=== PATIENT | male | born 1940 | race Caucasian/White ===

== ENCOUNTER 2018-11-15 21:51 | Emergency (ER) | payer MEDICARE, OTHER ==
[2018-11-15] MEDS ORDERED: Morphine 4 MG/ML VIAL ONE ×2 (22:14→22:35)
[2018-11-15] MEDS ORDERED: Ondansetron PF 4 MG/2 ML Vial ONE (22:35)
[2018-11-15 22:38] LABS: #Basophils 0.1 thou/uL (0.0-0.2); #Eosinphils 0.1 thou/uL (0.0-0.7); #Lymphocytes 2.6 thou/uL (1.20-3.40); #Monocytes 1.2 thou/uL (0.11-0.59); #Neutrophils 9.8 thou/uL (1.40-6.50); %Basophils 0.5 % (0.0-1.0); %Eosinophils 1.1 % (0.0-10.0); %Monocytes 8.5 % (0.0-10.0); Hemoglobin 12.7 g/dL (14.0-18.0); Mean Corpuscular Hemoglobin 30.7 pg (27.0-31.0); Mean Corpuscular Volume 90.3 fL (78.0-98.0); Mean Platelet Volume 7.8 fL (7.4-10.4); Platelet Count 198 thou/uL (130-400); RBC Distribution Width 12.4 % (11.5-14.5); Red Blood Cell (RBC) Count 4.14 mill/uL (4.70-6.10); White Blood Cell (WBC) Count 13.8 thou/uL (4.8-10.8)
[2018-11-15 23:00] LABS: ALT (SGPT) 14 U/L (8-55); AST (SGOT) 19 U/L (5-34); Albumin 4.3 g/dL (3.4-4.8); Alkaline Phosphatase 111 U/L (40-150); Anion Gap 19 mmol/L (10-20); BUN (Urea Nitrogen) 26 mg/dL (8.4-25.7); Bilirubin, Total 0.4 mg/dL (0.2-1.2); Calc. Creatinine Clearance 0 mL/min (70-130); Calcium 9.6 mg/dL (7.8-10.44); Carbon Dioxide 25 mmol/L (23-31); Chloride 102 mmol/L (98-107); Estimated GFR-MDRD 65; Globulin 2.7 g/dL (2.4-3.5); Glucose 122 mg/dL (83-110); Sodium 142 mmol/L (136-145)
[2018-11-15] MEDS ORDERED: HYDROmorphone 0.5 MG/0.5 ML SYRINGE ONE (23:04)
[2018-11-15] MEDS ORDERED: niCARdipine 20MG In NaCl 20 MG/200 ML BAG ONE (23:30)
--- NOTE | 2018-11-15 23:39 | CT ---
CT arteriogram chest with IV contrast and 3-D imaging CT arteriogram abdomen with IV contrast and 3-D imaging HISTORY: Chest and abdomen pain with radiation to the back. FINDINGS: Intimal flap within the lumen of the descending aorta extends from the distal arch just bey ond the left subclavian artery origin into each iliac artery. There is also extension into the left renal artery with some thrombus apparent. Along the lateral cortex of the superior pole left kidney, a 2.7 cm nonmass-like area of decreased density likely represents an infarct. There is flow within the true and false lumen. Good flow within the pulmonary arteries and the remainder of the visceral a rteries. Mild fusiform ectasia of the lower abdominal aorta. Postoperative changes the mediastinum. Calcified granulomata are consistent with healed granulomatous disease. Old bilateral rib fractures. Gallbladder surgically absent with mild associated distention of the biliary system. Prominent degenerative changes lumbar spine. Diverticula arise from the colon without adjacent inflammation. Pelvis was incompletely imaged. 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 Probable small infarct involving the superior pole left kidney. Atherosclerosis. Findings were called to Dr. Gonzalez in the emergency department at 2331 hours. Code CR.
[2018-11-15] MEDS ORDERED: Esmolol 2,500 MG/250 ML 250 ML ONE (23:46)
== END 2018-11-15 23:56 | disposition short-term general hospital (02) ==
LOC: ERS 21:51
DX: I71.01 Dissection of thoracic aorta (principal); E78.5 Hyperlipidemia, unspecified; Z79.899 Other long term (current) drug therapy
CPT/HCPCS: 71275; 80053; 84484; 85025; 93005; 96365; 96374; 96375; J1170; J2270; J2405

== ENCOUNTER 2019-09-19 10:03 | Inpatient (IN) | payer MEDICARE ==
[2019-09-19 10:28] LABS: #Eosinphils 0.3 thou/uL (0.0-0.7); #Lymphocytes 1.9 thou/uL (1.20-3.40); #Monocytes 1.1 thou/uL (0.11-0.59); #Neutrophils 7.9 thou/uL (1.40-6.50); %Lymphocytes 17.1 % (21.0-51.0); %Monocytes 9.8 % (0.0-10.0); Hemoglobin 11.3 g/dL (14.0-18.0); Mean Corpuscular HGB CONC 33.5 g/dL (32.0-36.0); Mean Corpuscular Hemoglobin 31.3 pg (27.0-31.0); Mean Corpuscular Volume 93.5 fL (78.0-98.0); Platelet Count 197 thou/uL (130-400); Red Blood Cell (RBC) Count 3.61 mill/uL (4.70-6.10); White Blood Cell (WBC) Count 11.3 thou/uL (4.8-10.8)
--- NOTE | 2019-09-19 10:28 | CT ---
CT BRAIN NONCONTRAST: DATE: 09/19/2019 HISTORY: 79-year-old male with acute stroke symptoms: Dysarthria and altered mental status. Dr. Tubbs verbally gave this stroke alert protocol report by telephone to Dr. Benitez of the ER at 10:25 A M 09/19/2019 FINDINGS: There is no evidence of acute intra-axial or extra-axial hemorrhage. There is no midline shift or any other mass effect. There is no extra-axial fluid collection. There is no evidence of obstructive hydrocephalus. Calvarium is intact. IMPRESSION: No acute intracranial findings.
--- NOTE | 2019-09-19 10:37 | RAD ---
Exam: Chest one view HISTORY:Altered mental status. First degree heart block. Comparison: 11/25/2010 FINDINGS: Cardiac silhouette:Upper normal cardiac silhouette. Stable sternotomy wires. Aorta: Interval placement of a vascular stent starting at the aortic knob and extending along the christopher cending thoracic aorta. Pulmonary vessels: Normal Costophrenic angles: Clear LUNGS: No masses or consolidation. Pneumothorax: None Osseous abnormalities: No acute osseous abnormalities. There is osteopenia. Old right rib fractures a nd chronic degenerative changes involving both shoulders. IMPRESSION: 1. No acute cardiopulmonary process. 2. Interval placement of a long segment stent involving the descending thoracic aorta, starting at th e aortic arch 3. Chronic lung parenchymal changes.
[2019-09-19 10:38] LABS: Prothrombin Time 12.7 SEC (12.0-14.7)
[2019-09-19 10:39] LABS: PTT 43.1 SEC (22.9-36.1)
[2019-09-19 10:42] LABS: ALT (SGPT) 25 U/L (8-55); AST (SGOT) 38 U/L (5-34); Albumin 3.9 g/dL (3.4-4.8); Alkaline Phosphatase 131 U/L (40-110); Anion Gap 11 mmol/L (10-20); BUN (Urea Nitrogen) 34 mg/dL (8.4-25.7); Bilirubin, Total 0.3 mg/dL (0.2-1.2); CK (CPK) 129 U/L (30-200); Calc. Creatinine Clearance 0 mL/min (70-130); Calcium 8.8 mg/dL (7.8-10.44); Carbon Dioxide 26 mmol/L (23-31); Chloride 105 mmol/L (98-107); Estimated GFR-MDRD 59; Globulin 2.8 g/dL (2.4-3.5); Glucose 98 mg/dL (83-110); Lipase 13 U/L (8-78); Potassium 4.4 mmol/L (3.5-5.1); Protein, Total 6.7 g/dL (5.8-8.1); Sodium 138 mmol/L (136-145)
[2019-09-19] MEDS ORDERED: Furosemide 100 MG/10 ML VIAL ONE (10:58)
[2019-09-19 12:03] LABS: Bilirubin Negative (Negative); Blood, Urine Negative (Negative); Clarity Clear (Clear); Glucose, Urine (Dipstick) Normal (Negative); Leukocyte Negative Leu/uL (Negative); Nitrite Negative (Negative); Protein, Urine (Dipstick) Negative (Neg-Trace); Urobilinogen Normal mg/dL (Less than 2)
[2019-09-19 14:15] LABS: Troponin I Less than 0.010 ng/mL (< 0.028)
[2019-09-19] MEDS ORDERED: Ondansetron ODT 4 MG TAB SL PRN (14:37)
[2019-09-19] MEDS ORDERED: Ondansetron PF 4 MG/2 ML Vial IVP PRN (14:37)
[2019-09-19 15:56] VITALS: BMI 27.1
[2019-09-19 16:45] LABS: Troponin I 0.016 ng/mL (< 0.028)
[2019-09-19] MEDS ORDERED: Acetaminophen 325 MG TAB PO PRN (16:49)
[2019-09-19] MEDS ORDERED: Aspirin 81 mg Enteric Coated Tablet PO SCH (17:00)
--- NOTE | 2019-09-19 17:13 | PDOC.HHP ---
Hospitalist Results - Labs Result Diagrams: 09/19/19 10:04 09/19/19 10:04 Lab results: WBC 11.3 thou/uL (4.8-10.8) H 09/19/19 10:04 Hgb 11.3 g/dL (14.0-18.0) L 09/19/19 10:04 Hct 33.7 % (42.0-52.0) L 09/19/19 10:04 MCV 93.5 fL (78.0-98.0) 09/19/19 10:04 Plt Count 197 thou/uL (130-400) 09/19/19 10:04 Neutrophils % 70.0 % (42.0-75.0) 09/19/19 10:04 Sodium 138 mmol/L (136-145) 09/19/19 10:04 Potassium 4.4 mmol/L (3.5-5.1) 09/19/19 10:04 Chloride 105 mmol/L (98-107) 09/19/19 10:04 Carbon Dioxide 26 mmol/L (23-31) 09/19/19 10:04 BUN 34 mg/dL (8.4-25.7) H 09/19/19 10:04 Creatinine 1.18 mg/dL (0.7-1.3) 09/19/19 10:04 Glucose 98 mg/dL (83-110) 09/19/19 10:04 Calcium 8.8 mg/dL (7.8-10.44) 09/19/19 10:04 Total Bilirubin 0.3 mg/dL (0.2-1.2) 09/19/19 10:04 AST 38 U/L (5-34) H 09/19/19 10:04 ALT 25 U/L (8-55) 09/19/19 10:04 Alkaline Phosphatase 131 U/L (40-110) H 09/19/19 10:04 Ammonia 20 umol/L (18-72) 09/19/19 10:04 Creatine Kinase 129 U/L (30-200) 09/19/19 10:04 Troponin I 0.016 ng/mL (< 0.028) 09/19/19 16:09 Serum Total Protein 6.7 g/dL (5.8-8.1) 09/19/19 10:04 Albumin 3.9 g/dL (3.4-4.8) 09/19/19 10:04 Lipase 13 U/L (8-78) 09/19/19 10:04 Urine Ketones Negative mg/dL (Negative) 09/19/19 11:40 Urine Blood Negative (Negative) 09/19/19 11:40 Urine Nitrite Negative (Negative) 09/19/19 11:40 Ur Leukocyte Esterase Negative Bella/uL (Negative) 09/19/19 11:40
[2019-09-19] MEDS: HYDROcodone/Acetaminophen 10/325 mg Tablet PO PRN (17:40)
--- NOTE | 2019-09-19 18:07 | PDOC.EVN ---
Event Note - Event Note Event Note: Patient seen and examined, and discussed with Gayathri Locke PA-c. Patient was brought to the hospital by his . She found him down in the floor. He does not remember the event of this AM. He says he remembers getting up this morning , and puting on his jeans. The next thing he remembers is waking in the hospital. Prior to this he was feeling fine. He denies chest pain or shortness of breath. no fever or chills, no dizziness or lightheadedness. He has never had anything like this happen before. He has had what sounds like a CABG, and Thoracic Aortic dissection repair. a few years ago, but his symptom at that time was severe back pain down the center of his back. His exam was essentially unremarkable, no worrisome murmurs Agree with the plan outlined by Gayathri, will check orthostatics, Echo, and carotid dopplers, and monitor for arrhythmia. Will also request his records from [facility], which he says he had a recent Echo. Also the records from his prior surgery will be requested as well.
[2019-09-19] MEDS ORDERED: Sodium Chloride 0.9% 500 ML IV SCH (18:15)
[2019-09-19] MEDS: Mirtazapine 15 MG TAB PO SCH (20:46)
[2019-09-19] MEDS: Carvedilol 25 MG TAB PO SCH (20:47)
[2019-09-19] MEDS ORDERED: Amlodipine 10 MG TAB PO SCH (21:00)
[2019-09-20] MEDS: HYDROcodone/Acetaminophen 10/325 mg Tablet PO PRN ×5 (00:01→20:52)
[2019-09-20 04:29] LABS: #Eosinphils 0.3 thou/uL (0.0-0.7); #Lymphocytes 2.9 thou/uL (1.20-3.40); #Monocytes 1.1 thou/uL (0.11-0.59); #Neutrophils 5.3 thou/uL (1.40-6.50); %Eosinophils 3.4 % (0.0-10.0); %Lymphocytes 29.8 % (21.0-51.0); %Monocytes 11.6 % (0.0-10.0); %Neutrophils 55.2 % (42.0-75.0); Mean Corpuscular HGB CONC 33.4 g/dL (32.0-36.0); Mean Corpuscular Hemoglobin 31.2 pg (27.0-31.0); Mean Corpuscular Volume 93.6 fL (78.0-98.0); Mean Platelet Volume 7.7 fL (7.4-10.4); Platelet Count 210 thou/uL (130-400); RBC Distribution Width 13.1 % (11.5-14.5); Red Blood Cell (RBC) Count 3.84 mill/uL (4.70-6.10); White Blood Cell (WBC) Count 9.6 thou/uL (4.8-10.8)
[2019-09-20 04:54] LABS: Anion Gap 11 mmol/L (10-20); BUN (Urea Nitrogen) 29 mg/dL (8.4-25.7); Calc. Creatinine Clearance 84 mL/min (70-130); Calcium 9.2 mg/dL (7.8-10.44); Carbon Dioxide 33 mmol/L (23-31); Cardiac Risk 3.5 (Less than 4.5); Chloride 103 mmol/L (98-107); Cholesterol 156 mg/dl (< 200 Desired); Estimated GFR-MDRD 81; Glucose 98 mg/dL (83-110); HDL Cholesterol 44 mg/dL (>60 Neg Risk); LDL Cholesterol, Calculated 102 mg/dL; Potassium 4.1 mmol/L (3.5-5.1); Sodium 143 mmol/L (136-145); Triglycerides 50 mg/dL (Less than 150)
[2019-09-20] MEDS: Aspirin 81 mg Enteric Coated Tablet PO SCH (08:36)
[2019-09-20] MEDS: Clopidogrel Bisulfate 75 MG TAB PO SCH (08:37)
[2019-09-20] MEDS: Carvedilol 25 MG TAB PO SCH (08:38)
[2019-09-20] MEDS: Enoxaparin Sodium 40 MG/0.4 ML SYRINGE SC SCH (08:39)
[2019-09-20] MEDS: Venlafaxine HCl XR 75 MG CAP PO SCH (08:39)
--- NOTE | 2019-09-20 12:34 | CON ---
DATE OF CONSULTATION: 09/20/2019 HISTORY OF PRESENT ILLNESS: Mr. Satish Hester is an 79-year-old male , who was consulted for an episode of altered mental status. The patient was brought to the hospital by his because she found him down on the floor. The patient does not remember this event. He remembers waking up in the hospital. He denies any focal weakness or focal paresthesias. He also denies tingling, numbness, dizziness, problems with swallowing. There was a concern about slurred speech. History is taken from the patient and review of the medical records. REVIEW OF SYSTEMS: The patient denies nausea, vomiting, headache, dizziness, focal weakness or paresthesias, or chest pain. ALLERGIES: NO KNOWN DRUG ALLERGIES. PAST MEDICAL HISTORY: Coronary artery disease. PAST SURGICAL HISTORY: He may have thoracic aortic dissection, status post repair. FAMILY HISTORY: No family history of seizures. SOCIAL HISTORY: Lives with his . Denies alcohol and illegal drug abuse. PHYSICAL EXAMINATION: 111/61, 66 18 HEENT: Normocephalic, atraumatic CVS: Regular rate and rhythm. CHEST: Clear. ABDOMEN: Soft. NEUROLOGIC: Mental status; the patient is alert and oriented to person, place, and time. Speech is clear. Cranial nerves 2 through 12 intact. Sensory, withdraws to pinprick bilaterally. Motor, muscle tone and bulk are normal. Strength 5/5 bilaterally. Cerebellar, intact. Reflexes, symmetric bilaterally. Gait not tested because of the patient's safety reasons. DIAGNOSTIC STUDIES: Data reviewed. I reviewed the CT of the brain, which did not reveal any acute intracranial findings. Labs were unremarkable. ASSESSMENT AND PLAN: Mr. Satish Hester is an 79-year-old male, consulted for altered mental status. The differential diagnosis includes TIA versus seizure, consider carotid Dopplers and echocardiography. Recommend MRI of the brain to rule out acute intracranial pathology. Recommend EEG to rule out presence of interictal epileptiform discharges. Continue neuro checks every 4 hours. Continue home medications. Continue aspirin and Plavix for secondary stroke prevention. Recommend checking fasting blood glucose and lipid panel. Permissive control of blood pressure at this time. Continue medical management per Primary Team. We will continue to follow. Thank you for the consult. Job ID: [id number] [facility]
[2019-09-20] MEDS: Pregabalin 75 MG CAP PO PRN (13:59)
--- NOTE | 2019-09-20 14:23 | CON ---
DATE OF CONSULTATION: HISTORY: Satish Hester is an 79-year-old white male, admitted after he was found on the floor by his . He does have history of CABG x3 in [place] in 2004. Apparently in 2008, he had coronary stents placed. He was admitted here in November 2010 for exertional dyspnea, was seen by Dr. House. He underwent Cardiolite testing, which revealed possible mild reversibility in the anteroseptal wall at the body and base. No further evaluation was performed. He also presented in October 2018 with finding of aortic dissection of the descending aorta into the left renal artery and each iliac artery. He presented with back pain with this. He then was sent to [facility] in [place]. It sounds as if he had aortic stent placement. He did not have any type of open surgical procedure performed. He denies any recent chest discomfort or shortness of breath, lightheadedness, or dizziness. He was found on the floor by his and Paramedics were called. He has no recollection of anything that happened yesterday until he woke up in the hospital. PAST MEDICAL HISTORY: Hypertension, hypercholesterolemia, osteoarthritis, coronary artery disease, and history of descending aortic dissection with stent placement. PAST SURGICAL HISTORY: CABG x3 in 2004, coronary artery stenting in 2008. Aortic stent placement for descending aortic dissection in October 2018. Right total hip replacement, left total knee replacement, cholecystectomy, and appendectomy. MEDICATIONS: 1. Amlodipine 10 mg at bedtime. 2. Carvedilol 25 b.i.d. 3. Clopidogrel 75 daily. 4. Mirtazapine 15 at bedtime. 5. Pregabalin 150 mg b.i.d. p.r.n. 6. Effexor 75 ER daily. 7. He does not take aspirin. He states that this was stopped due to excessive bruising. He states he has taken the clopidogrel since he had bypass surgery. ALLERGIES: NONE. FAMILY HISTORY: Positive for coronary artery disease. SOCIAL HISTORY: He does not smoke. He occasionally drinks beer. REVIEW OF SYSTEMS: A 10-point review of systems unremarkable. He denies any nausea, vomiting, diarrhea, or fever. PHYSICAL EXAMINATION: VITAL SIGNS: Blood pressure 111/61 and pulse of 53. HEENT: PERRL. NECK: Supple. CHEST: Clear. CARDIAC: S1 and S2 normal without any S3, S4, or murmurs. Carotid upstrokes normal without bruits. ABDOMEN: Normal bowel sounds without tenderness or organomegaly. EXTREMITIES: Revealed no clubbing or cyanosis. There is trace pedal edema. NEUROLOGIC: Grossly intact. SKIN: Warm and dry. LABORATORY DATA: EKG reveals normal sinus rhythm with left bundle-branch block. On the monitor at times, he has heart rates in the 50s. Chest x-ray revealed chronic lung parenchymal changes. There was a stent in the descending thoracic aorta starting at the aortic arch. Hemoglobin 12.0, hematocrit 35.9, white count 9600 , and platelets 210,000. Sodium 143, potassium 4.1, chloride 101, carbon dioxide 33, BUN 29, and creatinine 0.9. His BUN was up to 34 at the time of admission. Cholesterol 156, triglycerides 50, HDL 44, and LDL 102. Troponin I and CK are normal. Echocardiogram revealed mild left ventricular enlargement with ejection fraction of 45% to 50%, moderate left atrial enlargement, mild mitral regurgitation, aortic valve sclerosis with mild aortic regurgitation, mild tricuspid regurgitation, and mild pulmonic regurgitation. IMPRESSION: 1. The patient found down at home. Certainly may have had an episode of syncope with finding of bradycardia since he has been monitored. Also, he is somewhat volume depleted with elevated BUN to creatinine ratio, although he denies any vomiting or diarrhea and has not had fever. 2. Status post coronary artery bypass grafting x3 in 2004. 3. Coronary stenting in 2008. 4. History of descending aortic dissection with stenting at [facility] in [place]. 5. Hypertension. 6. Hyperlipidemia, not on a statin at the present time. 7. Positive family history. 8. Left bundle-branch block. RECOMMENDATIONS: With his bradycardia, with rates in the low 50s at times, I will reduce his dose of carvedilol and add lisinopril for blood pressure control. Also, he will be started on atorvastatin for his elevated cholesterol. He is also undergoing neurological workup. I will follow the patient with you. Job ID: [id number] [facility]
--- NOTE | 2019-09-20 14:52 | HP ---
PRIMARY CARE PHYSICIAN: Dr. Davenport. CHIEF COMPLAINT: "I was found down at home and don't remember passing out." HISTORY OF PRESENT ILLNESS: The patient is an extremely pleasant 79-year-old male, with a medical history significant for hypertension; high cholesterol; and prostate cancer, which was treated for in 2014, and a CABG with an "arterial tear" afterward in the summer of 2018. 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 He presents to the ER today after being found down at home by his . He denies urinating or defecating on himself with the incident. He does not remember passing out or falling down. He remembers getting up this morning and getting dressed and then he woke up in the ambulance on his way to the hospital. He denies feeling any different this morning while getting ready or any change in his normal activities. Denies chest pain, shortness of breath, dizziness, sick contacts. He currently denies any pain. During his ER stay, they completed a chest x-ray, which showed no acute cardiopulmonary processes and a brain CT which showed no acute intracranial findings. He was given 80 mg of Lasix IV - patient does not recall why this was given to him. They completed a series of blood work. First troponin was less than 0.010, two more are currently scheduled to continue trending them. His sodium level was 138, potassium 4.4, chloride 105, carbon dioxide 26, BUN was 34, creatinine 1.18, estimated GFR 59, glucose 98, AST 38, ALT 25, and alkaline phosphatase 131. CK 129. Ammonia level 20. WBC 11.3 , RBC 3.61, hemoglobin 11.3, and hematocrit 33.7. Urine analysis was completed. PAST MEDICAL HISTORY: Includes prostate cancer, which he was treated for in 2014, has been in remission since then; hyperlipidemia; and hypertension. PAST SURGICAL HISTORY: CABG x3 in the summer followed by an arterial tear after lifting heavy feed bags; left knee replacement; right hip replacement; and then at the age of 15, he had a left ankle surgery that had some metal components inserted. ALLERGIES: No known drug allergies. MEDICATIONS: Pregabalin 150 mg PO PRN Mirtazapine 15 mg PO HS Carvedilol 25 mg PO BID Amlodipine Besylate 10 mg PO HS Clopidogrel 75 mg PO daily Venlafaxine HCl 75 mg PO daily SOCIAL HISTORY: Denies alcohol or drug use, does occasionally chew tobacco. FAMILY HISTORY: Dad in his 80's from history of CHF. Mom after a fall which led to hemorrhagic brain bleed. Two children have passed from cystic fibrosis. REVIEW OF SYSTEMS: All other review of systems are negative unless noted in the HPI. PHYSICAL EXAMINATION: VITAL SIGNS: Temp 97.5, pulse 70, respiratory rate 16, O2 sat 99% on room air, and BP sitting 112/59. GENERAL APPEARANCE: No acute distress. Awake, alert. HEENT: Moist mucosa. Normocephalic and atraumatic. NECK: Supple, symmetric. No JVD. No lymphadenopathy. HEART: Heart has regular rate and rhythm. No murmur. No gallops. No rubs. Normal peripheral pulses. RESPIRATORY: Clear to auscultation bilaterally. No wheezes, no rales, no rhonchi. Normal chest expansion. GASTROINTESTINAL: Soft, nontender, and nondistended. Normal bowel sounds. EXTREMITIES: 1+ lower extremity edema bilaterally. No cyanosis. No clubbing. SKIN: Normal turgor. No lesions. No rashes. NEUROLOGIC: No focal deficits. Cranial nerves grossly intact. Normal sensation to touch. Slightly slurred speech but is missing bottom denture plate. MUSCULOSKELETAL: Normal tone. Normal strength. No muscle wasting. PSYCHIATRIC: Normal affect. Normal behavior. Alert and oriented x3. LABORATORY DATA: Labs were reviewed as above. Prolactin level to be added on to be completed. IMPRESSION: 1. Syncope, acute. 2. Transient ischemic attack, acute. 3. Hypertension, chronic. 4. Hyperlipidemia, chronic. PLAN: Echo ordered for the morning, orthostatics to be completed with the next vital signs check. Neurology consult to see the patient for possible syncope versus TIA. Prolactin to be run off labs that were previously drawn in ER to be closer to the time of his event this morning. Aspirin 81 mg added to his normal medication regimen. Home medications to be restarted. VTE prophylaxis, Lovenox 40 mg subcu daily. He will be admitted to the Stroke Services and monitored on telemetry overnight. Code status: MARA DPOA: Tania Nolasco [phone] Job ID: [id number] [facility]
--- NOTE | 2019-09-20 15:08 | EEG ---
Referring Physician: Martínez OROZCO EEG # [id number] TEST TYPE: ROUTINE PORTABLE INPATIENT REPORT: This EEG was performed using 24 channel [employer] video digital EEG machine with 24 disc electrodes. This was a routine EEG recording. BACKGROUND: The posterior background rhythm is 9-10 hertz. The background rhythm attenuates with eye opening and enhances with eye closure. HYPERVENTILATION: Not performed. PHOTIC STIMULATION: Bioccipital symmetric driving response is observed. SLEEP: Drowsiness and stage I sleep is observed. EEG DIAGNOSIS: NORMAL AWAKE, DROWSY AND ASLEEP EEG. Gold Leaf Roller: KATHLEEN Hammer Fitter: [email or web address] ECHOLS
--- NOTE | 2019-09-20 16:21 | PDOC.HOSPP ---
- Subjective Encounter Date: 09/20/19 Encounter Time: 16:19 Subjective: Mr. Hester was seen today in follow-up of syncope/altered mental status. Today he says he feels fine. - Objective Vital Signs & Weight: Vital Signs (12 hours) Temp Pulse Resp BP BP BP BP 09/20/19 15:39 97.6 F 55 L 16 104/63 09/20/19 14:00 93/51 L 87/50 L 09/20/19 11:35 97.6 F 53 L 16 111/61 09/20/19 08:34 62 131/66 09/20/19 07:55 97.7 F 63 16 121/61 09/20/19 04:51 97.6 F 66 16 134/77 BP Pulse Ox 09/20/19 15:39 95 09/20/19 14:00 117/58 L 09/20/19 11:35 93 L 09/20/19 08:34 09/20/19 07:55 92 L 09/20/19 04:51 95 Weight Admit Weight 199 lb 11.2 oz Weight 199 lb 11.2 oz I&O: 09/19/19 09/20/19 09/21/19 06:59 06:59 06:59 Intake Total 1560 Output Total 1415 Balance 145 Result Diagrams: 09/20/19 04:21 09/20/19 04:21 Hospitalist ROS - Medication Medications: Active Medications Generic Name Dose Route Start Last Admin Trade Name Freq PRN Reason Stop Dose Admin Hydrocodone Bitart/Acetaminophen 1 tab 09/19/19 17:26 09/20/19 11:05 [place] 10/325 PO 1 tab Q4H PRN Administration CHRONIC PAIN Amlodipine Besylate 10 mg 09/19/19 21:00 09/19/19 20:47 Norvasc PO Not Given HS JANAE Aspirin 81 mg 09/20/19 09:00 09/20/19 08:36 Ecotrin PO 81 mg DAILY JANAE Administration Clopidogrel Bisulfate 75 mg 09/20/19 09:00 09/20/19 08:37 Plavix PO 75 mg DAILY JANAE Administration Enoxaparin Sodium 40 mg 09/20/19 09:00 09/20/19 08:39 Lovenox SC 40 mg 0900 JANAE Administration Mirtazapine 15 mg 09/19/19 21:00 09/19/19 20:46 Remeron PO 15 mg HS JANAE Administration Pregabalin 150 mg 09/19/19 21:00 09/20/19 13:59 Lyrica PO 150 mg BIDPRN PRN Administration Pain Sodium Chloride 10 ml 09/19/19 21:00 09/20/19 08:38 Flush - Normal Saline IVF 10 ml Q12HR JANAE Administration Venlafaxine HCl 75 mg 09/20/19 09:00 09/20/19 08:39 Effexor Xr PO 75 mg DAILY JANAE Administration - Exam Eye: PERRL, anicteric sclera Heart: RRR, no murmur, no gallops, no rubs, normal peripheral pulses Respiratory: CTAB, no wheezes, no rales, no ronchi, normal chest expansion, no tachypnea, normal percussion Gastrointestinal: soft, non-tender, non-distended, normal bowel sounds, no palpable masses, no hepatomegaly Extremities: no cyanosis, no edema Hosp A/P (1) Syncope Code(s): R55 - SYNCOPE AND COLLAPSE Status: Acute (2) CAD (coronary artery disease) Code(s): I25.10 - ATHSCL HEART DISEASE OF [place] CORONARY ARTERY W/O ANG PCTRS Status: Acute (3) Hypertension Code(s): I10 - ESSENTIAL (PRIMARY) HYPERTENSION Status: Acute (4) Hyperlipidemia Code(s): E78.5 - HYPERLIPIDEMIA, UNSPECIFIED Status: Acute - Plan * Altered mental status- ? etiology * Will complete a Neurological evaluation as well as Cardiac Evaluation * Echo results noted- he has mildly depressed systolic function * EEG was normal * Bradycardia- agree with reduction of the dose of Metoprolol * HTN- blood pressure is low- agree with holding Lisinopril
[2019-09-20] MEDS: Carvedilol 6.25 MG TAB PO SCH (16:24)
[2019-09-20] MEDS: Lisinopril 10 MG TAB PO SCH (20:48)
[2019-09-20] MEDS: Mirtazapine 15 MG TAB PO SCH (20:52)
[2019-09-20] MEDS: Atorvastatin Calcium 40 MG TAB PO SCH (20:52)
[2019-09-21] MEDS: HYDROcodone/Acetaminophen 10/325 mg Tablet PO PRN ×4 (03:32→20:37)
[2019-09-21 04:49] LABS: Anion Gap 14 mmol/L (10-20); BUN (Urea Nitrogen) 27 mg/dL (8.4-25.7); Calc. Creatinine Clearance 88 mL/min (70-130); Calcium 9.3 mg/dL (7.8-10.44); Carbon Dioxide 24 mmol/L (23-31); Chloride 103 mmol/L (98-107); Estimated GFR-MDRD 86; Glucose 90 mg/dL (83-110); Potassium 4.4 mmol/L (3.5-5.1); Sodium 137 mmol/L (136-145)
[2019-09-21] MEDS: Venlafaxine HCl XR 75 MG CAP PO SCH (08:27)
[2019-09-21] MEDS: Carvedilol 6.25 MG TAB PO SCH ×2 (08:27→18:37)
[2019-09-21] MEDS: Aspirin 81 mg Enteric Coated Tablet PO SCH (08:28)
[2019-09-21] MEDS: Clopidogrel Bisulfate 75 MG TAB PO SCH (08:28)
[2019-09-21] MEDS: Enoxaparin Sodium 40 MG/0.4 ML SYRINGE SC SCH (08:28)
[2019-09-21] MEDS: Lisinopril 10 MG TAB PO SCH ×2 (08:29→20:39)
[2019-09-21] MEDS: Sodium Chloride 0.9% 500 ML IV SCH ×2 (10:19→15:54)
--- NOTE | 2019-09-21 10:44 | PDOC.HOSPP ---
- Subjective Encounter Date: 09/21/19 Subjective: Patient is alert and oriented to person, place and time. More interactive today and follows commands appropriately. - Objective Vital Signs & Weight: Vital Signs (12 hours) Temp Pulse Resp BP BP BP BP 09/21/19 08:47 95/55 L 87/57 L 09/21/19 08:29 100/69 09/21/19 08:27 100/69 09/21/19 07:13 98.2 F 77 18 100/69 09/21/19 04:00 98 F 76 18 140/88 09/21/19 00:00 98.2 F 64 16 137/70 BP Pulse Ox 09/21/19 08:47 134/59 L 09/21/19 08:29 09/21/19 08:27 09/21/19 07:13 94 L 09/21/19 04:00 93 L 09/21/19 00:00 92 L Weight Admit Weight 199 lb 11.2 oz Weight 199 lb 11.2 oz I&O: 09/20/19 09/21/19 09/22/19 06:59 06:59 06:59 Intake Total 1560 1920 Output Total 1415 Balance 145 1920 Result Diagrams: 09/20/19 04:21 09/21/19 04:08 Radiology Reviewed by me: Yes EKG Reviewed by me: Yes Hospitalist ROS - Review of Systems Constitutional: denies: fever, chills, sweats, weakness, malaise, other Eyes: denies: pain, vision change, conjunctivae inflammation, eyelid inflammation, redness, other ENT: denies: ear pain, ear discharge, nose pain, nose discharge, nose congestion , mouth pain, mouth swelling, throat pain, throat swelling, other Respiratory: denies: cough, dry, shortness of breath, hemoptysis, SOB with excertion, pleuritic pain, sputum, wheezing, other Cardiovascular: denies: chest pain, palpitations, orthopnea, paroxysmal noc. dyspnea, edema, light headedness, other Gastrointestinal: denies: nausea, vomiting, abdominal pain, diarrhea, constipation, melena, hematochezia, other Genitourinary: denies: dysuria, frequency, incontinence, hematuria, retention, other Musculoskeletal: reports: hand pain, foot pain Skin: denies: rash, lesions, trip, bruising, other Neurological: denies: weakness, numbness, incoordination, change in speech, confusion, seizures, other - Medication Medications: Active Medications Generic Name Dose Route Start Last Admin Trade Name Freq PRN Reason Stop Dose Admin Hydrocodone Bitart/Acetaminophen 1 tab 09/19/19 17:26 09/21/19 08:45 [place] 10/325 PO 1 tab Q4H PRN Administration CHRONIC PAIN Aspirin 81 mg 09/20/19 09:00 09/21/19 08:28 Ecotrin PO 81 mg DAILY JANAE Administration Atorvastatin Calcium 40 mg 09/20/19 21:00 09/20/19 20:52 Lipitor PO 40 mg HS JANAE Administration Carvedilol 12.5 mg 09/20/19 17:00 09/21/19 08:27 Coreg PO 12.5 mg BID-WM JANAE Administration Clopidogrel Bisulfate 75 mg 09/20/19 09:00 09/21/19 08:28 Plavix PO 75 mg DAILY JANAE Administration Enoxaparin Sodium 40 mg 09/20/19 09:00 09/21/19 08:28 Lovenox SC 40 mg 0900 JANAE Administration Sodium Chloride 500 mls @ 100 mls/hr 09/21/19 10:00 09/21/19 10:19 Normal Saline 0.9% IV 09/21/19 15:00 500 mls .Q5H JANAE Administration Lisinopril 10 mg 09/20/19 21:00 09/21/19 08:29 Zestril PO Not Given BID JANAE Mirtazapine 15 mg 09/19/19 21:00 09/20/19 20:52 Remeron PO 15 mg HS JANAE Administration Pregabalin 150 mg 09/19/19 21:00 09/20/19 13:59 Lyrica PO 150 mg BIDPRN PRN Administration Pain Sodium Chloride 10 ml 09/19/19 21:00 09/21/19 08:29 Flush - Normal Saline IVF 10 ml Q12HR JANAE Administration Venlafaxine HCl 75 mg 09/20/19 09:00 09/21/19 08:27 Effexor Xr PO 75 mg DAILY JAANE Administration - Exam General Appearance: awake alert Eye: PERRL, anicteric sclera ENT: normocephalic atraumatic, no oropharyngeal lesions, moist mucosa Neck: supple, symmetric, no JVD, no thyromegaly, no lymphadenopathy Heart: RRR Respiratory: CTAB Gastrointestinal: soft Extremities: no cyanosis, no clubbing, no edema Skin: normal turgor, no lesions, no rashes Neurological: cranial nerve grossly intact, normal sensation to touch, no weakness, no focal deficits Musculoskeletal: normal tone, normal strength, no muscle wasting Psychiatric: normal affect, normal behavior, A&O x 3 Hosp A/P (1) TIA (transient ischemic attack) Code(s): G45.9 - TRANSIENT CEREBRAL ISCHEMIC ATTACK, UNSPECIFIED Status: Acute (2) CAD (coronary artery disease) Code(s): I25.10 - ATHSCL HEART DISEASE OF [place] CORONARY ARTERY W/O ANG PCTRS Status: Acute (3) Hyperlipidemia Code(s): E78.5 - HYPERLIPIDEMIA, UNSPECIFIED Status: Acute (4) Hypertension Code(s): I10 - ESSENTIAL (PRIMARY) HYPERTENSION Status: Acute (5) Syncope Code(s): R55 - SYNCOPE AND COLLAPSE Status: Acute - Plan PT/OT History of confusion with altered mental status. Differential diagnosis includes TIA versus syncope versus seizure. Consider repeat HCT since patient cannot have MRI . EEG reviewed which was negative for seizure activity. Echocardiography showed EF 45-55 percent. No thrombus, No PFO. Continue home medications. Neurochecks every 4 hours. Continue ASA and Plavix for secondary stroke prevention. Strict control of BG and BP. Continue medical management per primary team. Plan discussed with the p[atient and the stroke unit team during daily MDR meeting.
[2019-09-21] MEDS: Pregabalin 75 MG CAP PO PRN (11:52)
--- NOTE | 2019-09-21 14:19 | CT ---
CT HEAD WITHOUT CONTRAST: INDICATION: Mental status change. Followup from prior exam. COMPARISON: Comparison is made to recent CT head of 09/19/2019. FINDINGS: Ventricles have normal size and position. Mild chronic ischemic white matter change it the periventr icular white matter is stable. There is no evidence of mass, edema, or hemorrhage. No evidence of a cute cortical infarct. No interval change apparent. IMPRESSION: No acute finding. POS: AGW
--- NOTE | 2019-09-21 14:55 | PDOC.HOSPP ---
- Subjective Encounter Date: 09/21/19 Encounter Time: 14:54 Subjective: Mr. Hester was seen today in follow-up of altered mental status. He says he feels fine, and has no complaints. He admits to feeling a little weak earlier when he got up with therapy, however. - Objective Vital Signs & Weight: Vital Signs (12 hours) Temp Pulse Resp BP BP BP BP 09/21/19 11:52 98.3 F 52 L 20 125/58 L 09/21/19 08:47 95/55 L 87/57 L 09/21/19 08:29 100/69 09/21/19 08:27 100/69 09/21/19 07:13 98.2 F 77 18 100/69 09/21/19 04:00 98 F 76 18 140/88 BP Pulse Ox 09/21/19 11:52 93 L 09/21/19 08:47 134/59 L 09/21/19 08:29 09/21/19 08:27 09/21/19 07:13 94 L 09/21/19 04:00 93 L Weight Admit Weight 199 lb 11.2 oz Weight 199 lb 11.2 oz I&O: 09/20/19 09/21/19 09/22/19 06:59 06:59 06:59 Intake Total 1560 1920 Output Total 1415 Balance 145 1920 Result Diagrams: 09/20/19 04:21 09/21/19 04:08 Hospitalist ROS - Medication Medications: Active Medications Generic Name Dose Route Start Last Admin Trade Name Freq PRN Reason Stop Dose Admin Hydrocodone Bitart/Acetaminophen 1 tab 09/19/19 17:26 09/21/19 14:12 [place] 10/325 PO 1 tab Q4H PRN Administration CHRONIC PAIN Aspirin 81 mg 09/20/19 09:00 09/21/19 08:28 Ecotrin PO 81 mg DAILY JANAE Administration Atorvastatin Calcium 40 mg 09/20/19 21:00 09/20/19 20:52 Lipitor PO 40 mg HS JANAE Administration Carvedilol 12.5 mg 09/20/19 17:00 09/21/19 08:27 Coreg PO 12.5 mg BID-WM JANAE Administration Clopidogrel Bisulfate 75 mg 09/20/19 09:00 09/21/19 08:28 Plavix PO 75 mg DAILY JANAE Administration Enoxaparin Sodium 40 mg 09/20/19 09:00 09/21/19 08:28 Lovenox SC 40 mg 0900 JANAE Administration Sodium Chloride 500 mls @ 100 mls/hr 09/21/19 10:00 09/21/19 10:19 Normal Saline 0.9% IV 09/21/19 15:00 500 mls .Q5H JANAE Administration Lisinopril 10 mg 09/20/19 21:00 09/21/19 08:29 Zestril PO Not Given BID JANAE Mirtazapine 15 mg 09/19/19 21:00 09/20/19 20:52 Remeron PO 15 mg HS JANAE Administration Pregabalin 150 mg 09/19/19 21:00 09/21/19 11:52 Lyrica PO 150 mg BIDPRN PRN Administration Pain Sodium Chloride 10 ml 09/19/19 21:00 09/21/19 08:29 Flush - Normal Saline IVF 10 ml Q12HR JANAE Administration Venlafaxine HCl 75 mg 09/20/19 09:00 09/21/19 08:27 Effexor Xr PO 75 mg DAILY JANAE Administration - Exam Eye: PERRL Heart: RRR, no gallops, no rubs, normal peripheral pulses, murmur present, II/IV Respiratory: CTAB, no wheezes, no rales, no ronchi, normal chest expansion Gastrointestinal: soft, non-tender, non-distended, normal bowel sounds, no palpable masses Extremities: no cyanosis, 1+ LE edema (+ trace edema in both lower extremities) Hosp A/P (1) Syncope Code(s): R55 - SYNCOPE AND COLLAPSE Status: Acute (2) CAD (coronary artery disease) Code(s): I25.10 - ATHSCL HEART DISEASE OF [place] CORONARY ARTERY W/O ANG PCTRS Status: Acute (3) Hypertension Code(s): I10 - ESSENTIAL (PRIMARY) HYPERTENSION Status: Acute (4) Hyperlipidemia Code(s): E78.5 - HYPERLIPIDEMIA, UNSPECIFIED Status: Acute - Plan * Altered mental status- ? etiology * Could be due to affedts of his medications ( his blood pressure has been low, as well as heart rate ) * The dose of Carvediolol has been decreased, and he has been taken off Amlodipine * Repeat CT scan of the brain was negative * He also was a bit volume depleted, and has been given IV fluids * Will monitor overnight * Hopefully home tomorrow * HTN- blood pressure is a bit low- as above * CAD- stable
[2019-09-21] MEDS: Mirtazapine 15 MG TAB PO SCH (20:38)
[2019-09-21] MEDS: Atorvastatin Calcium 40 MG TAB PO SCH (20:38)
[2019-09-22] MEDS: HYDROcodone/Acetaminophen 10/325 mg Tablet PO PRN ×4 (03:39→19:16)
[2019-09-22 05:15] LABS: Anion Gap 11 mmol/L (10-20); BUN (Urea Nitrogen) 28 mg/dL (8.4-25.7); Calc. Creatinine Clearance 83 mL/min (70-130); Calcium 9.5 mg/dL (7.8-10.44); Carbon Dioxide 30 mmol/L (23-31); Chloride 102 mmol/L (98-107); Estimated GFR-MDRD 80; Glucose 96 mg/dL (83-110); Potassium 4.2 mmol/L (3.5-5.1); Sodium 139 mmol/L (136-145)
[2019-09-22] MEDS ORDERED: Carvedilol 3.125 MG TAB PO SCH (08:00)
[2019-09-22] MEDS: Venlafaxine HCl XR 75 MG CAP PO SCH (08:16)
[2019-09-22] MEDS: Aspirin 81 mg Enteric Coated Tablet PO SCH (08:17)
[2019-09-22] MEDS: Clopidogrel Bisulfate 75 MG TAB PO SCH (08:17)
[2019-09-22] MEDS: Carvedilol 6.25 MG TAB PO SCH (08:17)
[2019-09-22] MEDS: Enoxaparin Sodium 40 MG/0.4 ML SYRINGE SC SCH (08:19)
[2019-09-22] MEDS: Lisinopril 10 MG TAB PO SCH (08:24)
[2019-09-22] MEDS ORDERED: Carvedilol 6.25 MG TAB PO SCH (08:38)
[2019-09-22] MEDS ORDERED: Lisinopril 5 MG TAB PO SCH (09:00)
[2019-09-22] MEDS ORDERED: Sodium Chloride 0.9% 500 ML IV SCH (12:00)
--- NOTE | 2019-09-22 12:04 | PDOC.HOSPP ---
- Subjective Encounter Date: 09/22/19 Encounter Time: 09:00 Subjective: pt up in bed no complains - Objective Vital Signs & Weight: Vital Signs (12 hours) Temp Pulse Resp BP BP BP BP 09/22/19 11:09 98.1 F 52 L 14 93/50 L 87/51 L 09/22/19 08:24 94/50 L 09/22/19 08:17 94/50 L 09/22/19 07:30 97.4 F L 63 14 96/55 L 09/22/19 03:42 98.1 F 62 14 111/64 09/22/19 00:06 97.5 F L 49 L 14 114/61 BP Pulse Ox 09/22/19 11:09 105/53 L 92 L 09/22/19 08:24 09/22/19 08:17 09/22/19 07:30 92 L 09/22/19 03:42 96 09/22/19 00:06 94 L Weight Admit Weight 199 lb 11.2 oz Weight 199 lb 11.2 oz I&O: 09/21/19 09/22/19 09/23/19 06:59 06:59 06:59 Intake Total 1919 Balance 192 Result Diagrams: 09/20/19 04:21 09/22/19 04:37 Hospitalist ROS - Review of Systems Respiratory: denies: cough, dry, shortness of breath, hemoptysis, SOB with excertion, pleuritic pain, sputum, wheezing, other Cardiovascular: denies: chest pain, palpitations, orthopnea, paroxysmal noc. dyspnea, edema, light headedness, other Gastrointestinal: denies: nausea, vomiting, abdominal pain, diarrhea, constipation, melena, hematochezia, other - Medication Medications: Active Medications Generic Name Dose Route Start Last Admin Trade Name Freq PRN Reason Stop Dose Admin Hydrocodone Bitart/Acetaminophen 1 tab 09/19/19 17:26 09/22/19 08:19 [place] 10/325 PO 1 tab Q4H PRN Administration CHRONIC PAIN Aspirin 81 mg 09/20/19 09:00 09/22/19 08:17 Ecotrin PO 81 mg DAILY JANAE Administration Atorvastatin Calcium 40 mg 09/20/19 21:00 09/21/19 20:38 Lipitor PO 40 mg HS JANAE Administration Clopidogrel Bisulfate 75 mg 09/20/19 09:00 09/22/19 08:17 Plavix PO 75 mg DAILY JANAE Administration Enoxaparin Sodium 40 mg 09/20/19 09:00 09/22/19 08:19 Lovenox SC 40 mg 0900 JANAE Administration Mirtazapine 15 mg 09/19/19 21:00 09/21/19 20:38 Remeron PO 15 mg HS JANAE Administration Pregabalin 150 mg 09/19/19 21:00 09/21/19 11:52 Lyrica PO 150 mg BIDPRN PRN Administration Pain Sodium Chloride 10 ml 09/19/19 21:00 09/22/19 08:25 Flush - Normal Saline IVF 10 ml Q12HR JANAE Administration Venlafaxine HCl 75 mg 09/20/19 09:00 09/22/19 08:16 Effexor Xr PO 75 mg DAILY JANAE Administration - Exam Heart: negative: RRR, no murmur, no gallops, no rubs, normal peripheral pulses, irregular, diminshed peripheral pulses, murmur present, II/IV, III/IV Respiratory: negative: CTAB, no wheezes, no rales, no ronchi, normal chest expansion, no tachypnea, normal percussion, rales, rhonchi, tachypneic, wheezes Gastrointestinal: negative: soft, non-tender, non-distended, normal bowel sounds , no palpable masses, no hepatomegaly, no splenomegaly, no bruit, no guarding, no rigidity, tender to palpation, distended, diminished bowl sounds, voluntary guarding Extremities: negative: no cyanosis, no clubbing, no edema, 1+ LE edema, 2+ LE edema, clubbing Hosp A/P (1) CAD (coronary artery disease) Code(s): I25.10 - ATHSCL HEART DISEASE OF [place] CORONARY ARTERY W/O ANG PCTRS Status: Acute (2) Hyperlipidemia Code(s): E78.5 - HYPERLIPIDEMIA, UNSPECIFIED Status: Acute (3) Hypertension Code(s): I10 - ESSENTIAL (PRIMARY) HYPERTENSION Status: Acute (4) Syncope Code(s): R55 - SYNCOPE AND COLLAPSE Status: Acute - Plan pt states that he has lost 10lbs in the past 3 months. He states he has no appetite but has been eating well her per pt. He has been given ns bolus and continues to be orthostatic. will stop his lisinopril and decrease his coreg to 3.125mg bid. He is still bradycardiac. He does not feel dizzy when he gets up. He does not recall what happened or had no prodromal symptoms prior to his syncopal episode. i will get a cortisol level in am. His ekg indicated LBBB will get prior ekg. Ef is 40-45%. Blood pressure in both arm are similar no different. eeg negative, ct brain negative. pt has not been on any new meds according to him. prior to this even he went fishing with his grandchildren but was not out in the sun was in shade. Per pt he thinks he was drinking water but not too much.
--- NOTE | 2019-09-22 13:55 | PDOC.CPN ---
- Subjective Date: 09/22/19 Time: 13:53 Interval history: No new issues, still fatigued and tired. - Review of Systems General: reports: fatigue. denies: fever/chills, weight/appetite/sleep changes , night sweats Respiratory: denies: cough, congestion, shortness of breath, exercise intolerance Cardiovascular: denies: chest pain, palpitation, edema, paroxysmal nocturnal dyspnea, orthopnea Musculoskeletal: denies: pain, tenderness, stiffness, swelling, arthritis/ arthralgias Neurological: denies: numbness, syncope, seizure, weakness - Objective Allergies/Adverse Reactions: Allergies Allergy/AdvReac Type Severity Reaction Status Date / Time No Known Allergies Allergy Unverified 09/19/19 14:37 Visit Medications: Current Medications Acetaminophen (Tylenol) 650 mg PO Q4H PRN PRN Reason: Headache/Fever/Mild Pain (1-3) Hydrocodone Bitart/Acetaminophen ([place] 10/325) 1 tab PO Q4H PRN PRN Reason: CHRONIC PAIN Last Admin: 09/22/19 13:11 Dose: 1 tab Aspirin (Ecotrin) 81 mg PO DAILY [facility] Last Admin: 09/22/19 08:17 Dose: 81 mg Atorvastatin Calcium (Lipitor) 40 mg PO [facility] Last Admin: 09/21/19 20:38 Dose: 40 mg Carvedilol (Coreg) 3.125 mg PO BID-[facility] Clopidogrel Bisulfate (Plavix) 75 mg PO DAILY [facility] Last Admin: 09/22/19 08:17 Dose: 75 mg Enoxaparin Sodium (Lovenox) 40 mg SC 0900 [facility] Last Admin: 09/22/19 08:19 Dose: 40 mg Mirtazapine (Remeron) 15 mg PO [facility] Last Admin: 09/21/19 20:38 Dose: 15 mg Pregabalin (Lyrica) 150 mg PO BIDPRN PRN PRN Reason: Pain Last Admin: 09/21/19 11:52 Dose: 150 mg Sodium Chloride (Flush - Normal Saline) 10 ml IVF Q12HR [facility] Last Admin: 09/22/19 08:25 Dose: 10 ml Sodium Chloride (Flush - Normal Saline) 10 ml IVF PRN PRN PRN Reason: Saline Flush Venlafaxine HCl (Effexor Xr) 75 mg PO DAILY [facility] Last Admin: 09/22/19 08:16 Dose: 75 mg Vital Signs & Weight: Vital Signs Temp Pulse Resp BP BP BP BP 09/22/19 11:09 98.1 F 52 L 14 93/50 L 87/51 L 09/22/19 08:24 94/50 L 09/22/19 08:17 94/50 L 09/22/19 08:15 09/22/19 07:30 97.4 F L 63 14 96/55 L 09/22/19 03:42 98.1 F 62 14 111/64 BP Pulse Ox 09/22/19 11:09 105/53 L 92 L 09/22/19 08:24 09/22/19 08:17 09/22/19 08:15 93 L 09/22/19 07:30 92 L 09/22/19 03:42 96 Admit Weight 199 lb 11.2 oz Weight 199 lb 11.2 oz - Physical Exam General: alert & oriented x3 HEENT: mucus membranes moist Neck: supple neck Cardiac: regular rate and rhythm, bradycardia Lungs: clear to auscultation Neuro: grossly intact Abdomen: active bowel sounds Extremities: 1+ LE edema Skin: clear Musculoskeletal: no pain - Labs Result Diagrams: 09/20/19 04:21 09/22/19 04:37 Troponin/CKMB Troponin I 0.016 ng/mL (< 0.028) 09/19/19 16:09 - Telemetry Sinus rhythms and dysrhythmias: sinus bradycardia (< 50 bpm) - Assessment/Plan Assessment/Plan: 1. Found down at home, due to bradycardia? 2. S CAD s/p CABG 2004 3. Coronary stents in 2008 4. Descending aortic dissection s./p stent in 2019 5. LBBB 6. Hypoi/tension 7. Bradycardia PLAN: - Continue IV fluids - CV stable, no new recs. - Continue to monitor. HR in the mid to upper 40's.
[2019-09-22] MEDS: Carvedilol 3.125 MG TAB PO SCH (16:15)
[2019-09-22] MEDS: Atorvastatin Calcium 40 MG TAB PO SCH (20:54)
[2019-09-22] MEDS: Mirtazapine 15 MG TAB PO SCH (20:54)
[2019-09-23] MEDS: HYDROcodone/Acetaminophen 10/325 mg Tablet PO PRN ×4 (02:02→20:33)
[2019-09-23 05:03] LABS: #Eosinphils 0.3 thou/uL (0.0-0.7); #Lymphocytes 2.3 thou/uL (1.20-3.40); #Monocytes 0.8 thou/uL (0.11-0.59); #Neutrophils 3.8 thou/uL (1.40-6.50); %Basophils 0.5 % (0.0-1.0); %Eosinophils 3.7 % (0.0-10.0); %Lymphocytes 32.1 % (21.0-51.0); %Monocytes 10.8 % (0.0-10.0); %Neutrophils 52.9 % (42.0-75.0); Hemoglobin 11.2 g/dL (14.0-18.0); Mean Corpuscular HGB CONC 33.4 g/dL (32.0-36.0); Mean Corpuscular Hemoglobin 30.9 pg (27.0-31.0); Mean Corpuscular Volume 92.4 fL (78.0-98.0); Mean Platelet Volume 8.1 fL (7.4-10.4); Platelet Count 208 thou/uL (130-400); RBC Distribution Width 12.9 % (11.5-14.5); Red Blood Cell (RBC) Count 3.63 mill/uL (4.70-6.10); White Blood Cell (WBC) Count 7.1 thou/uL (4.8-10.8)
[2019-09-23 05:20] LABS: Anion Gap 11 mmol/L (10-20); BUN (Urea Nitrogen) 25 mg/dL (8.4-25.7); Calc. Creatinine Clearance 88 mL/min (70-130); Calcium 9.2 mg/dL (7.8-10.44); Carbon Dioxide 27 mmol/L (23-31); Chloride 104 mmol/L (98-107); Estimated GFR-MDRD 86; Glucose 92 mg/dL (83-110); Potassium 4.4 mmol/L (3.5-5.1); Sodium 138 mmol/L (136-145)
[2019-09-23] MEDS: Venlafaxine HCl XR 75 MG CAP PO SCH (08:50)
[2019-09-23] MEDS: Aspirin 81 mg Enteric Coated Tablet PO SCH (08:51)
[2019-09-23] MEDS: Enoxaparin Sodium 40 MG/0.4 ML SYRINGE SC SCH (08:51)
[2019-09-23] MEDS: Carvedilol 3.125 MG TAB PO SCH (08:51)
[2019-09-23] MEDS: Clopidogrel Bisulfate 75 MG TAB PO SCH (08:51)
--- NOTE | 2019-09-23 11:36 | PDOC.CPN ---
- Subjective Date: 09/23/19 Time: 11:34 Interval history: No new issues. Still feels tired and worn out. Monitor with bradycardia in the mid 40's. No angina. - Review of Systems General: denies: fever/chills, weight/appetite/sleep changes, night sweats, fatigue Respiratory: denies: cough, congestion, shortness of breath, exercise intolerance Cardiovascular: denies: chest pain, palpitation, edema, paroxysmal nocturnal dyspnea, orthopnea Gastrointestinal: denies: nausea, vomiting, diarrhea, constipation, abd pain, GI bleeding Musculoskeletal: denies: pain, tenderness, stiffness, swelling, arthritis/ arthralgias Neurological: denies: numbness, syncope, seizure, weakness - Objective Allergies/Adverse Reactions: Allergies Allergy/AdvReac Type Severity Reaction Status Date / Time No Known Allergies Allergy Unverified 09/19/19 14:37 Visit Medications: Current Medications Acetaminophen (Tylenol) 650 mg PO Q4H PRN PRN Reason: Headache/Fever/Mild Pain (1-3) Hydrocodone Bitart/Acetaminophen ([place] 10/325) 1 tab PO Q4H PRN PRN Reason: CHRONIC PAIN Last Admin: 09/23/19 08:50 Dose: 1 tab Aspirin (Ecotrin) 81 mg PO DAILY [facility] Last Admin: 09/23/19 08:51 Dose: 81 mg Atorvastatin Calcium (Lipitor) 40 mg PO [facility] Last Admin: 09/22/19 20:54 Dose: 40 mg Carvedilol (Coreg) 3.125 mg PO BID-[facility] Last Admin: 09/23/19 08:51 Dose: 3.125 mg Clopidogrel Bisulfate (Plavix) 75 mg PO DAILY [facility] Last Admin: 09/23/19 08:51 Dose: 75 mg Enoxaparin Sodium (Lovenox) 40 mg SC 0900 [facility] Last Admin: 09/23/19 08:51 Dose: 40 mg Mirtazapine (Remeron) 15 mg PO HS [facility] Last Admin: 09/22/19 20:54 Dose: 15 mg Pregabalin (Lyrica) 150 mg PO BIDPRN PRN PRN Reason: Pain Last Admin: 09/21/19 11:52 Dose: 150 mg Sodium Chloride (Flush - Normal Saline) 10 ml IVF Q12HR [facility] Last Admin: 09/23/19 08:51 Dose: 10 ml Sodium Chloride (Flush - Normal Saline) 10 ml IVF PRN PRN PRN Reason: Saline Flush Venlafaxine HCl (Effexor Xr) 75 mg PO DAILY JANAE Last Admin: 09/23/19 08:50 Dose: 75 mg Vital Signs & Weight: Vital Signs Temp Pulse Resp BP BP BP Pulse Ox 09/23/19 11:21 98.3 F 48 L 12 125/58 L 107/69 116/69 94 L 09/23/19 08:51 94 L 09/23/19 07:37 98.0 F 62 14 107/61 94 L 09/23/19 04:01 97.7 F 60 16 118/61 93 L 09/22/19 23:52 97.7 F 56 L 18 135/61 93 L Admit Weight 199 lb 11.2 oz Weight 199 lb 11.2 oz - Physical Exam General: alert & oriented x3 HEENT: mucus membranes moist Neck: supple neck Cardiac: regular rate and rhythm, bradycardia Lungs: clear to auscultation Neuro: grossly intact Abdomen: active bowel sounds Extremities: no edema Skin: clear Musculoskeletal: no pain - Labs Result Diagrams: 09/23/19 04:41 09/23/19 04:41 Troponin/CKMB Troponin I 0.016 ng/mL (< 0.028) 09/19/19 16:09 - Telemetry Sinus rhythms and dysrhythmias: sinus bradycardia (< 50 bpm) - Assessment/Plan Assessment/Plan: 1. Found down at home, due to bradycardia? 2. S CAD s/p CABG 2004 3. Coronary stents in 2008 4. Descending aortic dissection s./p stent in 2019 5. LBBB 6. Hypoi/tension 7. Bradycardia HR in the miod 40's. PLAN: - Will stop BB. - Continue Tele monitor. - Dr. uKo will follow up in the morning.
--- NOTE | 2019-09-23 19:35 | PDOC.HOSPP ---
- Subjective Encounter Date: 09/23/19 Encounter Time: 11:15 Subjective: pt up in bed feels well and does not feel dizzy. - Objective Vital Signs & Weight: Vital Signs (12 hours) Temp Pulse Resp BP BP BP BP 09/23/19 15:19 97.7 F 65 14 140/76 09/23/19 11:21 98.3 F 48 L 12 125/58 L 107/69 116/69 09/23/19 10:10 116/69 09/23/19 10:08 107/69 09/23/19 10:06 125/55 L 09/23/19 08:51 09/23/19 07:37 98.0 F 62 14 107/61 Pulse Ox 09/23/19 15:19 96 09/23/19 11:21 94 L 09/23/19 10:10 09/23/19 10:08 09/23/19 10:06 09/23/19 08:51 94 L 09/23/19 07:37 94 L Weight Admit Weight 199 lb 11.2 oz Weight 199 lb 11.2 oz I&O: 09/22/19 09/23/19 09/24/19 06:59 06:59 06:59 Intake Total 600 Balance 600 Result Diagrams: 09/23/19 04:41 09/23/19 04:41 Hospitalist ROS - Review of Systems Respiratory: denies: cough, dry, shortness of breath, hemoptysis, SOB with excertion, pleuritic pain, sputum, wheezing, other Cardiovascular: denies: chest pain, palpitations, orthopnea, paroxysmal noc. dyspnea, edema, light headedness, other Gastrointestinal: denies: nausea, vomiting, abdominal pain, diarrhea, constipation, melena, hematochezia, other - Medication Medications: Active Medications Generic Name Dose Route Start Last Admin Trade Name Freq PRN Reason Stop Dose Admin Hydrocodone Bitart/Acetaminophen 1 tab 09/19/19 17:26 09/23/19 15:37 [place] 10/325 PO 1 tab Q4H PRN Administration CHRONIC PAIN Aspirin 81 mg 09/20/19 09:00 09/23/19 08:51 Ecotrin PO 81 mg DAILY JANAE Administration Atorvastatin Calcium 40 mg 09/20/19 21:00 09/22/19 20:54 Lipitor PO 40 mg HS JANAE Administration Clopidogrel Bisulfate 75 mg 09/20/19 09:00 09/23/19 08:51 Plavix PO 75 mg DAILY JANAE Administration Enoxaparin Sodium 40 mg 09/20/19 09:00 09/23/19 08:51 Lovenox SC 40 mg 0900 JANAE Administration Mirtazapine 15 mg 09/19/19 21:00 09/22/19 20:54 Remeron PO 15 mg HS JANAE Administration Pregabalin 150 mg 09/19/19 21:00 09/21/19 11:52 Lyrica PO 150 mg BIDPRN PRN Administration Pain Sodium Chloride 10 ml 09/19/19 21:00 09/23/19 08:51 Flush - Normal Saline IVF 10 ml Q12HR JANAE Administration Venlafaxine HCl 75 mg 09/20/19 09:00 09/23/19 08:50 Effexor Xr PO 75 mg DAILY JANAE Administration - Exam Respiratory: negative: CTAB, no wheezes, no rales, no ronchi, normal chest expansion, no tachypnea, normal percussion, rales, rhonchi, tachypneic, wheezes Gastrointestinal: negative: soft, non-tender, non-distended, normal bowel sounds , no palpable masses, no hepatomegaly, no splenomegaly, no bruit, no guarding, no rigidity, tender to palpation, distended, diminished bowl sounds, voluntary guarding Extremities: negative: no cyanosis, no clubbing, no edema, 1+ LE edema, 2+ LE edema, clubbing Musculoskeletal: negative: normal tone, normal strength, no muscle wasting, generalized weakness, diffuse muscle atrophy Hosp A/P (1) CAD (coronary artery disease) Code(s): I25.10 - ATHSCL HEART DISEASE OF [place] CORONARY ARTERY W/O ANG PCTRS Status: Acute (2) Hyperlipidemia Code(s): E78.5 - HYPERLIPIDEMIA, UNSPECIFIED Status: Acute (3) Hypertension Code(s): I10 - ESSENTIAL (PRIMARY) HYPERTENSION Status: Acute (4) Syncope Code(s): R55 - SYNCOPE AND COLLAPSE Status: Acute - Plan pt states that he has lost 10lbs in the past 3 months. He states he has no appetite but has been eating well her per pt. He has been given ns bolus and continues to be orthostatic. will stop his lisinopril and decrease his coreg to 3.125mg bid. He is still bradycardiac. He does not feel dizzy when he gets up. He does not recall what happened or had no prodromal symptoms prior to his syncopal episode. i will get a cortisol level in am. His ekg indicated LBBB will get prior ekg. Ef is 40-45%. Blood pressure in both arm are similar no different. eeg negative, ct brain negative. pt has not been on any new meds according to him. prior to this even he went fishing with his grandchildren but was not out in the sun was in shade. Per pt he thinks he was drinking water but not too much. 5/ cortisol is normal. pt still has bradycardia. cardio stopped his bb. his bp is improved. orthostatic is negative today.
[2019-09-23] MEDS: Atorvastatin Calcium 40 MG TAB PO SCH (20:33)
[2019-09-23] MEDS: Mirtazapine 15 MG TAB PO SCH (20:33)
[2019-09-24] MEDS: HYDROcodone/Acetaminophen 10/325 mg Tablet PO PRN ×6 (00:25→21:02)
[2019-09-24 05:59] LABS: Anion Gap 12 mmol/L (10-20); BUN (Urea Nitrogen) 20 mg/dL (8.4-25.7); Calc. Creatinine Clearance 89 mL/min (70-130); Calcium 9.3 mg/dL (7.8-10.44); Carbon Dioxide 27 mmol/L (23-31); Chloride 104 mmol/L (98-107); Estimated GFR-MDRD 87; Glucose 91 mg/dL (83-110); Potassium 4.1 mmol/L (3.5-5.1); Sodium 139 mmol/L (136-145)
[2019-09-24] MEDS: Venlafaxine HCl XR 75 MG CAP PO SCH (08:52)
[2019-09-24] MEDS: Aspirin 81 mg Enteric Coated Tablet PO SCH (08:52)
[2019-09-24] MEDS: Clopidogrel Bisulfate 75 MG TAB PO SCH (08:52)
[2019-09-24] MEDS: Enoxaparin Sodium 40 MG/0.4 ML SYRINGE SC SCH (08:53)
--- NOTE | 2019-09-24 11:25 | PDOC.HOSPP ---
- Subjective Encounter Date: 09/24/19 Subjective: Patient is alert, awake and interactive. - Objective Vital Signs & Weight: Vital Signs (12 hours) Temp Pulse Resp BP BP Pulse Ox 09/24/19 07:31 97.6 F 65 16 138/75 95 09/24/19 04:00 97.8 F 57 L 16 140/67 95 09/24/19 00:26 97.3 F L 65 20 141/74 H 94 L Weight Admit Weight 199 lb 11.2 oz Weight 199 lb 11.2 oz I&O: 09/23/19 09/24/19 09/25/19 06:59 06:59 06:59 Intake Total 600 Balance 600 Result Diagrams: 09/23/19 04:41 09/24/19 05:06 Radiology Reviewed by me: Yes EKG Reviewed by me: Yes Hospitalist ROS - Review of Systems Constitutional: denies: fever, chills, sweats, weakness, malaise, other Eyes: denies: pain, vision change, conjunctivae inflammation, eyelid inflammation, redness, other ENT: denies: ear pain, ear discharge, nose pain, nose discharge, nose congestion , mouth pain, mouth swelling, throat pain, throat swelling, other Respiratory: denies: cough, dry, shortness of breath, hemoptysis, SOB with excertion, pleuritic pain, sputum, wheezing, other Cardiovascular: reports: light headedness. denies: chest pain, palpitations, orthopnea, paroxysmal noc. dyspnea, edema, other Gastrointestinal: denies: nausea, vomiting, abdominal pain, diarrhea, constipation, melena, hematochezia, other Genitourinary: denies: dysuria, frequency, incontinence, hematuria, retention, other Musculoskeletal: denies: neck pain, shoulder pain, arm pain, back pain, hand pain, leg pain, foot pain, other Skin: denies: rash, lesions, trip, bruising, other Neurological: denies: weakness, numbness, incoordination, change in speech, confusion, seizures, other - Medication Medications: Active Medications Generic Name Dose Route Start Last Admin Trade Name Freq PRN Reason Stop Dose Admin Hydrocodone Bitart/Acetaminophen 1 tab 09/19/19 17:26 09/24/19 08:52 [place] 10/325 PO 1 tab Q4H PRN Administration CHRONIC PAIN Aspirin 81 mg 09/20/19 09:00 09/24/19 08:52 Ecotrin PO 81 mg DAILY JANAE Administration Atorvastatin Calcium 40 mg 09/20/19 21:00 09/23/19 20:33 Lipitor PO 40 mg HS JANAE Administration Clopidogrel Bisulfate 75 mg 09/20/19 09:00 09/24/19 08:52 Plavix PO 75 mg DAILY JANAE Administration Enoxaparin Sodium 40 mg 09/20/19 09:00 09/24/19 08:53 Lovenox SC 40 mg 0900 JANAE Administration Mirtazapine 15 mg 09/19/19 21:00 09/23/19 20:33 Remeron PO 15 mg HS JANAE Administration Pregabalin 150 mg 09/19/19 21:00 09/21/19 11:52 Lyrica PO 150 mg BIDPRN PRN Administration Pain Sodium Chloride 10 ml 09/19/19 21:00 09/24/19 08:53 Flush - Normal Saline IVF 10 ml Q12HR JANAE Administration Venlafaxine HCl 75 mg 09/20/19 09:00 09/24/19 08:52 Effexor Xr PO 75 mg DAILY JANAE Administration - Exam General Appearance: awake alert Eye: PERRL, anicteric sclera ENT: normocephalic atraumatic Neck: supple Heart: RRR Respiratory: CTAB Gastrointestinal: soft Extremities: no cyanosis, no clubbing, no edema Skin: normal turgor Neurological: cranial nerve grossly intact, normal sensation to touch, no weakness, no focal deficits, no new deficit Musculoskeletal: normal tone, normal strength, no muscle wasting Psychiatric: normal affect, normal behavior, A&O x 3 Hosp A/P (1) TIA (transient ischemic attack) Code(s): G45.9 - TRANSIENT CEREBRAL ISCHEMIC ATTACK, UNSPECIFIED Status: Acute (2) CAD (coronary artery disease) Code(s): I25.10 - ATHSCL HEART DISEASE OF [place] CORONARY ARTERY W/O ANG PCTRS Status: Acute (3) Hyperlipidemia Code(s): E78.5 - HYPERLIPIDEMIA, UNSPECIFIED Status: Acute (4) Hypertension Code(s): I10 - ESSENTIAL (PRIMARY) HYPERTENSION Status: Acute (5) Syncope Code(s): R55 - SYNCOPE AND COLLAPSE Status: Acute (6) Bradycardia by electrocardiogram Code(s): R00.1 - BRADYCARDIA, UNSPECIFIED Status: Acute - Plan History of confusion with altered mental status. Differential diagnosis included TIA versus syncope versus seizure. Most likely cardiogenic due to persistent bradycardia since neurology workup is negative.. Repeat HCT negative for acute intracranial pathology. EEG reviewed which was negative for seizure activity. Echocardiography showed EF 45-55 percent. No thrombus, No PFO. Continue home medications. Neurochecks every 4 hours. Continue ASA and Plavix for secondary stroke prevention. Strict control of BG and BP. Persistent bradycardia. Cardiology on board. Continue medical management per primary team and cardiology. No further recommendations from neurology perspective. Plan discussed with the patient and the stroke unit team during daily MDR meeting.
--- NOTE | 2019-09-24 15:15 | PDOC.HOSPP ---
- Subjective Encounter Date: 09/24/19 Encounter Time: 11:15 Subjective: pt up in bed no complains - Objective Vital Signs & Weight: Vital Signs (12 hours) Temp Pulse Resp BP BP BP BP 09/24/19 13:10 120/62 128/65 135/68 09/24/19 11:19 97.8 F 65 16 113/64 09/24/19 07:31 97.6 F 65 16 138/75 09/24/19 04:00 97.8 F 57 L 16 140/67 Pulse Ox 09/24/19 13:10 09/24/19 11:19 95 09/24/19 07:31 95 09/24/19 04:00 95 Weight Admit Weight 199 lb 11.2 oz Weight 199 lb 11.2 oz I&O: 09/23/19 09/24/19 09/25/19 06:59 06:59 06:59 Intake Total 600 Balance 600 Result Diagrams: 09/23/19 04:41 09/24/19 05:06 Hospitalist ROS - Review of Systems Cardiovascular: denies: chest pain, palpitations, orthopnea, paroxysmal noc. dyspnea, edema, light headedness, other Gastrointestinal: denies: nausea, vomiting, abdominal pain, diarrhea, constipation, melena, hematochezia, other Genitourinary: denies: dysuria, frequency, incontinence, hematuria, retention, other - Medication Medications: Active Medications Generic Name Dose Route Start Last Admin Trade Name Freq PRN Reason Stop Dose Admin Hydrocodone Bitart/Acetaminophen 1 tab 09/19/19 17:26 09/24/19 13:08 [place] 10/325 PO 1 tab Q4H PRN Administration CHRONIC PAIN Aspirin 81 mg 09/20/19 09:00 09/24/19 08:52 Ecotrin PO 81 mg DAILY JANAE Administration Atorvastatin Calcium 40 mg 09/20/19 21:00 09/23/19 20:33 Lipitor PO 40 mg HS JANAE Administration Clopidogrel Bisulfate 75 mg 09/20/19 09:00 09/24/19 08:52 Plavix PO 75 mg DAILY JANAE Administration Enoxaparin Sodium 40 mg 09/20/19 09:00 09/24/19 08:53 Lovenox SC 40 mg 0900 JANAE Administration Mirtazapine 15 mg 09/19/19 21:00 09/23/19 20:33 Remeron PO 15 mg HS JANAE Administration Pregabalin 150 mg 09/19/19 21:00 09/21/19 11:52 Lyrica PO 150 mg BIDPRN PRN Administration Pain Sodium Chloride 10 ml 09/19/19 21:00 09/24/19 08:53 Flush - Normal Saline IVF 10 ml Q12HR JANAE Administration Venlafaxine HCl 75 mg 09/20/19 09:00 09/24/19 08:52 Effexor Xr PO 75 mg DAILY JANAE Administration - Exam Heart: negative: RRR, no murmur, no gallops, no rubs, normal peripheral pulses, irregular, diminshed peripheral pulses, murmur present, II/IV, III/IV Respiratory: negative: CTAB, no wheezes, no rales, no ronchi, normal chest expansion, no tachypnea, normal percussion, rales, rhonchi, tachypneic, wheezes Gastrointestinal: negative: soft, non-tender, non-distended, normal bowel sounds , no palpable masses, no hepatomegaly, no splenomegaly, no bruit, no guarding, no rigidity, tender to palpation, distended, diminished bowl sounds, voluntary guarding Extremities: 1+ LE edema Hosp A/P (1) CAD (coronary artery disease) Code(s): I25.10 - ATHSCL HEART DISEASE OF [place] CORONARY ARTERY W/O ANG PCTRS Status: Acute (2) Hyperlipidemia Code(s): E78.5 - HYPERLIPIDEMIA, UNSPECIFIED Status: Acute (3) Hypertension Code(s): I10 - ESSENTIAL (PRIMARY) HYPERTENSION Status: Acute (4) Syncope Code(s): R55 - SYNCOPE AND COLLAPSE Status: Acute - Plan pt states that he has lost 10lbs in the past 3 months. He states he has no appetite but has been eating well her per pt. He has been given ns bolus and continues to be orthostatic. will stop his lisinopril and decrease his coreg to 3.125mg bid. He is still bradycardiac. He does not feel dizzy when he gets up. He does not recall what happened or had no prodromal symptoms prior to his syncopal episode. i will get a cortisol level in am. His ekg indicated LBBB will get prior ekg. Ef is 40-45%. Blood pressure in both arm are similar no different. eeg negative, ct brain negative. pt has not been on any new meds according to him. prior to this even he went fishing with his grandchildren but was not out in the sun was in shade. Per pt he thinks he was drinking water but not too much. 09/22 cortisol is normal. pt still has bradycardia. cardio stopped his bb. his bp is improved. orthostatic is negative today. 09/23 pt will be evaluated by ep. his bp and bradycardia has improved. will await ep recommendation.
[2019-09-24] MEDS: Mirtazapine 15 MG TAB PO SCH (21:02)
[2019-09-24] MEDS: Atorvastatin Calcium 40 MG TAB PO SCH (21:03)
[2019-09-25] MEDS: HYDROcodone/Acetaminophen 10/325 mg Tablet PO PRN ×6 (01:02→22:08)
[2019-09-25 05:46] LABS: Anion Gap 17 mmol/L (10-20); BUN (Urea Nitrogen) 22 mg/dL (8.4-25.7); Calc. Creatinine Clearance 91 mL/min (70-130); Calcium 9.6 mg/dL (7.8-10.44); Carbon Dioxide 22 mmol/L (23-31); Chloride 103 mmol/L (98-107); Estimated GFR-MDRD 89; Glucose 85 mg/dL (83-110); Potassium 4.5 mmol/L (3.5-5.1); Sodium 137 mmol/L (136-145)
--- NOTE | 2019-09-25 06:17 | CON ---
DATE OF CONSULTATION: 09/24/2019 Dictated by Quita Raya, nurse practitioner, acting as a scribe for Dr. Adama Bishop. Consultation is performed by Dr. Adama Bishop. REASON FOR CONSULTATION: Consideration for pacemaker versus ICD. HISTORY OF PRESENT ILLNESS: Mr. Hester is an 79-year-old gentleman who was found down at home by his . She called 911 and he was brought to the hospital for further evaluation. He denies any symptoms preceding passing out, but does not recall the event. The last thing he remembers is waking up in the hospital. Since being admitted, he has been found to be bradycardic and symptomatic with this. His beta-john therapy has been discontinued. Neurologic evaluation has been conducted as well as there was some concern for TIA versus stroke or seizure activity. So far neurologic evaluation has been negative. EEG was negative as well as a CT of the brain. Mr. Hester was found to have a left bundle-branch block on his 12-lead EKG and his ejection fraction is 40% to 45% by an echocardiogram performed in this hospital stay. EP consultation is requested to evaluate Mr. Hester for possible pacing versus ICD therapy. Mr. Hester has a significant cardiovascular history. He had undergone a 3-vessel bypass in [place] in 2004. In 2008, he had coronary stent placed. In 2010, he was admitted to [facility] for exertional dyspnea and underwent a Cardiolite stress test, that had some mild reversibility of the anterior septal wall. In 10/2018, he was found to have an aortic dissection into each iliac and the left renal artery and underwent stenting after being transferred to [facility] in [place]. PAST MEDICAL HISTORY: 1. Hypertension. 2. Hypercholesterolemia. 3. Osteoarthritis. 4. Coronary artery disease with 3-vessel bypass in 2004 and subsequent stenting in 2008. 5. Descending aortic dissection with stent placement in 2018. 6. Right total hip replacement. 7. Left total knee replacement. 8. Cholecystectomy. 9. Appendectomy. HOME MEDICATIONS: Include: 1. Amlodipine 10 mg nightly. 2. Carvedilol 25 mg b.i.d. 3. Clopidogrel 75 mg daily. 4. Mirtazapine 15 mg nightly. 5. Pregabalin 150 mg p.o. b.i.d. 6. Effexor 75 mg daily. ALLERGIES: NO KNOWN DRUG ALLERGIES. INTOLERANT OF ASPIRIN DUE TO EXCESSIVE BLEEDING. FAMILY HISTORY: Positive for CAD. SOCIAL HISTORY: Denies tobacco or drug use. Positive for occasional alcohol consumption. REVIEW OF SYSTEMS: A 12-point review of systems is unremarkable except that listed above in HPI. The patient denies any heart racing, palpitations, chest pain or pressure, stroke, or stroke-like symptoms. Positive for dizziness, weakness, and fatigue. Dizziness worse with standing or any type of exertion. OBJECTIVE: VITAL SIGNS: Temperature 97.6, pulse 57, blood pressure 138/75, respirations 16, and oxygen is 95% on room air. GENERAL: The patient is alert and oriented. Speech is clear. Affect is appropriate. He is in no apparent distress at the time of the exam. HEENT: Normocephalic and atraumatic. Sclerae anicteric. EOMs are intact. Oral mucosa is moist and pink with adequate dentition. There is no lymphadenopathy. Trachea is midline. LUNGS: Clear to auscultation bilaterally. Slightly diminished at the bases. Respirations are even and unlabored with good bilateral excursion. HEART: Rate is regularly regular, but slow, with a crisp S1 and S2. PMI is nondisplaced. ABDOMEN: Soft and nontender without palpable masses. EXTREMITIES: Warm and dry to touch without clubbing, cyanosis, or edema. NEUROLOGIC: Grossly intact. No lateralized findings are seen today. Gait was not assessed. DATABASE: Telemetry and EKG show sinus bradycardia with a left bundle-branch block, measuring 154 milliseconds. Also first-degree AV block is seen. OH interval is 272 milliseconds. Echocardiogram on 09/20/2019, EF is 45% to 50%. Left atrium is moderately dilated. LABORATORY DATA: Hematology was unremarkable. WBC 7.1 and platelet count 208. Chemistry: Potassium 4.1 and creatinine 0.85. TSH 1.06. Troponins were negative upon admission. IMPRESSION: 1. Syncope of unknown etiology with positive orthostasis, symptomatic bradycardia with low-dose Coreg. 2. Left bundle-branch block. 3. First-degree atrioventricular block. 4. Chronic fatigue. 5. Hypertension. 6. Cardiomyopathy with a mildly reduced ejection fraction. PLAN AND RECOMMENDATIONS: Mr. Hester is a very pleasant 79-year-old gentleman who presents with syncope and collapse of unknown etiology. Neurologic evaluation has not revealed any decisive cause for his event. He does have documented orthostasis and also symptomatic bradycardia with advancing conduction disease with documented first-degree AV block and left bundle-branch block. He also has a mild reduction in his ejection fraction. I discussed the potential benefit for pacing therapy in light of his conduction disease and his ventricular dyssynchrony. He would likely benefit from initially an electrophysiology study to test if he is inducible for ventricular arrhythmias that could be a possible cause for his passing out episode. If able to induce ventricular tachycardia, I would recommend a Bi-V ICD. If not inducible for ventricular tachycardia, I feel he would benefit from a biventricular pacemaker alone to restore resynchronization of ventricles and also address his underlying conduction disease. His echocardiogram did not reveal any significant valvular disease that could be a contributing factor to this syncope and collapse. Pacing therapy would also correct his underlying bradycardia and allow for treatment of his cardiomyopathy with beta-john therapy. Thank you for allowing me to participate in the care of this patient. We discussed the risks, benefits, and alternatives to EP study and ICD versus pacemaker implant. He voices understanding and wishes to proceed. This will be conducted in the near future before discharge. Job ID: [id number]
[2019-09-25] MEDS: Venlafaxine HCl XR 75 MG CAP PO SCH (09:26)
[2019-09-25] MEDS: Aspirin 81 mg Enteric Coated Tablet PO SCH (09:33)
[2019-09-25] MEDS: Clopidogrel Bisulfate 75 MG TAB PO SCH (09:33)
[2019-09-25] MEDS: Enoxaparin Sodium 40 MG/0.4 ML SYRINGE SC SCH (09:34)
--- NOTE | 2019-09-25 14:25 | PDOC.EP ---
- Subjective Date: 09/25/19 Time: 09:00 Interval History: Am seeing Mr. Hicks as a follow-up for symptomatic bradycardia, left bundle branch block and cardiomyopathy. Today he is feeling fair and Continues to report symptoms of fatigue and weakness with his bradycardia. He is scheduled for an electrophysiology study given his recent syncope and collapse of unknown etiology. Following EP study he will either have a pacemaker or ICD implanted pending the results of the study. - Review of Systems Constitutional: denies: chills, fever, malaise, sweats, weakness Respiratory: denies: cough, dry, hemoptysis, pleuritic pain, shortness of breath , SOB with excertion, sputum, wheezing Cardiology: reports: light headedness. denies: chest pain, edema, heart racing , orthopnea, paroxysmal noc. dyspnea, palpitations, passing out, pleuritic pain , pressure, swelling Gastrointestinal: denies: abdominal pain, constipation, diarrhea, hematochezia, melena, nausea, vomitting - Objective Allergies/Adverse Reactions: Allergies Allergy/AdvReac Type Severity Reaction Status Date / Time No Known Allergies Allergy Unverified 09/19/19 14:37 Current Medications Acetaminophen (Tylenol) 650 mg PO Q4H PRN PRN Reason: Headache/Fever/Mild Pain (1-3) Hydrocodone Bitart/Acetaminophen ([place] 10/325) 1 tab PO Q4H PRN PRN Reason: CHRONIC PAIN Last Admin: 09/25/19 14:05 Dose: 1 tab Aspirin (Ecotrin) 81 mg PO DAILY [facility] Last Admin: 09/25/19 09:33 Dose: 81 mg Atorvastatin Calcium (Lipitor) 40 mg PO [facility] Last Admin: 09/24/19 21:03 Dose: 40 mg Clopidogrel Bisulfate (Plavix) 75 mg PO DAILY [facility] Last Admin: 09/25/19 09:33 Dose: 75 mg Enoxaparin Sodium (Lovenox) 40 mg SC 0900 [facility] Last Admin: 09/25/19 09:34 Dose: 40 mg Mirtazapine (Remeron) 15 mg PO HS [facility] Last Admin: 09/24/19 21:02 Dose: 15 mg Pregabalin (Lyrica) 150 mg PO BIDPRN PRN PRN Reason: Pain Last Admin: 09/21/19 11:52 Dose: 150 mg Sodium Chloride (Flush - Normal Saline) 10 ml IVF Q12HR [facility] Last Admin: 09/25/19 09:41 Dose: 10 ml Sodium Chloride (Flush - Normal Saline) 10 ml IVF PRN PRN PRN Reason: Saline Flush Venlafaxine HCl (Effexor Xr) 75 mg PO DAILY [facility] Last Admin: 09/25/19 09:26 Dose: 75 mg Vital Signs & Weight: Vital Signs Temp Pulse Resp BP Pulse Ox 09/25/19 11:49 97.6 F 75 15 115/70 96 09/25/19 08:00 97.5 F L 71 10 L 135/71 96 09/25/19 04:00 97.5 F L 62 16 139/75 95 Admit Weight 199 lb 11.2 oz Weight 199 lb 11.2 oz I/O: I/O 09/24/19 09/25/19 09/26/19 06:59 06:59 06:59 Intake Total 600 397 Balance 600 397 - Physical Exam General: alert & oriented x3, appears well, no apparent distress, speech clear, affect appropriate HEENT: mucus membranes moist, normocephaly Neck: supple neck, midline trachea, no JVD/HJR, no masses, no bruit, no lymphadenopathy, no thromegaly Cardiology: regular rhythm, PMI nondisplaced, bradycardia. negative: regular rate Lungs: clear to auscultation, normal breath sounds, no wheeze, rales, rhonchi Neurology: cranial nerve 2-12 intact, grossly intact, no lateralizing findings - Labs Result Diagrams: 09/23/19 04:41 09/25/19 05:07 - EKG Interpretation EKG Method: Telemetry EKG shows: Sinus bradycardia (LBBB) - Assessment/Plan Assessment/Plan: 1. syncope and collapse of unknown etiology 2. Left bundle-branch block 3. 1st degree AV block 4. hypertension 5. 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 symptomatic bradycardia There is an indication for permanent pacing given his symptoms and also the need for beta-john therapy for his cardiomyopathy which would only further provoke his bradycardia and symptoms. In light of his recent syncope and collapse and mildly reduced ejection fraction I have him scheduled for an electrophysiology study to check for inducible ventricular arrhythmias. If inducible for ventricular arrhythmias, I will proceed with a biventricular ICD implant. If not inducible, and biventricular pacemaker will suffice. PRINTING AGENT pacing will correct his ventricular dyssynchrony from his left bundle branch block. We discussed the risks benefits and alternatives associated with electrophysiology study including bleeding hematoma at the groin site abnormal heart rhythms pericardial effusion and tamponade and arrhythmias. Also risks associated with pacemaker /ICD implant include pain bruising swelling and infection at the implant site, pneumothorax, pericardial effusion, lead dislodgement, device malfunction and/or recall. he voices understanding and is willing to proceed as scheduled tomorrow. He will be NPO after midnight. I will hold his aspirin Plavix and Lovenox in the morning in anticipation of a device implant.
[2019-09-25 18:00] LABS: #Eosinphils 0.2 thou/uL (0.0-0.7); #Lymphocytes 2.6 thou/uL (1.20-3.40); #Monocytes 0.8 thou/uL (0.11-0.59); #Neutrophils 4.4 thou/uL (1.40-6.50); %Basophils 0.4 % (0.0-1.0); %Eosinophils 2.6 % (0.0-10.0); %Lymphocytes 32.2 % (21.0-51.0); %Neutrophils 54.8 % (42.0-75.0); Hemoglobin 12.9 g/dL (14.0-18.0); Mean Corpuscular HGB CONC 32.7 g/dL (32.0-36.0); Mean Corpuscular Hemoglobin 30.2 pg (27.0-31.0); Mean Corpuscular Volume 92.3 fL (78.0-98.0); Mean Platelet Volume 7.9 fL (7.4-10.4); Platelet Count 247 thou/uL (130-400); RBC Distribution Width 12.7 % (11.5-14.5); Red Blood Cell (RBC) Count 4.26 mill/uL (4.70-6.10); White Blood Cell (WBC) Count 8.1 thou/uL (4.8-10.8)
[2019-09-25 18:19] LABS: Anion Gap 14 mmol/L (10-20); BUN (Urea Nitrogen) 27 mg/dL (8.4-25.7); Calc. Creatinine Clearance 78 mL/min (70-130); Calcium 9.8 mg/dL (7.8-10.44); Carbon Dioxide 29 mmol/L (23-31); Chloride 100 mmol/L (98-107); Estimated GFR-MDRD 74; Glucose 111 mg/dL (83-110); Potassium 4.2 mmol/L (3.5-5.1); Sodium 139 mmol/L (136-145)
[2019-09-25] MEDS: Mirtazapine 15 MG TAB PO SCH (20:19)
[2019-09-25] MEDS: Atorvastatin Calcium 40 MG TAB PO SCH (20:19)
[2019-09-26] MEDS: HYDROcodone/Acetaminophen 10/325 mg Tablet PO PRN ×2 (03:04→09:11)
[2019-09-26 05:08] LABS: Anion Gap 14 mmol/L (10-20); BUN (Urea Nitrogen) 26 mg/dL (8.4-25.7); Calc. Creatinine Clearance 85 mL/min (70-130); Calcium 9.4 mg/dL (7.8-10.44); Carbon Dioxide 27 mmol/L (23-31); Chloride 102 mmol/L (98-107); Estimated GFR-MDRD 82; Glucose 98 mg/dL (83-110); Potassium 4.1 mmol/L (3.5-5.1); Sodium 139 mmol/L (136-145)
[2019-09-26] MEDS ORDERED: Iopamidol 370 76% 50 ML VIAL FS ONE (09:01)
[2019-09-26] MEDS: Venlafaxine HCl XR 75 MG CAP PO SCH (09:11)
[2019-09-26] MEDS ORDERED: PROPOFOL 200 MG/20 ML VIAL ONE (09:20)
[2019-09-26] MEDS ORDERED: Lidocaine 1% PF 5 ML VIAL ONE (09:20)
[2019-09-26] MEDS ORDERED: Ondansetron PF 4 MG/2 ML Vial ONE (09:20)
[2019-09-26] MEDS ORDERED: Fentanyl 100 MCG/2 ML VIAL ONE ×3 (10:56→15:24)
[2019-09-26] MEDS ORDERED: PROPOFOL 20 ML ONE ×3 (10:56→13:37)
[2019-09-26] MEDS ORDERED: Famotidine/PF 20 mg/2ml Vial ONE (10:56)
[2019-09-26] MEDS ORDERED: Isoproterenol 0.2 MG/1 ML AMP ONE ×2 (12:15→12:16)
[2019-09-26] MEDS ORDERED: Gentamicin 80 MG/2 ML VIAL ONE (12:41)
[2019-09-26] MEDS ORDERED: PROPOFOL 40 ML ONE (12:47)
[2019-09-26] MEDS ORDERED: Promethazine HCl 25 MG/ML VIAL SLOW IVP PRN (14:17)
[2019-09-26] MEDS ORDERED: Ondansetron HCl/PF 4 MG/2 ML Vial IVP PRN (14:17)
[2019-09-26] MEDS ORDERED: Acetaminophen/Codeine 30-300mg Tablet PO PRN (14:45)
--- NOTE | 2019-09-26 15:07 | RAD ---
Exam: Chest one view HISTORY:Status post pacemaker placement. Comparison: 09/19/2019 FINDINGS: Pacemaker: Interval placement of a left-sided transvenous pacemaker with lead positioned over the rig ht atrium, right ventricle and coronary sinus. Cardiac silhouette:Stable enlarged cardiac silhouette. Stable stent projecting over the aortic knob a nd descending thoracic aorta. Stable sternotomy wires. Aorta: Stable stent as above Pulmonary vessels: Normal Costophrenic angles: Clear LUNGS: Chronic lung parenchymal changes. Pneumothorax: None Osseous abnormalities: Severe degenerative changes involving both shoulders IMPRESSION: 1. Interval placement of a left-sided transvenous pacemaker with lead position as detailed above. No pneumothorax
[2019-09-26] MEDS: Acetaminophen/Codeine 30-300mg Tablet PO PRN (17:02)
--- NOTE | 2019-09-26 19:51 | OP ---
DATE OF PROCEDURE: 09/26/2019 PROCEDURE PERFORMED: Electrophysiology study. REASON FOR PROCEDURE: Mr. Hester is an 79-year-old man with history of hypertension, coronary artery disease post bypass surgery in 2004. 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 He has chronic fatigue , but was admitted to the hospital with syncopal spell. He has bradycardia at baseline on presentation. He is noted to have developed left bundle branch block since October 2018 and now also first-degree AV block present. DESCRIPTION OF PROCEDURE: The patient received deep sedation by anesthesia specialist. After adequate level of sedation achieved, the right femoral venous area was prepped, draped, and anesthetized using subcutaneous lidocaine. Under ultrasound guidance, the right femoral vein was cannulated x1. A 6-[place] short sheath was introduced through which a octapolar catheter was advanced to the right atrium, right ventricle, His bundle, and CS position. Pacing, mapping, and recording were performed at each location including pacing the left atrium via the CS position. Following findings were noted. Baseline rhythm was sinus rhythm with RR interval of 855 milliseconds, TX 247, QRS 150 milliseconds, QT 470 milliseconds, AH 155 milliseconds, HV 78 milliseconds. Ventricular pacing revealed no VA conduction. Antegrade Wenckebach cycle length was approximately 500 milliseconds during atrial fibrillation. Sinus node recovery time was attempted but the patient had atrial fibrillation with burst atrial pacing. Following that, the catheter was then advanced to the right ventricle and ventricular extrastimuli testing was performed. Ventricular ERP was initially measured at 600/240 milliseconds. Additional PVCs were applied up to 3 ventricular extrastimuli, decremented to the refractory period. This was repeated on 400-millisecond drive train, docked to 3 ventricular extrastimuli, and also another 400-millisecond drive train was repeated during Isuprel administration. No ventricular tachycardia induced with these maneuvers. At this point, decision was made to proceed with a biventricular pacemaker, evidence of tachy-estee syndrome and also left bundle-branch block and cardiomyopathy. Please see separate report. CONCLUSION: 1. Abnormal conduction system with baseline left bundle-branch block and first-degree AV block with prolonged HV at 78 milliseconds. 2. Inducible atrial fibrillation with atrial pacing, sustained, but self terminating.. 3. No ventricular tachycardia induced with up to 3 ventricular extrastimuli, on and off Isuprel. PLAN: Proceed with Bi-V pacemaker implant. resume BB afterwards. Monitor for clinical atrial fib. Job ID: [id number] MTDD
[2019-09-26] MEDS ORDERED: HYDROcodone/Acetaminophen 10/325 mg Tablet PO SCH (21:15)
[2019-09-26] MEDS: Mirtazapine 15 MG TAB PO SCH (21:26)
[2019-09-26] MEDS: Atorvastatin Calcium 40 MG TAB PO SCH (21:26)
[2019-09-26] MEDS: ceFAZolin 1 GM/D5W 1 GM in Premix Bag 1 BAG IVPB SCH (21:33)
[2019-09-27] MEDS: Acetaminophen/Codeine 30-300mg Tablet PO PRN ×2 (02:50→09:05)
[2019-09-27 04:48] LABS: #Eosinphils 0.2 thou/uL (0.0-0.7); #Lymphocytes 1.9 thou/uL (1.20-3.40); #Monocytes 1.1 thou/uL (0.11-0.59); #Neutrophils 8.5 thou/uL (1.40-6.50); %Basophils 0.1 % (0.0-1.0); %Eosinophils 1.8 % (0.0-10.0); %Lymphocytes 16.4 % (21.0-51.0); %Monocytes 9.6 % (0.0-10.0); %Neutrophils 72.2 % (42.0-75.0); Hemoglobin 11.9 g/dL (14.0-18.0); Mean Corpuscular Hemoglobin 30.6 pg (27.0-31.0); Mean Corpuscular Volume 92.8 fL (78.0-98.0); Mean Platelet Volume 8.6 fL (7.4-10.4); Platelet Count 216 thou/uL (130-400); RBC Distribution Width 12.9 % (11.5-14.5); White Blood Cell (WBC) Count 11.7 thou/uL (4.8-10.8)
[2019-09-27] MEDS: ceFAZolin 1 GM/D5W 1 GM in Premix Bag 1 BAG IVPB SCH (04:52)
[2019-09-27 05:13] LABS: Anion Gap 14 mmol/L (10-20); BUN (Urea Nitrogen) 26 mg/dL (8.4-25.7); Calc. Creatinine Clearance 80 mL/min (70-130); Carbon Dioxide 25 mmol/L (23-31); Chloride 103 mmol/L (98-107); Estimated GFR-MDRD 77; Glucose 102 mg/dL (83-110); Magnesium 2.2 mg/dL (1.6-2.6); Potassium 4.2 mmol/L (3.5-5.1); Sodium 138 mmol/L (136-145)
[2019-09-27] MEDS: Enoxaparin Sodium 40 MG/0.4 ML SYRINGE SC SCH (09:02)
[2019-09-27] MEDS: Aspirin 81 mg Enteric Coated Tablet PO SCH (09:03)
[2019-09-27] MEDS: Clopidogrel Bisulfate 75 MG TAB PO SCH (09:04)
[2019-09-27] MEDS: Venlafaxine HCl XR 75 MG CAP PO SCH (09:04)
[2019-09-27] MEDS ORDERED: Sodium Chloride 0.9% 500 ML IV SCH (10:15)
[2019-09-27 10:50] LABS: Hemoglobin 11.4 g/dL (14.0-18.0)
[2019-09-27] MEDS: HYDROcodone/Acetaminophen 10/325 mg Tablet PO PRN ×2 (11:50→16:12)
--- NOTE | 2019-09-27 12:39 | PDOC.HOSPP ---
- Subjective Encounter Date: 09/25/19 Encounter Time: 10:30 Subjective: pt up in bed no complains - Objective Vital Signs & Weight: Vital Signs (12 hours) Temp Pulse Resp BP BP BP BP 09/27/19 11:34 98.0 F 80 20 109/67 09/27/19 09:22 90/51 L 84/54 L 99/55 L 09/27/19 07:20 98.4 F 88 20 90/60 09/27/19 04:00 98.0 F 76 16 95/57 L Pulse Ox 09/27/19 11:34 95 09/27/19 09:22 09/27/19 07:20 94 L 09/27/19 04:00 93 L Weight Admit Weight 199 lb 11.2 oz Weight 199 lb 11.2 oz I&O: 09/26/19 09/27/19 09/28/19 06:59 06:59 06:59 Intake Total 804 337 597 Output Total 0 400 Balance 804 337 197 Result Diagrams: 09/27/19 10:38 09/27/19 04:30 Hospitalist ROS - Review of Systems Cardiovascular: denies: chest pain, palpitations, orthopnea, paroxysmal noc. dyspnea, edema, light headedness, other Gastrointestinal: denies: nausea, vomiting, abdominal pain, diarrhea, constipation, melena, hematochezia, other Genitourinary: denies: dysuria, frequency, incontinence, hematuria, retention, other - Medication Medications: Active Medications Generic Name Dose Route Start Last Admin Trade Name Freq PRN Reason Stop Dose Admin Acetaminophen/Codeine Phosphate 2 tab 09/26/19 14:45 09/27/19 09:05 Tylenol #3 PO 2 tab Q4H PRN Administration Moderate Pain (4-6) Hydrocodone Bitart/Acetaminophen 1 tab 09/27/19 09:41 09/27/19 11:50 [place] 10/325 PO 1 tab Q4H PRN Administration Breakthrough Pain Aspirin 81 mg 09/20/19 09:00 09/27/19 09:03 Ecotrin PO 81 mg DAILY JANAE Administration Atorvastatin Calcium 40 mg 09/20/19 21:00 09/26/19 21:26 Lipitor PO 40 mg HS JANAE Administration Clopidogrel Bisulfate 75 mg 09/20/19 09:00 09/27/19 09:04 Plavix PO 75 mg DAILY JANAE Administration Enoxaparin Sodium 40 mg 09/20/19 09:00 09/27/19 09:02 Lovenox SC Not Given 0900 [facility] Mirtazapine 15 mg 09/19/19 21:00 09/26/19 21:26 Remeron PO 15 mg HS JANAE Administration Pregabalin 150 mg 09/19/19 21:00 09/21/19 11:52 Lyrica PO 150 mg BIDPRN PRN Administration Pain Sodium Chloride 10 ml 09/26/19 21:00 09/27/19 09:04 Flush - Normal Saline IVF 10 ml Q12HR AJNAE Administration Venlafaxine HCl 75 mg 09/20/19 09:00 09/27/19 09:04 Effexor Xr PO 75 mg DAILY JANAE Administration - Exam Neck: negative: supple, symmetric, no JVD, no thyromegaly, no lymphadenopathy, no carotid bruit, JVD Heart: negative: RRR, no murmur, no gallops, no rubs, normal peripheral pulses, irregular, diminshed peripheral pulses, murmur present, II/IV, III/IV Respiratory: negative: CTAB, no wheezes, no rales, no ronchi, normal chest expansion, no tachypnea, normal percussion, rales, rhonchi, tachypneic, wheezes Gastrointestinal: negative: soft, non-tender, non-distended, normal bowel sounds , no palpable masses, no hepatomegaly, no splenomegaly, no bruit, no guarding, no rigidity, tender to palpation, distended, diminished bowl sounds, voluntary guarding Hosp A/P (1) CAD (coronary artery disease) Code(s): I25.10 - ATHSCL HEART DISEASE OF [place] CORONARY ARTERY W/O ANG PCTRS Status: Acute (2) Hyperlipidemia Code(s): E78.5 - HYPERLIPIDEMIA, UNSPECIFIED Status: Acute (3) Hypertension Code(s): I10 - ESSENTIAL (PRIMARY) HYPERTENSION Status: Acute (4) Syncope Code(s): R55 - SYNCOPE AND COLLAPSE Status: Acute - Plan pt states that he has lost 10lbs in the past 3 months. He states he has no appetite but has been eating well her per pt. He has been given ns bolus and continues to be orthostatic. will stop his lisinopril and decrease his coreg to 3.125mg bid. He is still bradycardiac. He does not feel dizzy when he gets up. He does not recall what happened or had no prodromal symptoms prior to his syncopal episode. i will get a cortisol level in am. His ekg indicated LBBB will get prior ekg. Ef is 40-45%. Blood pressure in both arm are similar no different. eeg negative, ct brain negative. pt has not been on any new meds according to him. prior to this even he went fishing with his grandchildren but was not out in the sun was in shade. Per pt he thinks he was drinking water but not too much. 09/22 cortisol is normal. pt still has bradycardia. cardio stopped his bb. his bp is improved. orthostatic is negative today. 09/23 pt will be evaluated by ep. his bp and bradycardia has improved. will await ep recommendation. 09/24 pt up in bed no complains awaiting recommendation by ep.
--- NOTE | 2019-09-27 12:42 | PDOC.HOSPP ---
- Subjective Encounter Date: 09/26/19 Encounter Time: 11:15 Subjective: pt up in bed no complains - Objective Vital Signs & Weight: Vital Signs (12 hours) Temp Pulse Resp BP BP BP BP 09/27/19 11:34 98.0 F 80 20 109/67 09/27/19 09:22 90/51 L 84/54 L 99/55 L 09/27/19 07:20 98.4 F 88 20 90/60 09/27/19 04:00 98.0 F 76 16 95/57 L Pulse Ox 09/27/19 11:34 95 09/27/19 09:22 09/27/19 07:20 94 L 09/27/19 04:00 93 L Weight Admit Weight 199 lb 11.2 oz Weight 199 lb 11.2 oz I&O: 09/26/19 09/27/19 09/28/19 06:59 06:59 06:59 Intake Total 804 337 597 Output Total 0 400 Balance 804 337 197 Result Diagrams: 09/27/19 10:38 09/27/19 04:30 Hospitalist ROS - Review of Systems Cardiovascular: denies: chest pain, palpitations, orthopnea, paroxysmal noc. dyspnea, edema, light headedness, other Gastrointestinal: denies: nausea, vomiting, abdominal pain, diarrhea, constipation, melena, hematochezia, other Genitourinary: denies: dysuria, frequency, incontinence, hematuria, retention, other - Medication Medications: Active Medications Generic Name Dose Route Start Last Admin Trade Name Freq PRN Reason Stop Dose Admin Acetaminophen/Codeine Phosphate 2 tab 09/26/19 14:45 09/27/19 09:05 Tylenol #3 PO 2 tab Q4H PRN Administration Moderate Pain (4-6) Hydrocodone Bitart/Acetaminophen 1 tab 09/27/19 09:41 09/27/19 11:50 [place] 10/325 PO 1 tab Q4H PRN Administration Breakthrough Pain Aspirin 81 mg 09/20/19 09:00 09/27/19 09:03 Ecotrin PO 81 mg DAILY JANAE Administration Atorvastatin Calcium 40 mg 09/20/19 21:00 09/26/19 21:26 Lipitor PO 40 mg HS JANAE Administration Clopidogrel Bisulfate 75 mg 09/20/19 09:00 09/27/19 09:04 Plavix PO 75 mg DAILY JANAE Administration Enoxaparin Sodium 40 mg 09/20/19 09:00 09/27/19 09:02 Lovenox SC Not Given 0900 [facility] Mirtazapine 15 mg 09/19/19 21:00 09/26/19 21:26 Remeron PO 15 mg HS JANAE Administration Pregabalin 150 mg 09/19/19 21:00 09/21/19 11:52 Lyrica PO 150 mg BIDPRN PRN Administration Pain Sodium Chloride 10 ml 09/26/19 21:00 09/27/19 09:04 Flush - Normal Saline IVF 10 ml Q12HR JANAE Administration Venlafaxine HCl 75 mg 09/20/19 09:00 09/27/19 09:04 Effexor Xr PO 75 mg DAILY JANAE Administration - Exam Neck: negative: supple, symmetric, no JVD, no thyromegaly, no lymphadenopathy, no carotid bruit, JVD Heart: negative: RRR, no murmur, no gallops, no rubs, normal peripheral pulses, irregular, diminshed peripheral pulses, murmur present, II/IV, III/IV Respiratory: negative: CTAB, no wheezes, no rales, no ronchi, normal chest expansion, no tachypnea, normal percussion, rales, rhonchi, tachypneic, wheezes Gastrointestinal: negative: soft, non-tender, non-distended, normal bowel sounds , no palpable masses, no hepatomegaly, no splenomegaly, no bruit, no guarding, no rigidity, tender to palpation, distended, diminished bowl sounds, voluntary guarding Hosp A/P (1) CAD (coronary artery disease) Code(s): I25.10 - ATHSCL HEART DISEASE OF [place] CORONARY ARTERY W/O ANG PCTRS Status: Acute (2) Hyperlipidemia Code(s): E78.5 - HYPERLIPIDEMIA, UNSPECIFIED Status: Acute (3) Hypertension Code(s): I10 - ESSENTIAL (PRIMARY) HYPERTENSION Status: Acute (4) Syncope Code(s): R55 - SYNCOPE AND COLLAPSE Status: Acute - Plan pt states that he has lost 10lbs in the past 3 months. He states he has no appetite but has been eating well her per pt. He has been given ns bolus and continues to be orthostatic. will stop his lisinopril and decrease his coreg to 3.125mg bid. He is still bradycardiac. He does not feel dizzy when he gets up. He does not recall what happened or had no prodromal symptoms prior to his syncopal episode. i will get a cortisol level in am. His ekg indicated LBBB will get prior ekg. Ef is 40-45%. Blood pressure in both arm are similar no different. eeg negative, ct brain negative. pt has not been on any new meds according to him. prior to this even he went fishing with his grandchildren but was not out in the sun was in shade. Per pt he thinks he was drinking water but not too much. 09/22 cortisol is normal. pt still has bradycardia. cardio stopped his bb. his bp is improved. orthostatic is negative today. 09/23 pt will be evaluated by ep. his bp and bradycardia has improved. will await ep recommendation. 09/24 pt up in bed no complains awaiting recommendation by ep. 09/25 pt up in bed will be going in for pacemaker placement
--- NOTE | 2019-09-27 12:47 | PDOC.HOSPP ---
- Subjective Encounter Date: 09/27/19 Encounter Time: 10:00 Subjective: pt up in bed complains of pain to his left chest wall area - Objective Vital Signs & Weight: Vital Signs (12 hours) Temp Pulse Resp BP BP BP BP 09/27/19 11:34 98.0 F 80 20 109/67 09/27/19 09:22 90/51 L 84/54 L 99/55 L 09/27/19 07:20 98.4 F 88 20 90/60 09/27/19 04:00 98.0 F 76 16 95/57 L Pulse Ox 09/27/19 11:34 95 09/27/19 09:22 09/27/19 07:20 94 L 09/27/19 04:00 93 L Weight Admit Weight 199 lb 11.2 oz Weight 199 lb 11.2 oz I&O: 09/26/19 09/27/19 09/28/19 06:59 06:59 06:59 Intake Total 804 337 597 Output Total 0 400 Balance 804 337 197 Result Diagrams: 09/27/19 10:38 09/27/19 04:30 Hospitalist ROS - Review of Systems Cardiovascular: reports: other (pt has pain to his left chest wall area) Gastrointestinal: denies: nausea, vomiting, abdominal pain, diarrhea, constipation, melena, hematochezia, other Genitourinary: denies: dysuria, frequency, incontinence, hematuria, retention, other - Medication Medications: Active Medications Generic Name Dose Route Start Last Admin Trade Name Freq PRN Reason Stop Dose Admin Acetaminophen/Codeine Phosphate 2 tab 09/26/19 14:45 09/27/19 09:05 Tylenol #3 PO 2 tab Q4H PRN Administration Moderate Pain (4-6) Hydrocodone Bitart/Acetaminophen 1 tab 09/27/19 09:41 09/27/19 11:50 [place] 10/325 PO 1 tab Q4H PRN Administration Breakthrough Pain Aspirin 81 mg 09/20/19 09:00 09/27/19 09:03 Ecotrin PO 81 mg DAILY JANAE Administration Atorvastatin Calcium 40 mg 09/20/19 21:00 09/26/19 21:26 Lipitor PO 40 mg HS JANAE Administration Clopidogrel Bisulfate 75 mg 09/20/19 09:00 09/27/19 09:04 Plavix PO 75 mg DAILY JANAE Administration Enoxaparin Sodium 40 mg 04/30/20 09:00 09/27/19 09:02 Lovenox SC Not Given 0900 JANAE Mirtazapine 15 mg 09/19/19 21:00 09/26/19 21:26 Remeron PO 15 mg HS JANAE Administration Pregabalin 150 mg 09/19/19 21:00 09/21/19 11:52 Lyrica PO 150 mg BIDPRN PRN Administration Pain Sodium Chloride 10 ml 09/26/19 21:00 09/27/19 09:04 Flush - Normal Saline IVF 10 ml Q12HR JANAE Administration Venlafaxine HCl 75 mg 09/20/19 09:00 09/27/19 09:04 Effexor Xr PO 75 mg DAILY JANAE Administration - Exam General - other findings: left chest wall area hematoma Neck: negative: supple, symmetric, no JVD, no thyromegaly, no lymphadenopathy, no carotid bruit, JVD Heart: negative: RRR, no murmur, no gallops, no rubs, normal peripheral pulses, irregular, diminshed peripheral pulses, murmur present, II/IV, III/IV Respiratory: negative: CTAB, no wheezes, no rales, no ronchi, normal chest expansion, no tachypnea, normal percussion, rales, rhonchi, tachypneic, wheezes Gastrointestinal: negative: soft, non-tender, non-distended, normal bowel sounds , no palpable masses, no hepatomegaly, no splenomegaly, no bruit, no guarding, no rigidity, tender to palpation, distended, diminished bowl sounds, voluntary guarding Hosp A/P (1) CAD (coronary artery disease) Code(s): I25.10 - ATHSCL HEART DISEASE OF [place] CORONARY ARTERY W/O ANG PCTRS Status: Acute (2) Hyperlipidemia Code(s): E78.5 - HYPERLIPIDEMIA, UNSPECIFIED Status: Acute (3) Hypertension Code(s): I10 - ESSENTIAL (PRIMARY) HYPERTENSION Status: Acute (4) Syncope Code(s): R55 - SYNCOPE AND COLLAPSE Status: Acute - Plan pt states that he has lost 10lbs in the past 3 months. He states he has no appetite but has been eating well her per pt. He has been given ns bolus and continues to be orthostatic. will stop his lisinopril and decrease his coreg to 3.125mg bid. He is still bradycardiac. He does not feel dizzy when he gets up. He does not recall what happened or had no prodromal symptoms prior to his syncopal episode. i will get a cortisol level in am. His ekg indicated LBBB will get prior ekg. Ef is 40-45%. Blood pressure in both arm are similar no different. eeg negative, ct brain negative. pt has not been on any new meds according to him. prior to this even he went fishing with his grandchildren but was not out in the sun was in shade. Per pt he thinks he was drinking water but not too much. 09/22 cortisol is normal. pt still has bradycardia. cardio stopped his bb. his bp is improved. orthostatic is negative today. 09/23 pt will be evaluated by ep. his bp and bradycardia has improved. will await ep recommendation. 09/24 pt up in bed no complains awaiting recommendation by ep. 09/25 pt up in bed will be going in for pacemaker placement 09/26 will check hh, pt's bp low. will give pt ns bolus. pain not controlled will put pt on norco for better pain control.
--- NOTE | 2019-09-27 14:08 | PDOC.EP ---
- Subjective Date: 09/27/19 Time: 08:00 Interval History: Mr. Hester is feeling fair today but is reporting pain at his pacemaker implant site. He has been taking T3 with little relief. - Review of Systems Constitutional: denies: chills, fever, malaise, sweats, weakness Respiratory: denies: cough, hemoptysis, shortness of breath, sputum, wheezing Cardiology: denies: chest pain, edema, heart racing, light headedness, palpitations, passing out Gastrointestinal: denies: abdominal pain, constipation, nausea, vomitting - Objective Allergies/Adverse Reactions: Allergies Allergy/AdvReac Type Severity Reaction Status Date / Time No Known Allergies Allergy Unverified 09/19/19 14:37 Current Medications Acetaminophen/Codeine Phosphate (Tylenol #3) 1 tab PO Q4H PRN PRN Reason: Mild Pain (1-3) Acetaminophen/Codeine Phosphate (Tylenol #3) 2 tab PO Q4H PRN PRN Reason: Moderate Pain (4-6) Last Admin: 09/27/19 09:05 Dose: 2 tab Hydrocodone Bitart/Acetaminophen ([place] 10/325) 1 tab PO Q4H PRN PRN Reason: Breakthrough Pain Last Admin: 09/27/19 11:50 Dose: 1 tab Hydrocodone Bitart/Acetaminophen ([place] 5/325) 1 tab PO Q4H PRN PRN Reason: Severe Pain (7-10) Aspirin (Ecotrin) 81 mg PO DAILY [facility] Last Admin: 09/27/19 09:03 Dose: 81 mg Atorvastatin Calcium (Lipitor) 40 mg PO HS [facility] Last Admin: 09/26/19 21:26 Dose: 40 mg Cephalexin (Keflex) 500 mg PO Q8HR [facility] Stop: 10/04/19 06:01 Clopidogrel Bisulfate (Plavix) 75 mg PO DAILY [facility] Last Admin: 09/27/19 09:04 Dose: 75 mg Enoxaparin Sodium (Lovenox) 40 mg SC 0900 [facility] Last Admin: 09/27/19 09:02 Dose: Not Given Mirtazapine (Remeron) 15 mg PO HS [facility] Last Admin: 09/26/19 21:26 Dose: 15 mg Pregabalin (Lyrica) 150 mg PO BIDPRN PRN PRN Reason: Pain Last Admin: 09/21/19 11:52 Dose: 150 mg Sodium Chloride (Flush - Normal Saline) 10 ml IVF Q12HR [facility] Last Admin: 09/27/19 09:04 Dose: 10 ml Sodium Chloride (Flush - Normal Saline) 10 ml IVF PRN PRN PRN Reason: Saline Flush Venlafaxine HCl (Effexor Xr) 75 mg PO DAILY [facility] Last Admin: 09/27/19 09:04 Dose: 75 mg Vital Signs & Weight: Vital Signs Temp Pulse Resp BP BP BP BP 09/27/19 11:34 98.0 F 80 20 109/67 09/27/19 09:22 90/51 L 84/54 L 99/55 L 09/27/19 07:20 98.4 F 88 20 90/60 09/27/19 04:00 98.0 F 76 16 95/57 L Pulse Ox 09/27/19 11:34 95 09/27/19 09:22 09/27/19 07:20 94 L 09/27/19 04:00 93 L Admit Weight 199 lb 11.2 oz Weight 199 lb 11.2 oz I/O: I/O 09/26/19 09/27/19 09/28/19 06:59 06:59 06:59 Intake Total 804 337 597 Output Total 0 400 Balance 804 337 197 - Physical Exam General: alert & oriented x3, appears well, no apparent distress, speech clear, affect appropriate HEENT: mucus membranes moist, normocephaly, EOMI. negative: oral lesions Neck: supple neck, midline trachea, no JVD/HJR, no lymphadenopathy Cardiology: regular rate and rhythm, no murmur, PMI nondisplaced Lungs: clear to auscultation, no wheeze, rales, rhonchi Neurology: cranial nerve 2-12 intact, grossly intact, no lateralizing findings Abdomen: unremarkable, active bowel sounds, no pulsations/bruits, HJR negative Skin: groin sites stable, device site stable w/o swelling (+ mild hematoma and swelling.), bruising, left sided device, hematoma, swelling. negative: drainage , erosion - Labs Result Diagrams: 09/27/19 10:38 09/27/19 04:30 - EKG Interpretation EKG Method: Telemetry EKG shows: Sinus rhythm - Device Device: biventricular, pacemaker Device Result: [employer] - Assessment/Plan Assessment/Plan: 1. syncope and collapse of unknown etiology 2. Left bundle-branch block 3. 1st degree AV block 4. hypertension 5. 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 symptomatic bradycardia 7. [employer] Pacemaker - normal check this AM - CXR post implant stable - Post implant keflex x 7 days Mr. Hester was not inducible for ventricular tachycardia and a biventricular pacemaker was implanted to address his symptomatic bradycardia and ventricular dyssynchrony. Some atrial fibrillation was seen during the electrophysiology study although this is not seen clinically. I will continue to monitor for recurrence of atrial fibrillation through his pacemaker as an outpatient and would hold off on any anticoagulation until that time. There is mild moderate size hematoma at the implant site and all have a pressure dressing placed. He takes [place] 10/325 at home for pain so I will make this available for him in the hospital as a p.r.n. medication. T3 has not been effective at controlling his pain. With pacemaker support in place he may resume his carvedilol as directed by Cardiology. He has had some borderline hypotension documented with no jugular venous distension. I have no suspicion of effusion or tamponade. once his pain is under control he is cleared for discharge from an electrophysiology perspective. he will need to continue Keflex as prescribed for 7 days post implant and return to clinic in 2 weeks for wound and device check. Thank you for allowing me to participate in the care of this patient.
[2019-09-27] MEDS: Cephalexin 250 MG CAP PO SCH ×2 (14:57→20:30)
[2019-09-27] MEDS: Mirtazapine 15 MG TAB PO SCH (20:30)
[2019-09-27] MEDS: HYDROcodone/Acetaminophen 5/325 mg Tablet PO PRN (20:30)
[2019-09-27] MEDS: Atorvastatin Calcium 40 MG TAB PO SCH (20:31)
[2019-09-28] MEDS: Acetaminophen/Codeine 30-300mg Tablet PO PRN (01:13)
[2019-09-28] MEDS: Cephalexin 250 MG CAP PO SCH (04:55)
[2019-09-28] MEDS: HYDROcodone/Acetaminophen 5/325 mg Tablet PO PRN ×2 (04:55→12:23)
[2019-09-28 05:01] LABS: Anion Gap 12 mmol/L (10-20); BUN (Urea Nitrogen) 27 mg/dL (8.4-25.7); Calc. Creatinine Clearance 88 mL/min (70-130); Calcium 9.4 mg/dL (7.8-10.44); Carbon Dioxide 30 mmol/L (23-31); Chloride 102 mmol/L (98-107); Estimated GFR-MDRD 86; Glucose 106 mg/dL (83-110); Potassium 4.2 mmol/L (3.5-5.1); Sodium 140 mmol/L (136-145)
[2019-09-28 07:43] VITALS: BP 168/81; TEMP 97.8
[2019-09-28] MEDS: Clopidogrel Bisulfate 75 MG TAB PO SCH (09:39)
[2019-09-28] MEDS: Aspirin 81 mg Enteric Coated Tablet PO SCH (09:39)
[2019-09-28] MEDS: Venlafaxine HCl XR 75 MG CAP PO SCH (09:40)
[2019-09-28] MEDS: HYDROcodone/Acetaminophen 10/325 mg Tablet PO PRN (09:40)
[2019-09-28] MEDS: Enoxaparin Sodium 40 MG/0.4 ML SYRINGE SC SCH (09:41)
[2019-09-28] MEDS ORDERED: Carvedilol 3.125 MG TAB PO SCH ×2 (10:00→17:00)
--- NOTE | 2019-09-28 22:44 | DIS ---
DATE OF ADMISSION: 09/21/2019 DATE OF DISCHARGE: 09/28/2019 DISCHARGE DIAGNOSES: As of the followin. Syncope. 2. Hypotension, resolved. 3. Coronary artery disease. 4. Hyperlipidemia. 5. Hypertension. HOSPITAL COURSE: The patient is a very pleasant 79-year-old male, who initially presented to the hospital with an actual syncopal episode. Neurology and Cardiology were both consulted. The patient's blood pressure medications were stopped. He was given multiple boluses. His blood pressure improved. However, had bouts of bradycardia even with being off beta blockers. At this time, Electrophysiology was consulted and the patient underwent insertion of a biventricular pacer implant. At this time, the patient was noted to have some clinical atrial fibrillation. As I mentioned, patient per EP note, there was some inducible atrial fibrillation at this time due to the hematoma that was around his pacemaker site. The decision was to follow up with EP as outpatient for further evaluation and the patient might require anticoagulation. The patient currently feels well. He will be discharged home and follow up with his primary. He was also seen by Neurology, who did not think this was anything in regard to neurological process in terms of his syncope. MEDICATIONS: He is currently on: 1. Coreg 3.125 b.i.d. 2. Keflex 100 mg q.8 hours for 7 days. 3. Venlafaxine 75 mg daily. 4. Clopidogrel 75 mg daily. 5. Mirtazapine mg at bedtime. 6. Pregabalin 150 mg b.i.d. p.r.n. 7. [place] as needed. 8. Ambien 10 mg at bedtime. PHYSICAL EXAMINATION: VITAL SIGNS: Temperature 97.8, 61, 89% on room air, 168/71. GENERAL: He is awake, alert, and oriented x3. Does not appear in distress. CV: S1, S2 present. No murmurs, rubs, or gallops. ABDOMEN: Soft and nontender. Bowel sounds are present x2. His pacemaker site, he does have a hematoma extending down to his left arm. I have told him to keep an eye on it. If his hematoma gets worse or if he starts having fevers or chills or any sudden changes, he is to come into the hospital. Job ID: [id number]
--- NOTE | 2019-09-30 16:08 | EKG ---
Test Reason : POST PACEMAKER INSER Blood Pressure : / mmHG Vent. Rate : 082 BPM Atrial Rate : 082 BPM P-R Int : 174 ms QRS Dur : 144 ms QT Int : 454 ms P-R-T Axes : 092 121 035 degrees QTc Int : 530 ms Electronic ventricular pacemaker When compared with ECG of 19-SEP-2019 10:08, Electronic ventricular pacemaker has replaced Sinus rhythm Confirmed by MALIA DURAN (2) on 09/30/2019 4:07:50 PM Referred By: STEPHANIE Confirmed By:MALIA DURAN
--- NOTE | 2019-09-30 16:20 | EKG ---
Test Reason : Blood Pressure : / mmHG Vent. Rate : 078 BPM Atrial Rate : 078 BPM P-R Int : 196 ms QRS Dur : 146 ms QT Int : 514 ms P-R-T Axes : 033 140 077 degrees QTc Int : 585 ms Poor data quality, interpretation may be adversely affected Electronic ventricular pacemaker When compared with ECG of 26-SEP-2019 14:56, (Unconfirmed) Vent. rate has decreased BY 4 BPM Confirmed by MALIA DURAN (2) on 09/30/2019 4:19:51 PM Referred By: STEPHANIE Confirmed By:MALIA DURAN
--- NOTE | 2019-10-10 09:32 | PQF ---
[employer] Operational Risk Analyst Crystal Reports [employer] CATINA Ruth STEPHANIEADAMA Roldan [id number] [id number] CLINICAL DOCUMENTATION CLARIFICATION FORM: POST DISCHARGE Addendum to original discharge summary date: 09/21/19 Late entry note date: 10/10/19 DATE: 10/10/2019 ATTN: Adama Bishop Please exercise your independent, professional judgment in responding to the clarification form. Clinical indicators are provided on the bottom of this form for your review Please check appropriate box(s): [ ] Coagulation disorder is due to (please specify) [X ] No coagulation disorder [ ] Other diagnosis [ ] Unable to determine In addition, please specify: Present on Admission (POA): [ ] Yes [ ] No [ X ] Unable to determine For continuity of documentation, please document condition throughout progress notes and discharge summary. Thank You. CLINICAL INDICATORS - SIGNS / SYMPTOMS / LABS APTT is 43.1 on 09/18 - Labs He does not take ASA, he states that this was stopped due to excessive bruising - Consult 09/19 by Clay Kuo MD Lovenox 40 mg subcu daily - H&P ASA, Plavix, Clopidogrel - [employer]ISK FA[employer]ORS Hematoma at his pacemaker site - Discharge summary TREATMENTS: Clopidogrel 75 mg daily - Discharge summary (This form is maintained as a part of the permanent medical record) 2014 [employer]. All Rights Reserved Perry [email or web address]
== END 2019-09-28 13:58 | disposition home or self-care (01) | DRG 243 ==
LOC: ERS 10:03 → 2SE 14:48 → OBSVTOIN 09-21 15:25
PROVIDERS: ADMIT Internal Medicine; ATTEND Internal Medicine
PROC: 0JH607Z Insertion of Cardiac Resynchronization Pacemaker Pulse Generator into Chest Subcutaneous Tissue and Fascia, Open Approach (ICD-10-PCS; principal; 2019-09-26)
PROC: 02H63JZ Insertion of Pacemaker Lead into Right Atrium, Percutaneous Approach (ICD-10-PCS; 2019-09-26)
PROC: 02HK3JZ Insertion of Pacemaker Lead into Right Ventricle, Percutaneous Approach (ICD-10-PCS; 2019-09-26)
PROC: 4A023FZ Measurement of Cardiac Rhythm, Percutaneous Approach (ICD-10-PCS; 2019-09-26)
PROC: 4A0234Z Measurement of Cardiac Electrical Activity, Percutaneous Approach (ICD-10-PCS; 2019-09-26)
PROC: 02K83ZZ Map Conduction Mechanism, Percutaneous Approach (ICD-10-PCS; 2019-09-26)
PROC: 02HL3JZ Insertion of Pacemaker Lead into Left Ventricle, Percutaneous Approach (ICD-10-PCS; 2019-09-26)
DX: R55 Syncope and collapse (principal); I97.638 Postprocedural hematoma of a circulatory system organ or structure following other circulatory system procedure; I42.9 Cardiomyopathy, unspecified; I95.9 Hypotension, unspecified; I25.10 Atherosclerotic heart disease of native coronary artery without angina pectoris; E78.5 Hyperlipidemia, unspecified; I10 Essential (primary) hypertension; R00.1 Bradycardia, unspecified; I44.7 Left bundle-branch block, unspecified; I44.0 Atrioventricular block, first degree; Z96.652 Presence of left artificial knee joint; Z96.641 Presence of right artificial hip joint; I48.91 Unspecified atrial fibrillation; Y83.8 Other surgical procedures as the cause of abnormal reaction of the patient, or of later complication, without mention of misadventure at the time of the procedure; Z85.46 Personal history of malignant neoplasm of prostate; Z95.1 Presence of aortocoronary bypass graft; Z79.02 Long term (current) use of antithrombotics/antiplatelets; Z90.49 Acquired absence of other specified parts of digestive tract; Z95.5 Presence of coronary angioplasty implant and graft
CPT/HCPCS: 33208; 33225; 36005; 36415; 36416; 70450; 71045; 75820; 76942; 80048; 80053; 80061; 81003; 82140; 82533; 82550; 83690; 83735; 84146; 84443; 84484; 85025; 85610; 85730; 93005; 93010; 93306; 93622; 95816; 95819; 96374; C1730; C1769; C1882; C1898; C1900; J0690; J1580; J1644; J1650; J1940; J2001; J2405; J2704; J3010; Q9967; S0028

== ENCOUNTER 2019-10-02 03:59 | Inpatient (IN) | payer MEDICARE ==
[2019-10-02 04:53] LABS: #Eosinphils 0.2 thou/uL (0.0-0.7); #Lymphocytes 2.8 thou/uL (1.20-3.40); #Monocytes 1.2 thou/uL (0.11-0.59); #Neutrophils 14.7 thou/uL (1.40-6.50); %Basophils 0.2 % (0.0-1.0); %Eosinophils 1.2 % (0.0-10.0); %Lymphocytes 14.7 % (21.0-51.0); %Monocytes 6.5 % (0.0-10.0); %Neutrophils 77.5 % (42.0-75.0); Hemoglobin 7.7 g/dL (14.0-18.0); Mean Corpuscular HGB CONC 33.1 g/dL (32.0-36.0); Mean Corpuscular Hemoglobin 31.1 pg (27.0-31.0); Mean Corpuscular Volume 93.9 fL (78.0-98.0); Mean Platelet Volume 8.1 fL (7.4-10.4); Platelet Count 273 thou/uL (130-400); RBC Distribution Width 12.9 % (11.5-14.5); Red Blood Cell (RBC) Count 2.49 mill/uL (4.70-6.10); White Blood Cell (WBC) Count 18.9 thou/uL (4.8-10.8)
[2019-10-02] MEDS ORDERED: Fentanyl 100 MCG/2 ML VIAL ONE (05:02)
[2019-10-02 05:21] LABS: INR-International Normal Ratio 1.2; Prothrombin Time 14.7 sec (12.0-14.7)
[2019-10-02 05:22] LABS: PTT 42.2 SEC (22.9-36.1)
[2019-10-02 05:24] LABS: ALT (SGPT) 8 U/L (8-55); AST (SGOT) 19 U/L (5-34); Albumin 3.2 g/dL (3.4-4.8); Alkaline Phosphatase 78 U/L (40-110); Anion Gap 11 mmol/L (10-20); BUN (Urea Nitrogen) 45 mg/dL (8.4-25.7); Bilirubin, Total 0.4 mg/dL (0.2-1.2); Calc. Creatinine Clearance 0 mL/min (70-130); Carbon Dioxide 27 mmol/L (23-31); Chloride 105 mmol/L (98-107); Estimated GFR-MDRD 56; Globulin 2.4 g/dL (2.4-3.5); Glucose 163 mg/dL (83-110); Potassium 4.4 mmol/L (3.5-5.1); Protein, Total 5.6 g/dL (5.8-8.1); Sodium 139 mmol/L (136-145)
[2019-10-02 05:30] LABS: CK (CPK) 148 U/L (30-200); Lipase 12 U/L (8-78)
[2019-10-02] MEDS ORDERED: Adacel (T-DAP) 0.5 ML SYRINGE ONE (06:02)
[2019-10-02] MEDS ORDERED: Cefepime 2 GM VIAL ONE (07:34)
--- NOTE | 2019-10-02 07:43 | CT ---
CHEST CT WITH CONTRAST ABDOMEN CT WITH CONTRAST PELVIC CT WITH CONTRAST LIMITED CT OF THE THORACIC AND LUMBAR SPINE: HISTORY: Fall. Patient was down for an unknown period of time. Correlation: None. COMPARISON: 05/06/2015, 11/15/2018. FINDINGS: Chest CT: Pacemaker: There is evidence of subcutaneous emphysema and air at the level of the pacemaker generato r in the left chest. Patient had recent revisions/replacement on September 25. Mediastinum: No mass, lymphadenopathy or hematoma. Aorta: Evidence of previous endovascular repair. Current study does not allow for evaluation of an en doleak. There is a dissection involving the distal descending thoracic aorta, suprarenal aorta and infrarenal aorta. The true lumen supplies the celiac artery, superior mesenteric artery, right renal artery. The false lumen supplies the left renal artery and the inferior mesenteric artery. Heart: Normal heart size. No pericardial effusion. Trachea and central bronchi: Patent. Pleural spaces: No pleural effusion. Right lung: Chronic changes. No masses or consolidation. Stable noncalcified lung parenchymal nodules . Left lung:Chronic changes. No masses or consolidation. Pneumothorax: None. Abdomen CT: Gallbladder: Surgically absent. Portal vein: Patent. Liver: Appropriate enhancement.. Spleen: Appropriate enhancement. Pancreas: Appropriate enhancement. Adrenal glands: Appropriate enhancement. Lymphadenopathy: No gastrohepatic, retrocrural or periportal lymphadenopathy. Kidneys: Symmetric enhancement. Bilaterally no obstructive uropathy. Mesentery: No mass, lymphadenopathy, free air or free fluid. Alimentary canal: Limited evaluation by the lack of oral contrast. No small bowel obstruction. Normal ileocecal junction. Scattered fecal material in a nondistended, nondilated colon. Diverticulosis, without evidence of diverticulitis. Pelvis CT: Limited evaluation due to beam attenuation artifact. No pelvic mass, lymphadenopathy, free air or mat e fluid. Urinary bladder has a normal appearance. Presacral fat is preserved. Osseous structures:Degenerative changes involving both shoulders. Bilateral clavicles, scapula and st ernum are intact. No acute rib fractures are appreciated. Remote trauma to the left RIBS is identified. There are chronic changes involving the bony pelvis. Acute fractures are not appreciated . Incidentals: Vascular stent involving the left common femoral artery. Limited CT of the thoracic and lumbar spine: Vertebral body heights are maintained. No fracture or ma lalignment. IMPRESSION: 1. No posttraumatic change in the chest, abdomen or pelvis. 2. Previous endovascular repair involving the thoracic aorta. 3. 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 Dissection is similar to the previous examination wi th regards to the distal descending thoracic aorta and abdominal aorta 4. Results of study discussed with Dr. Wolf 10/02/2019 at 7:38 AM. Code CR Transcribed Date/Time: 10/02/2019 8:18 AM
--- NOTE | 2019-10-02 08:03 | CT ---
PRELIMINARY REPORT/[facility]/EMERGENCY AFTER HOURS PROCEDURE EXAM: CT Head and Cervical Spine Without IV contrast. CLINICAL HISTORY: FALL TECHNIQUE: Axial computed tomography images were acquired of the head and the cervical spine without intravenous contrast. Sagittal and coronal reformatted images were obtained of the cervical spine. COMPARISON: None provided. FINDINGS: BRAIN: No acute intraparenchymal hemorrhage. No mass lesion. No CT evidence for acute territorial inf arct. No midline shift or extra-axial collection. VENTRICLES No hydrocephalus. ORBITS The orbits are unremarkable. SINUSES AND MASTOIDS The paranasal sinuses and mastoid air cells are clear. SOFT TISSUES No significant facial or scalp soft tissue swelling evident. No radiopaque foreign body is seen. BONES No acute osseous pathology evident. No acute fracture is evident on images of the head or cerv ical spine. DISKS/DEGENERATIVE CHANGES There is a large central disc herniation at the C3-4 level with the poste rior marginal bone spur complex in the bilateral uncovertebral hypertrophy, and bilateral facet arthr opathy, causing hfmrgoru-[id number] central spinal canal stenosis and bilateral neural foraminal narro wing. There is severe degenerative discogenic disease from C5-T1 with bilateral uncovertebral hypertr ophy and facet arthropathy, causing [id number] bilateral neural foraminal narrowing with mild to moderate central spinal canal stenosis. IMPRESSION: 1. There is a large central disc herniation at the C3-4 level with the posterior marginal bone spur c omplex in the bilateral uncovertebral hypertrophy, and bilateral facet arthropathy, causing moderate- to-severe central spinal canal stenosis and bilateral neural foraminal narrowing. 2. There is severe degenerative discogenic disease from C5-T1 with bilateral uncovertebral hypertroph y and facet arthropathy, causing [id number] bilateral neural foraminal narrowing with mild to moderate central spinal canal stenosis. 3. No CT evidence of acute fracture or dislocation. ELECTRONICALLY SIGNED BY: Nadya Bowman MD October 02, 2019 4:32:09 AM CDT FINAL REPORT CT BRAIN WITHOUT CONTRAST: I agree with the preliminary report given by Dr. Nadya Bowman of [facility]. Comparison is made with the exam of 09/21/2019. No CT evidence of acute intracranial process is seen. CT CERVICAL SPINE WITHOUT CONTRAST: Degenerative changes are present. No acute fracture, subluxation, or facet malalignment is seen. Ce ntral canal stenosis and bilateral neural foraminal stenosis seen at C3-4 level is most prominent. I agree with the preliminary report given by Dr. Tracy Bowman of [facility]. POS: MOLINAA
[2019-10-02 08:08] LABS: Bacteria/HPF None Seen HPF (None Seen); Bilirubin Negative (Negative); Blood, Urine Negative (Negative); Clarity Clear (Clear); Glucose, Urine (Dipstick) Normal (Negative); Leukocyte Negative Leu/uL (Negative); Nitrite Negative (Negative); Protein, Urine (Dipstick) 30 mg/dL (Neg-Trace); RBC/HPF 0-3 HPF (0-3); Squamous Epithelial None Seen HPF (0-3); Urobilinogen 3 mg/dL (Less than 2); WBC/HPF 0-3 HPF (0-3)
[2019-10-02] MEDS ORDERED: Vancomycin 1 GM/200 ML BAG ONE (08:16)
[2019-10-02 08:24] LABS: Lactic Acid 1.1 mmol/L (0.5-2.2)
[2019-10-02 08:32] LABS: Troponin I 0.017 ng/mL (< 0.028)
[2019-10-02] MEDS ORDERED: Iopamidol-370 76% 500 ML 1 ML ONE (09:18)
[2019-10-02] MEDS ORDERED: Acetaminophen 325 MG/10.15 ML UDCUP PO PRN (10:02)
[2019-10-02] MEDS ORDERED: Zolpidem Tartrate 5 MG TAB PO PRN ×2 (10:04→21:00)
[2019-10-02] MEDS ORDERED: Acetaminophen 325 MG TAB PO PRN (10:04)
[2019-10-02] MEDS ORDERED: Sodium Chloride 0.9% 1,000 ML IV SCH (10:15)
--- NOTE | 2019-10-02 10:59 | HP ---
HISTORY OF PRESENT ILLNESS: The patient is a poor historian, so the history and physical is based on the EMR and reports from the ED physician and EMS. Mr. Hester is an 79-year-old male with a medical history of syncope, symptomatic bradycardia, and ventricular dyssynchrony status post biventricular pacemaker placement, cardiomyopathy with mildly reduced ejection fraction, and hypertension, who presented after being found down by the EMS. The patient went to take a shower and had a mechanical fall on the way, hitting the superior part of the scalp and resulting in a laceration. There were no prodromal symptoms or palpitations prior to his fall. He was found down actively bleeding by the EMS and was taken to the emergency room. On encounter, the patient is lying in bed and appears mildly anxious, mostly because he does not understand what happened. Denies headache, vision change, neck pain, cough, fever, chills, night sweats, chest pain, palpitations, dyspnea, diarrhea, abdominal pain, dysuria, burning on urination, extension of the hematoma he had on discharge starting at the site of the pacemaker, ED COURSE: In the ED, the patient was found to be hypotensive, hypothermic with an actively bleeding laceration. The laceration was sutured and bleeding stopped. Hypothermia resolved after administration of a Karon Hugger. CT of the head was negative for intracranial bleeding, and CT of the chest and pelvis showed a descending aortic dissection that was old. The patient received warmed IV fluids and 2 units of PRBCs. His blood pressure improved to a map of around 70 to 75, and he was admitted to the IMCU. REVIEW OF SYSTEMS: Complete review of systems was carried out and was negative with the exception of that mentioned in the HPI. PAST MEDICAL HISTORY: Hypertension, CABG x3, syncope, symptomatic bradycardia with ventricular dysrhythmia status post pacemaker placement last month, prostate cancer (treated in 2015). PAST SURGICAL HISTORY: CABG, repair of ascending aortic dissection, left knee replacement, right hip replacement. SOCIAL HISTORY: No alcohol or recreational drug use. Occasionally chews tobacco. FAMILY HISTORY: Father in his 80s because of cardiac disease. Mother after a fall resulting in intracranial hemorrhage. Had 2 children who from cystic fibrosis. ALLERGIES: NO KNOWN DRUG ALLERGIES. MEDICATIONS: Based on the most recent discharge summary from May 8, 1. Coreg. 2. Plavix. 3. Venlafaxine. 4. Mirtazapine. 5. Pregabalin. 6. [place]. 7. Zolpidem. PHYSICAL EXAMINATION: VITAL SIGNS: In the ED were blood pressure 102/61, pulse was 82, respiratory rate was 16 on 2 L nasal cannula, and temperature was 97.9 oral. GENERAL: Lying in bed and appears mildly anxious because he does not understand well. Alert and oriented x3. HEENT: Has a superior scalp laceration with stitches that is not actively bleeding. There is dry blood extending from the scalp all the way to his thorax and arms. CARDIAC: Left upper thorax pacemaker incision does not appear to be infected. There is some fluctuance and dry blood at the incision site. No tenderness. Regular rate and rhythm. Radial pulses are equal. LUNGS: Clear to auscultation bilaterally with no wheezing, rales, or rhonchi. ABDOMEN: Nontender, nondistended. Normal bowel sounds. EXTREMITIES: Bilateral pitting lower extremity edema up to knee level, equal. Bilateral pedal pulses appreciated. PSYCHIATRIC: Proper mood, proper affect. Alert and oriented x3. LABORATORY DATA AND IMAGING STUDIES: CT of the head showed no intracranial hemorrhage. CT of the chest and pelvis again showed no hemorrhage. It did show descending aortic dissection that is old. Hemoglobin is 7.7, down from 11.4 on September 26. Urinalysis and urine function studies are consistent with concentrated urine and hypovolemia. ASSESSMENT/PLAN: Mr. Hester is an 79-year-old male with a medical history of symptomatic bradycardia and ventricular dysrhythmia status post biventricular pacemaker placement, coronary artery bypass graft, ascending and descending aortic dissection (ascending aortic dissection was repaired in [facility]), who presents with hypovolemic hypotension due to acute anemia as a result of a mechanical fall. 1. Hypovolemic hypotension, due to acute blood loss. Even though the patient's heart rate is in 80s, he has baseline bradycardia. Urine studies suggestive of hypovolemia, so hemoglobin levels maybe underappreciated due to hemoconcentration. The patient's blood pressure partially responded after IV fluids and starting of PRBC transfusion. The patient is currently hemodynamically stable with no active overt bleeding. Plan transfuse 2 times PRBC and recheck hemoglobin. Start IV fluids. Continuous blood pressure management. Hold Plavix. 2. Symptomatic bradycardia and ventricular dysrhythmia status post biventricular pacemaker placement. The patient appeared to have had a mechanical fall rather than an arrhythmic syncope. Monitor on telemetry. 3. Scalp laceration. The patient's bleeding was stopped with sutures. 4. Disposition and prophylaxis. The patient is full code. 5. Deep venous thrombosis prophylaxis, SCDs due to acute anemia and recent active bleeding. Gastrointestinal prophylaxis not indicated. 6. Estimated length of stay 2 midnights. Job ID: [id number]
[2019-10-02 12:16] LABS: Hemoglobin 8.8 g/dL (14.0-18.0)
[2019-10-02] MEDS: Sodium Chloride 0.9% 1,000 ML IV SCH (12:17)
--- NOTE | 2019-10-02 12:40 | RAD ---
PORTABLE CHEST 1 VIEW: DATE: 10/02/2019. TIME: 4:42 AM. HISTORY: Fall. COMPARISON: 09/26/2019. FINDINGS: Changes of median sternotomy and left-sided pacing device are again seen. The heart size is prominen t but stable. Aortic stent graft is again noted. No lobar consolidation, pneumothoraces, clarence pulm onary edema, or pleural effusions are seen. There are degenerative changes in the shoulder joints. IMPRESSION: No acute process. POS: MOLINAA
[2019-10-02 13:53] VITALS: BMI 27.2
[2019-10-02] MEDS ORDERED: Pregabalin 75 MG CAP PO PRN (15:00)
[2019-10-02] MEDS: HYDROcodone/Acetaminophen 10/325 mg Tablet PO PRN ×2 (15:33→21:19)
[2019-10-02] MEDS: Cephalexin 250 MG CAP PO SCH ×2 (15:34→21:20)
--- NOTE | 2019-10-02 17:02 | RAD ---
Radiograph right shoulder 2 views: DATE: 10/02/2019 HISTORY: 79-year-old male with acute, traumatic right shoulder pain FINDINGS: No dislocation. Severe joint space narrowing and moderate osteophytosis of glenohumeral joint. No sub luxation. Multiple ossific fragments in the soft tissues inferior to the glenohumeral joint. No displaced fracture identified. IMPRESSION: 1. Severe osteoarthrosis of right glenohumeral joint. 2. 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 3. No acute fracture identified.
[2019-10-02 19:07] LABS: Hemoglobin 7.7 g/dL (14.0-18.0)
[2019-10-02] MEDS: Mirtazapine 15 MG TAB PO SCH (21:18)
[2019-10-03] MEDS: Sodium Chloride 0.9% 1,000 ML IV SCH ×2 (02:24→13:28)
[2019-10-03] MEDS: HYDROcodone/Acetaminophen 10/325 mg Tablet PO PRN ×5 (02:26→21:26)
[2019-10-03 03:28] LABS: Hemoglobin 7.9 g/dL (14.0-18.0); Mean Corpuscular HGB CONC 33.8 g/dL (32.0-36.0); Mean Corpuscular Hemoglobin 32.1 pg (27.0-31.0); Mean Corpuscular Volume 94.9 fL (78.0-98.0); Platelet Count 191 thou/uL (130-400); Red Blood Cell (RBC) Count 2.44 mill/uL (4.70-6.10); White Blood Cell (WBC) Count 10.2 thou/uL (4.8-10.8)
[2019-10-03 03:49] LABS: Anion Gap 11 mmol/L (10-20); BUN (Urea Nitrogen) 26 mg/dL (8.4-25.7); Calc. Creatinine Clearance 94 mL/min (70-130); Calcium 7.8 mg/dL (7.8-10.44); Carbon Dioxide 25 mmol/L (23-31); Chloride 110 mmol/L (98-107); Estimated GFR-MDRD Greater than 90; Glucose 108 mg/dL (83-110); Potassium 3.9 mmol/L (3.5-5.1); Sodium 142 mmol/L (136-145)
[2019-10-03] MEDS: Cephalexin 250 MG CAP PO SCH ×3 (06:44→19:38)
--- NOTE | 2019-10-03 08:44 | PDOC.HOSPP ---
- Subjective Encounter Date: 10/03/19 Encounter Time: 07:30 Subjective: overnight, movement of right upper extremity limited by pain. Per patient, able to move it prior to fall. XRay shows no acute process. Has been hemodynamically stable and has no other complaints. Transfer to medical floor - Objective Vital Signs & Weight: Vital Signs (12 hours) Temp Pulse Ox 10/03/19 07:19 96 10/03/19 07:07 98.1 F 10/03/19 04:00 98.6 F 10/03/19 00:00 98.4 F Weight Weight 201 lb 1.6 oz Most Recent Monitor Data Heart Rate from ECG 70 NIBP 155/68 NIBP BP-Mean 97 Respiration from ECG 12 SpO2 97 I&O: 10/02/19 10/03/19 10/04/19 06:59 06:59 06:59 Intake Total 2085 Output Total 1375 Balance 710 Result Diagrams: 10/03/19 03:05 10/03/19 03:04 Hospitalist ROS - Review of Systems Constitutional: denies: fever, chills, sweats, weakness, malaise, other Respiratory: denies: cough, dry, shortness of breath, hemoptysis, SOB with excertion, pleuritic pain, sputum, wheezing, other Cardiovascular: denies: chest pain, palpitations, orthopnea, paroxysmal noc. dyspnea, edema, light headedness, other Gastrointestinal: denies: nausea, vomiting, abdominal pain, diarrhea, constipation, melena, hematochezia, other Genitourinary: denies: dysuria, frequency, incontinence, hematuria, retention, other Musculoskeletal: reports: shoulder pain - Medication Medications: Active Medications Generic Name Dose Route Start Last Admin Trade Name Freq PRN Reason Stop Dose Admin Hydrocodone Bitart/Acetaminophen 1 tab 10/02/19 15:00 10/03/19 07:14 [place] 10/325 PO 1 tab Q4H PRN Administration Pain Cephalexin 500 mg 10/02/19 14:00 10/03/19 06:44 Keflex PO 500 mg Q8HR JANAE Administration Sodium Chloride 1,000 mls @ 75 mls/hr 10/02/19 10:15 10/03/19 02:24 Normal Saline 0.9% IV 1,000 mls .[id number] JANAE Administration Mirtazapine 15 mg 10/02/19 21:00 10/02/19 21:18 Remeron PO 15 mg HS JANAE Administration Sodium Chloride 10 ml 10/02/19 21:00 10/03/19 07:16 Flush - Normal Saline IVF 10 ml Q12HR JANAE Administration - Exam General Appearance: NAD, awake alert Heart: RRR, no murmur, no gallops, no rubs, normal peripheral pulses Heart - other findings: paced rhythm; pacemaker hematoma stable Respiratory: CTAB, no wheezes, no rales, no ronchi, normal chest expansion, no tachypnea, normal percussion Gastrointestinal: soft, non-tender, non-distended, normal bowel sounds, no palpable masses, no hepatomegaly, no splenomegaly, no bruit Extremities: 2+ LE edema Musculoskeletal - other findings: right arm: can flex and extend elbow. Can't extend arm, limited by pain Psychiatric: normal affect, normal behavior, A&O x 3 Hosp A/P - Plan #Hemorrhagic shock (resolved) -HD and HgB stable -continue IVF -tranfer to medical floor #right shoulder injury -could move right arm prior to injury; now, slight extension results in severe pain; no significant tenderness surrounding glenohumeral; no overlying swelling or erythema -Xray c/w severe osteoarthritis, no dislocation Fx -consult orthopedic surgery #Ascending and descending aortic dissection -ascending dissection repaired in [facility]; Descending managed medically #CAD s/p CABG (2004) s/p stents (2008) -restart plavix Disposition: transfer to medical floor ELOS 1 midnight
--- NOTE | 2019-10-03 09:17 | CON ---
DATE OF CONSULTATION: HISTORY OF PRESENT ILLNESS: Satish Hester is an 79-year-old gentleman, who was just recently underwent a pacemaker insertion by the left subclavian. He tripped and fell yesterday causing a scalp laceration, requiring suturing. He is in the MICU, reason for consult. He is a nonsmoker, nondrinker. Previously treated pneumonia, childhood asthma. No history of TB exposure. His primary care physician is Dr. Davenport. Most of the days, he is relatively active. Following the discharge, he was doing well, but tripped on a rug. This morning, he is complaining of right shoulder pain, unable to lift his shoulder off the bed, but otherwise no shortness of breath, coughing, or chest pain. PAST MEDICAL HISTORY: Coronary artery disease, prostate cancer, hypertension, and advanced age. PAST SURGICAL HISTORY: CABG, left knee, right hip, gallbladder. HOME MEDICATIONS: 1. Pregabalin 150 twice a day. 2. Mirtazapine 15 once a day. 3. Hydrocodone. 4. Plavix 75. 5. Coreg 3.125. 6. Ambien. ALLERGIES: NONE. SOCIAL HISTORY: Rancher. FAMILY HISTORY: Unremarkable. PHYSICAL EXAMINATION: VITAL SIGNS: Temperature 98, saturations are 96% on room air, blood pressure . GENERAL: Awake, alert, responsive except for shoulder pain, otherwise unremarkable. CHEST: No wheezing or crackles. CARDIAC: Normal S1, S2. No gallops. ABDOMEN: No masses. LABORATORY DATA: His H and H are low at 7.9 and 23. His x-ray of his shoulder shows osteoarthritis, but there were no acute fractures. His extensive CT imaging studies of his chest, abdomen, and pelvis was done, which shows no acute findings. His renal function is back to normal. ASSESSMENT: Chronic anemia, prostate cancer, fall, head laceration, injury to the shoulder, recent pacemaker, and advanced age. PLAN: He appears to be stable pulmonary chavez. Suggest PT, supportive care. Home when stable. We will follow while in the MICU. Consultation note, 70 minutes, 50% direct patient care. Job ID: [id number]
[2019-10-03] MEDS: Venlafaxine HCl XR 75 MG CAP PO SCH (10:00)
[2019-10-03] MEDS: Carvedilol 6.25 MG TAB PO SCH ×2 (10:00→19:34)
[2019-10-03 14:00] LABS: Hemoglobin 7.7 g/dL (14.0-18.0)
--- NOTE | 2019-10-03 14:05 | CON ---
DATE OF CONSULTATION: 10/03/2019 REQUESTING PHYSICIAN: Trever Gonzalez MD CONSULTING PHYSICIAN: Priyank Benitez MD REASON FOR CONSULTATION: Right shoulder pain with stiffness, acute onset, superimposed on chronic nature. BRIEF CLINICAL HISTORY: Satish is an 79-year-old male. We were consulted on for evaluation during his hospital admission for pacemaker implantation due to syncope. Apparently, he fell a few days ago resulting in an admission workup and with bradycardia and he had a pacemaker implanted yesterday. Our service has been consulted for severe pain in the right shoulder, which has had a chronic baseline, which was amplified after his fall. Plain radiographs have been obtained. No fractures have identified, but severe glenohumeral arthritis has been noted, and the patient's history confirms this. Subjectively, he has had stiffness, discomfort and pain in the right shoulder for many years, and he is known that he has had shoulder arthritis. He has had injections in it before, but the pain was amplified after his fall, which prompted this evaluation. REVIEW OF SYSTEMS: He denies any fever, chills, nausea, vomiting, chest pain, dyspnea on exertion. He denies any numbness, tingling, weakness in the right upper extremity. He admits to severe pain, especially when he tries to use it. He cannot abduct and use the shoulder except for the elbow down. PHYSICAL EXAMINATION: He is neurovascularly intact. He has a sulcus sign. Tenderness is elicited with palpation on the anterior and posterior joint line. Movement is unbearable for him. It is quite stiff and he has no active forward flexion or abduction or external rotation. He essentially is nearly fused at neutral, but he has good elbow function. The patient confirms this has been a chronic issue for him. IMAGING STUDIES: Severe glenohumeral osteoarthritis with cephalad migration and medialization of the humeral head, this has been noted inside the glenoid. He has incredibly large osteophytes also in the inferior pouch of the shoulder. No fracture is identified. IMPRESSION: Severe end-stage glenohumeral osteoarthritis with superimposed acute pain on chronic due to a fall, but without fracture. PLAN: I will have the patient follow up with Dr. Pacheco for a formal shoulder evaluation as an outpatient, but at this point, no further intervention is recommended except for maybe some pain management, which we will defer to the Medicine Team and his outpatient physician. I have scheduled the patient to see Dr. Pacheco in 3 to 4 weeks. Reconsult as needed. Job ID: [id number]
[2019-10-03] MEDS: Mirtazapine 15 MG TAB PO SCH (19:34)
[2019-10-04] MEDS: HYDROcodone/Acetaminophen 10/325 mg Tablet PO PRN ×4 (01:21→14:38)
[2019-10-04] MEDS: Sodium Chloride 0.9% 1,000 ML IV SCH ×2 (02:41→17:32)
[2019-10-04] MEDS: Cephalexin 250 MG CAP PO SCH ×2 (05:44→14:38)
[2019-10-04 06:25] LABS: #Eosinphils 0.4 thou/uL (0.0-0.7); #Lymphocytes 2.2 thou/uL (1.20-3.40); #Monocytes 0.9 thou/uL (0.11-0.59); #Neutrophils 5.3 thou/uL (1.40-6.50); %Basophils 0.1 % (0.0-1.0); %Lymphocytes 24.6 % (21.0-51.0); %Monocytes 9.8 % (0.0-10.0); %Neutrophils 60.6 % (42.0-75.0); Hemoglobin 7.3 g/dL (14.0-18.0); Mean Corpuscular HGB CONC 33.2 g/dL (32.0-36.0); Mean Corpuscular Hemoglobin 31.9 pg (27.0-31.0); Mean Platelet Volume 7.7 fL (7.4-10.4); Platelet Count 183 thou/uL (130-400); RBC Distribution Width 13.3 % (11.5-14.5); Red Blood Cell (RBC) Count 2.29 mill/uL (4.70-6.10); White Blood Cell (WBC) Count 8.8 thou/uL (4.8-10.8)
[2019-10-04 06:45] LABS: Anion Gap 8 mmol/L (10-20); BUN (Urea Nitrogen) 16 mg/dL (8.4-25.7); Calc. Creatinine Clearance 109 mL/min (70-130); Calcium 8.3 mg/dL (7.8-10.44); Carbon Dioxide 28 mmol/L (23-31); Chloride 108 mmol/L (98-107); Estimated GFR-MDRD Greater than 90; Glucose 96 mg/dL (83-110); Sodium 140 mmol/L (136-145)
[2019-10-04] MEDS: Venlafaxine HCl XR 75 MG CAP PO SCH (08:18)
[2019-10-04] MEDS: Carvedilol 6.25 MG TAB PO SCH (08:18)
--- NOTE | 2019-10-04 09:20 | RAD ---
EXAM: CHEST ONE VIEW HISTORY: Hypoxemia COMPARISON: 05/11/2020 FINDINGS: Again noted is evidence of prior CABG. Thoracic aortic stent graft is noted in place. Triple lead lef t subclavian cardiac pacemaking device is also again seen and unchanged. No consolidation or pleural fluid is seen. Remote anterior upper right-sided rib fractures are seen. There is bilateral g lenohumeral osteoarthropathy with severe narrowing of the left glenohumeral joint and subchondral sclerosis. Calcifications are seen overlying the inferior aspect of each glenohumeral joint which may represent intra-articular loose bodies. Chest is overall stable compared to prior exam. IMPRESSION: Stable chest without evidence of an acute cardiopulmonary process.
--- NOTE | 2019-10-04 09:31 | PRG ---
DATE OF SERVICE: 10/04/2019 SUBJECTIVE: This morning, he is awake, alert, and responsive. Denies any pain or discomfort or even shortness of breath. OBJECTIVE: VITAL SIGNS: Temperature 98, pulse 79, respiratory rate 20, saturations are 97% on room air, blood pressure 116/61. CHEST: No wheezing or crackles. CARDIAC: Normal S1, S2. No gallops. ABDOMEN: No masses. LABORATORY: Ongoing anemia, H and H are 7 and 21. BUN and creatinine improved. ASSESSMENT AND PLAN: Status post fall with laceration with significant bleeding. Pulmonary chavez, he is stable. Concern is about the magnitude of blood he has lost from his scalp laceration, appears to be several liters of blood. His initial H and H prior to recent discharge was . Continue PT and supportive care. Eventual placement. Job ID: [id number]
[2019-10-04 12:11] LABS: Hemoglobin 7.7 g/dL (14.0-18.0)
[2019-10-04 19:14] VITALS: BP 112/62; TEMP 98.2
== END 2019-10-04 19:15 | disposition home health service (06) | DRG 871 ==
LOC: ERS 03:59 → IMCU/EMU 07:34 → T4-A 10-03 10:29
PROVIDERS: ADMIT Surgery; ATTEND Internal Medicine
PROC: 0HQ0XZZ Repair Scalp Skin, External Approach (ICD-10-PCS; principal; 2019-10-02)
PROC: 30233N1 Transfusion of Nonautologous Red Blood Cells into Peripheral Vein, Percutaneous Approach (ICD-10-PCS; 2019-10-02)
DX: R57.8 Other shock (principal); I71.01 Dissection of thoracic aorta; D62 Acute posthemorrhagic anemia; I10 Essential (primary) hypertension; E86.1 Hypovolemia; Z96.652 Presence of left artificial knee joint; Z96.641 Presence of right artificial hip joint; S01.01XA Laceration without foreign body of scalp, initial encounter; W19.XXXA Unspecified fall, initial encounter; M19.111 Post-traumatic osteoarthritis, right shoulder; I25.10 Atherosclerotic heart disease of native coronary artery without angina pectoris; Z95.0 Presence of cardiac pacemaker; Z85.46 Personal history of malignant neoplasm of prostate; Z95.1 Presence of aortocoronary bypass graft
CPT/HCPCS: 12001; 36415; 36430; 51701; 70450; 71045; 71260; 72125; 74177; 80048; 80053; 81003; 81015; 82550; 83605; 83690; 84484; 85025; 85027; 85610; 85730; 86850; 86900; 86901; 87040; 90471; 90715; 96361; 96365; 96374; 99292; J0692; J3010; J3370; P9016; Q9967

== ENCOUNTER 2020-09-20 11:15 | Emergency (ER) | payer MEDICARE ==
[~2020-09-20 11:15] MED LIST: Iopamidol-370 76% 500 ML 1 ML ONE
[2020-09-20 12:39] LABS: #Eosinphils 0.3 thou/uL (0.0-0.7); #Lymphocytes 1.7 thou/uL (1.20-3.40); #Monocytes 1.3 thou/uL (0.11-0.59); #Neutrophils 8.1 thou/uL (1.40-6.50); %Basophils 0.2 % (0.0-1.0); %Eosinophils 2.8 % (0.0-10.0); %Lymphocytes 15.1 % (21.0-51.0); %Monocytes 11.3 % (0.0-10.0); %Neutrophils 70.6 % (42.0-75.0); Hemoglobin 10.3 g/dL (14.0-18.0); Mean Corpuscular HGB CONC 33.2 g/dL (32.0-36.0); Mean Corpuscular Hemoglobin 31.2 pg (27.0-31.0); Mean Corpuscular Volume 93.8 fL (78.0-98.0); Mean Platelet Volume 8.2 fL (7.4-10.4); Platelet Count 207 thou/uL (130-400); RBC Distribution Width 12.3 % (11.5-14.5); Red Blood Cell (RBC) Count 3.31 mill/uL (4.70-6.10); White Blood Cell (WBC) Count 11.4 thou/uL (4.8-10.8)
[2020-09-20 13:09] LABS: ALT (SGPT) 14 U/L (8-55); AST (SGOT) 26 U/L (5-34); Albumin 3.7 g/dL (3.4-4.8); Alkaline Phosphatase 91 U/L (40-110); Anion Gap 12 mmol/L (10-20); BUN (Urea Nitrogen) 28 mg/dL (8.4-25.7); Bilirubin, Total 0.4 mg/dL (0.2-1.2); Calc. Creatinine Clearance 0 mL/min (70-130); Carbon Dioxide 27 mmol/L (23-31); Chloride 105 mmol/L (98-107); Glucose 103 mg/dL (83-110); Lipase 13 U/L (8-78); Potassium 4.2 mmol/L (3.5-5.1); Protein, Total 6.7 g/dL (5.8-8.1); Sodium 140 mmol/L (136-145)
[2020-09-20 14:36] LABS: Bilirubin Negative (Negative); Blood, Urine Negative (Negative); Clarity Clear (Clear); Glucose, Urine (Dipstick) Normal (Negative); Ketone, Urine Negative (Negative); Leukocyte Negative Leu/uL (Negative); Nitrite Negative (Negative); Protein, Urine (Dipstick) Negative (Neg-Trace); Specific Gravity, Urine 1.024 (1.002-1.036); Urobilinogen Normal mg/dL (Less than 2)
== END 2020-09-20 15:59 | disposition home or self-care (01) ==
LOC: ERS 11:15
DX: D64.9 Anemia, unspecified (principal); W19.XXXA Unspecified fall, initial encounter; R29.6 Repeated falls; E78.00 Pure hypercholesterolemia, unspecified; I10 Essential (primary) hypertension; E78.5 Hyperlipidemia, unspecified
CPT/HCPCS: 36415; 71045; 71275; 74174; 80053; 81003; 83605; 83690; 83880; 84484; 85025; Q9967

== ENCOUNTER 2020-12-05 20:37 | Inpatient (IN) | payer MEDICARE ==
[2020-12-06 02:52] VITALS: BMI 30.8
[2020-12-10 16:19] VITALS: BP 117/76; TEMP 98.1
== END 2020-12-10 17:56 | disposition home health service (06) | DRG 917 ==
LOC: ERS 20:37 → 2SE 12-06 00:56 → OBSVTOIN 12-07 14:52
PROVIDERS: ADMIT Internal Medicine; ATTEND Internal Medicine
DX: T48.201A Poisoning by unspecified drugs acting on muscles, accidental (unintentional), initial encounter (principal); G92 Toxic encephalopathy; I21.A1 Myocardial infarction type 2; I47.1 Supraventricular tachycardia; I50.22 Chronic systolic (congestive) heart failure; Z20.822 Contact with and (suspected) exposure to COVID-19; E78.5 Hyperlipidemia, unspecified; I49.5 Sick sinus syndrome; Z96.652 Presence of left artificial knee joint; Z96.641 Presence of right artificial hip joint; I25.10 Atherosclerotic heart disease of native coronary artery without angina pectoris; I11.0 Hypertensive heart disease with heart failure; I25.5 Ischemic cardiomyopathy; E78.00 Pure hypercholesterolemia, unspecified; I16.0 Hypertensive urgency; M62.838 Other muscle spasm; G93.89 Other specified disorders of brain; T40.2X1A Poisoning by other opioids, accidental (unintentional), initial encounter; D64.9 Anemia, unspecified; M17.11 Unilateral primary osteoarthritis, right knee; Z95.0 Presence of cardiac pacemaker; Z90.49 Acquired absence of other specified parts of digestive tract; Z79.82 Long term (current) use of aspirin; Z79.899 Other long term (current) drug therapy
CPT/HCPCS: 36415; 36416; 70450; 71045; 74177; 80048; 80053; 80306; 80307; 81003; 82553; 83735; 84484; 85025; 93005; 93010; 93306; 95712; 95819; 95957; 96374; G0378; Q9967

== ENCOUNTER 2021-09-25 10:24 | Outpatient (CLI) | payer MEDICARE ==
[2021-09-25 12:28] LABS: Hemoglobin 10.6 g/dL (13.5-17.5); Mean Corpuscular HGB CONC 31.3 g/dL (32.0-36.0); Mean Corpuscular Hemoglobin 29.7 pg (27.0-33.0); Mean Platelet Volume 11.3 fl (7.4-10.4); Platelet Count 206 10x3/uL (150-450); RBC Distribution Width 14.3 % (11.5-14.5); Red Blood Cell (RBC) Count 3.57 10x6/uL (4.32-5.72); White Blood Cell (WBC) Count 8.3 10x3/uL (3.5-10.5)
[2021-09-25 12:48] LABS: Anion Gap 15 mmol/L (10-20); BUN (Urea Nitrogen) 22 mg/dL (8.4-25.7); Calc. Creatinine Clearance 0 mL/min (70-130); Carbon Dioxide 27 mmol/L (23-31); Chloride 105 mmol/L (98-107); Glucose 79 mg/dL (83-110); Potassium 5.1 mmol/L (3.5-5.1); Sodium 142 mmol/L (136-145)
[2021-09-25 19:08] LABS: SARS-CoV-2 PCR by NAA Not Detected (NotDetected)
== END 2021-09-25 10:25 | disposition home or self-care (01) ==
LOC: LABBT 10:24
PROVIDERS: ATTEND Internal Medicine Cardiovascular Disease
DX: Z01.812 Encounter for preprocedural laboratory examination (principal); Z20.822 Contact with and (suspected) exposure to COVID-19
CPT/HCPCS: 80048; 85027; U0003; U0005

== ENCOUNTER 2021-09-30 07:07 | Day surgery (SDC) | payer MEDICARE ==
[2021-09-29 09:43] VITALS: BMI 30.5
[2021-09-30 08:39] LABS: INR-International Normal Ratio 1.1; PTT 43.9 sec (22.9-36.1); Prothrombin Time 13.9 sec (12.0-14.7)
[2021-09-30] MEDS ORDERED: PROPOFOL 20 ML ONE (09:13)
[2021-09-30] MEDS ORDERED: Glycopyrrolate 0.2 MG/ML 5 ML SYRINGE ONE (09:22)
[2021-09-30] MEDS ORDERED: Midazolam HCl 2 mg/2 ml Vial ONE (09:24)
[2021-09-30] MEDS ORDERED: fentaNYL Citrate/PF 100 MCG/2 ML SYRINGE ONE (09:25)
[2021-09-30] MEDS ORDERED: Ketamine 50 MG/ML (10ML VIAL) ONE (09:25)
[2021-09-30] MEDS ORDERED: Phenylephrine 10 MG/ML VIAL ONE (09:25)
[2021-09-30] MEDS ORDERED: Propofol 500 MG/50 ML VIAL ONE (09:25)
== END 2021-09-30 11:51 | disposition home or self-care (01) ==
LOC: SDC 07:07
PROVIDERS: ATTEND Internal Medicine Cardiovascular Disease
PROC: B246ZZ4 Ultrasonography of Right and Left Heart, Transesophageal (ICD-10-PCS; principal; 2021-09-30)
DX: I48.0 Paroxysmal atrial fibrillation (principal); I71.4 Abdominal aortic aneurysm, without rupture; I11.9 Hypertensive heart disease without heart failure; I08.0 Rheumatic disorders of both mitral and aortic valves; I25.10 Atherosclerotic heart disease of native coronary artery without angina pectoris; R55 Syncope and collapse; S00.03XA Contusion of scalp, initial encounter; I44.7 Left bundle-branch block, unspecified; E78.5 Hyperlipidemia, unspecified; Z79.01 Long term (current) use of anticoagulants; Z79.02 Long term (current) use of antithrombotics/antiplatelets; Z79.899 Other long term (current) drug therapy; Z95.0 Presence of cardiac pacemaker; Z95.1 Presence of aortocoronary bypass graft; Z95.818 Presence of other cardiac implants and grafts; W19.XXXA Unspecified fall, initial encounter
CPT/HCPCS: 36415; 70450; 85610; 85730; 93312; J2250; J2370; J2704

== ENCOUNTER 2021-10-29 18:53 | Emergency (ER) | payer MEDICARE | END 2021-10-29 22:01 | disposition home or self-care (01) | LOC: ERS 18:53 | DX: S52.571A Other intraarticular fracture of lower end of right radius, initial encounter for closed fracture (principal); S52.601A Unspecified fracture of lower end of right ulna, initial encounter for closed fracture; I10 Essential (primary) hypertension; E78.5 Hyperlipidemia, unspecified; F17.220 Nicotine dependence, chewing tobacco, uncomplicated; W19.XXXA Unspecified fall, initial encounter | CPT/HCPCS: 29125 ==

== ENCOUNTER 2022-06-22 02:52 | Emergency (ER) | payer MEDICARE ==
[2022-06-22 03:41] LABS: #Eosinphils 0.3 thou/uL (0.0-0.7); #Neutrophils 3.8 thou/uL (1.40-6.50); %Basophils 0.6 % (0.0-1.0); %Eosinophils 4.5 % (0.0-10.0); %Lymphocytes 27.6 % (21.0-51.0); %Monocytes 13.8 % (0.0-10.0); %Neutrophils 53.4 % (42.0-75.0); Hemoglobin 10.5 g/dL (14.0-18.0); Mean Corpuscular HGB CONC 32.1 g/dL (32.0-36.0); Mean Corpuscular Hemoglobin 31.4 pg (27.0-31.0); Mean Corpuscular Volume 97.8 fl (78.0-98.0); Mean Platelet Volume 8.2 fL (7.4-10.4); Platelet Count 187 10x3/uL (130-400); RBC Distribution Width 12.8 % (11.5-14.5); Red Blood Cell (RBC) Count 3.35 mill/uL (4.70-6.10); White Blood Cell (WBC) Count 7.1 10x3/uL (4.8-10.8)
[2022-06-22] MEDS ORDERED: HYDROcodone/Acetaminophen 10/325 mg Tablet ONE (03:54)
[2022-06-22 03:56] LABS: ALT (SGPT) 10 U/L (8-55); AST (SGOT) 17 U/L (5-34); Albumin 3.8 g/dL (3.4-4.8); Alkaline Phosphatase 89 U/L (40-110); Anion Gap 11 mmol/L (10-20); BUN (Urea Nitrogen) 24 mg/dL (8.4-25.7); Bilirubin, Total 0.3 mg/dL (0.2-1.2); Calc. Creatinine Clearance 0 mL/min (70-130); Calcium 8.8 mg/dL (7.8-10.44); Carbon Dioxide 29 mmol/L (23-31); Chloride 104 mmol/L (98-107); Estimated GFR 71; Globulin 3.1 g/dL (2.4-3.5); Glucose 107 mg/dL (83-110); Potassium 4.1 mmol/L (3.5-5.1); Protein, Total 6.9 g/dL (5.8-8.1); Sodium 140 mmol/L (136-145)
[2022-06-22] MEDS ORDERED: Boostrix 0.5 ML (Tdap) VIAL (>/=7 yrs of age) ONE (03:57)
[2022-06-22] MEDS ORDERED: Bacitracin 1 PK ONE (05:19)
== END 2022-06-22 06:30 | disposition home or self-care (01) ==
LOC: ERS 02:52
DX: S01.01XA Laceration without foreign body of scalp, initial encounter (principal); I10 Essential (primary) hypertension; E78.00 Pure hypercholesterolemia, unspecified; F17.220 Nicotine dependence, chewing tobacco, uncomplicated; W18.30XA Fall on same level, unspecified, initial encounter; Y93.01 Activity, walking, marching and hiking; Y92.090 Kitchen in other non-institutional residence as the place of occurrence of the external cause; Z23 Encounter for immunization
CPT/HCPCS: 12004; 70450; 72125; 80053; 85025; 90471; 90715; 93005

== ENCOUNTER 2022-07-17 18:36 | Inpatient (IN) | payer MEDICARE ==
[2022-07-17 19:08] LABS: #Eosinphils 0.1 thou/uL (0.0-0.7); #Lymphocytes 1.1 thou/uL (1.20-3.40); #Neutrophils 11.4 thou/uL (1.40-6.50); %Basophils 0.2 % (0.0-1.0); %Eosinophils 0.5 % (0.0-10.0); %Monocytes 7.6 % (0.0-10.0); %Neutrophils 83.8 % (42.0-75.0); Hemoglobin 11.7 g/dL (14.0-18.0); Mean Corpuscular HGB CONC 33.8 g/dL (32.0-36.0); Mean Corpuscular Hemoglobin 32.6 pg (27.0-31.0); Mean Corpuscular Volume 96.4 fl (78.0-98.0); Mean Platelet Volume 7.6 fL (7.4-10.4); Platelet Count 254 10x3/uL (130-400); RBC Distribution Width 12.4 % (11.5-14.5); Red Blood Cell (RBC) Count 3.59 mill/uL (4.70-6.10); White Blood Cell (WBC) Count 13.6 10x3/uL (4.8-10.8)
[2022-07-17 19:30] LABS: Prothrombin Time 13.2 sec (12.0-14.7)
[2022-07-17 19:31] LABS: ALT (SGPT) 13 U/L (8-55); AST (SGOT) 20 U/L (5-34); Alkaline Phosphatase 89 U/L (40-110); Anion Gap 13 mmol/L (10-20); BUN (Urea Nitrogen) 25 mg/dL (8.4-25.7); Bilirubin, Total 0.5 mg/dL (0.2-1.2); Calc. Creatinine Clearance 0 mL/min (70-130); Carbon Dioxide 26 mmol/L (23-31); Chloride 104 mmol/L (98-107); Estimated GFR 56; Globulin 3.3 g/dL (2.4-3.5); Glucose 113 mg/dL (83-110); Lipase 14 U/L (8-78); Potassium 3.8 mmol/L (3.5-5.1); Protein, Total 7.3 g/dL (5.8-8.1); Sodium 139 mmol/L (136-145)
[2022-07-17 19:32] LABS: PTT 37.4 sec (22.9-36.1)
[2022-07-17] MEDS ORDERED: Morphine 4 MG/ML VIAL ONE (20:13)
[2022-07-17] MEDS ORDERED: Morphine 2 MG/ML VIAL ONE (20:15)
[2022-07-17 21:41] LABS: Bilirubin 1+ (Negative); Blood, Urine Negative (Negative); Clarity Clear (Clear); Glucose, Urine (Dipstick) Normal (Negative); Ketone, Urine Negative (Negative); Leukocyte Negative Leu/uL (Negative); Nitrite Negative (Negative); Protein, Urine (Dipstick) 20 mg/dL (Neg-Trace); Urobilinogen 6 mg/dL (Less than 2); pH, Urine 5.5 (5.0-9.0)
[2022-07-17 21:42] LABS: Specific Gravity, Urine 1.046 (1.002-1.036)
[2022-07-17] MEDS ORDERED: Polyethylene Glycol 3350 17 GM Packet PO PRN (21:45)
[2022-07-17 23:49] VITALS: BMI 28.5
[2022-07-18] MEDS: Acetaminophen 325 MG TAB PO PRN ×2 (00:03→07:28)
[2022-07-18] MEDS: Piperacillin/Tazobactam 3.375 GM in Sodium Chloride 0.9% 100 ML IVPB SCH ×3 (01:11→18:01)
[2022-07-18] MEDS: HYDROcodone/Acetaminophen 7.5/325 mg Tablet PO PRN ×5 (03:45→20:52)
[2022-07-18] MEDS ORDERED: Furosemide 20 MG TAB PO PRN (05:26)
[2022-07-18 08:22] LABS: #Eosinphils 0.3 thou/uL (0.0-0.7); #Lymphocytes 1.2 thou/uL (1.20-3.40); #Monocytes 0.8 thou/uL (0.11-0.59); #Neutrophils 9.3 thou/uL (1.40-6.50); %Basophils 0.2 % (0.0-1.0); %Eosinophils 2.7 % (0.0-10.0); %Lymphocytes 10.6 % (21.0-51.0); %Monocytes 6.8 % (0.0-10.0); %Neutrophils 79.8 % (42.0-75.0); Hemoglobin 9.4 g/dL (14.0-18.0); Mean Corpuscular HGB CONC 33.3 g/dL (32.0-36.0); Mean Corpuscular Hemoglobin 32.3 pg (27.0-31.0); Mean Platelet Volume 7.8 fL (7.4-10.4); Platelet Count 209 10x3/uL (130-400); RBC Distribution Width 12.4 % (11.5-14.5); Red Blood Cell (RBC) Count 2.92 mill/uL (4.70-6.10); White Blood Cell (WBC) Count 11.6 10x3/uL (4.8-10.8)
[2022-07-18 08:43] LABS: Anion Gap 14 mmol/L (10-20); BUN (Urea Nitrogen) 24 mg/dL (8.4-25.7); Calc. Creatinine Clearance 75 mL/min (70-130); Calcium 8.4 mg/dL (7.8-10.44); Carbon Dioxide 24 mmol/L (23-31); Chloride 104 mmol/L (98-107); Estimated GFR 75; Glucose 110 mg/dL (83-110); Potassium 3.7 mmol/L (3.5-5.1); Sodium 138 mmol/L (136-145)
[2022-07-18] MEDS: Atorvastatin Calcium 40 MG TAB PO SCH (09:17)
[2022-07-18] MEDS: Aspirin Chewable 81 MG TAB PO SCH (09:17)
[2022-07-18] MEDS: Pregabalin 75 MG CAP PO SCH ×2 (09:18→20:52)
[2022-07-18] MEDS: Ondansetron PF 4 MG/2 ML Vial IVP PRN (20:52)
[2022-07-18] MEDS: Carvedilol 25 MG TAB PO SCH (20:52)
[2022-07-19] MEDS: Piperacillin/Tazobactam 3.375 GM in Sodium Chloride 0.9% 100 ML IVPB SCH ×3 (01:23→17:18)
[2022-07-19] MEDS: HYDROcodone/Acetaminophen 7.5/325 mg Tablet PO PRN ×5 (01:23→21:39)
[2022-07-19 06:57] LABS: Hemoglobin 9.1 g/dL (14.0-18.0); Mean Corpuscular HGB CONC 32.4 g/dL (32.0-36.0); Mean Corpuscular Hemoglobin 31.7 pg (27.0-31.0); Mean Corpuscular Volume 97.6 fl (78.0-98.0); Mean Platelet Volume 8.2 fL (7.4-10.4); Platelet Count 175 10x3/uL (130-400); RBC Distribution Width 12.3 % (11.5-14.5); Red Blood Cell (RBC) Count 2.88 mill/uL (4.70-6.10); White Blood Cell (WBC) Count 10.9 10x3/uL (4.8-10.8)
[2022-07-19] MEDS: Ondansetron PF 4 MG/2 ML Vial IVP PRN (08:25)
[2022-07-19] MEDS: Aspirin Chewable 81 MG TAB PO SCH (09:26)
[2022-07-19] MEDS: Pregabalin 75 MG CAP PO SCH ×2 (09:26→20:17)
[2022-07-19] MEDS: Atorvastatin Calcium 40 MG TAB PO SCH (09:26)
[2022-07-19] MEDS: Carvedilol 25 MG TAB PO SCH ×2 (09:27→20:17)
[2022-07-20] MEDS: HYDROcodone/Acetaminophen 7.5/325 mg Tablet PO PRN ×5 (01:28→21:40)
[2022-07-20] MEDS: Piperacillin/Tazobactam 3.375 GM in Sodium Chloride 0.9% 100 ML IVPB SCH ×3 (01:29→17:30)
[2022-07-20] MEDS: Ondansetron PF 4 MG/2 ML Vial IVP PRN (04:40)
[2022-07-20] MEDS: Aspirin Chewable 81 MG TAB PO SCH (09:12)
[2022-07-20] MEDS: Carvedilol 25 MG TAB PO SCH ×2 (09:12→21:01)
[2022-07-20] MEDS: Pregabalin 75 MG CAP PO SCH ×2 (09:12→21:01)
[2022-07-20] MEDS: Atorvastatin Calcium 40 MG TAB PO SCH (09:14)
[2022-07-21] MEDS: HYDROcodone/Acetaminophen 7.5/325 mg Tablet PO PRN ×5 (01:23→20:49)
[2022-07-21] MEDS: Piperacillin/Tazobactam 3.375 GM in Sodium Chloride 0.9% 100 ML IVPB SCH ×2 (01:32→10:40)
[2022-07-21] MEDS ORDERED: FLU VACC QS2022-23(65YR UP)/PF 240 MCG/0.7 ML SYRINGE IM ONE (06:15)
[2022-07-21] MEDS: Carvedilol 25 MG TAB PO SCH ×2 (09:16→20:50)
[2022-07-21] MEDS: Aspirin Chewable 81 MG TAB PO SCH (09:16)
[2022-07-21] MEDS: Atorvastatin Calcium 40 MG TAB PO SCH (09:16)
[2022-07-21] MEDS: Pregabalin 75 MG CAP PO SCH ×2 (09:17→20:50)
[2022-07-21] MEDS: Amoxicillin/Potassium Clav 875 MG TAB PO SCH (20:49)
[2022-07-22] MEDS: HYDROcodone/Acetaminophen 7.5/325 mg Tablet PO PRN ×3 (02:02→15:01)
[2022-07-22 07:19] LABS: Hemoglobin 10.1 g/dL (14.0-18.0); Mean Corpuscular Hemoglobin 32.1 pg (27.0-31.0); Mean Corpuscular Volume 97.2 fl (78.0-98.0); Mean Platelet Volume 8.1 fL (7.4-10.4); Platelet Count 222 10x3/uL (130-400); RBC Distribution Width 12.4 % (11.5-14.5); Red Blood Cell (RBC) Count 3.14 mill/uL (4.70-6.10); White Blood Cell (WBC) Count 6.3 10x3/uL (4.8-10.8)
[2022-07-22 08:02] LABS: Anion Gap 11 mmol/L (10-20); BUN (Urea Nitrogen) 18 mg/dL (8.4-25.7); Calc. Creatinine Clearance 87 mL/min (70-130); Calcium 8.8 mg/dL (7.8-10.44); Carbon Dioxide 28 mmol/L (23-31); Chloride 101 mmol/L (98-107); Estimated GFR 86; Glucose 87 mg/dL (83-110); Potassium 3.9 mmol/L (3.5-5.1); Sodium 136 mmol/L (136-145)
[2022-07-22] MEDS: Carvedilol 25 MG TAB PO SCH ×2 (08:32→21:15)
[2022-07-22] MEDS: Aspirin Chewable 81 MG TAB PO SCH (08:33)
[2022-07-22] MEDS: Pregabalin 75 MG CAP PO SCH ×2 (08:33→21:14)
[2022-07-22] MEDS: Atorvastatin Calcium 40 MG TAB PO SCH (08:33)
[2022-07-22] MEDS: Amoxicillin/Potassium Clav 875 MG TAB PO SCH ×2 (08:33→21:14)
[2022-07-22] MEDS ORDERED: Furosemide 40 MG TAB PO PRN (15:35)
[2022-07-22] MEDS ORDERED: Pregabalin 75 MG CAP PO SCH (15:45)
[2022-07-23] MEDS: HYDROcodone/Acetaminophen 7.5/325 mg Tablet PO PRN ×2 (02:20→08:39)
[2022-07-23] MEDS: Atorvastatin Calcium 40 MG TAB PO SCH (08:38)
[2022-07-23] MEDS: Carvedilol 25 MG TAB PO SCH (08:38)
[2022-07-23] MEDS: Aspirin Chewable 81 MG TAB PO SCH (08:38)
[2022-07-23] MEDS: Pregabalin 75 MG CAP PO SCH ×2 (08:38→14:21)
[2022-07-23 14:20] VITALS: BP 106/57; TEMP 97.8
== END 2022-07-23 15:00 | DRG 392 ==
LOC: ERS 18:36 → ERHOLD 21:30 → T4-B 23:09 → OBSVTOIN 07-18 13:26
PROVIDERS: ADMIT Internal Medicine; ATTEND Family Medicine
DX: K52.9 Noninfective gastroenteritis and colitis, unspecified (principal); I50.42 Chronic combined systolic (congestive) and diastolic (congestive) heart failure; I11.0 Hypertensive heart disease with heart failure; E78.5 Hyperlipidemia, unspecified; I25.10 Atherosclerotic heart disease of native coronary artery without angina pectoris; F17.220 Nicotine dependence, chewing tobacco, uncomplicated; E86.0 Dehydration; Z96.652 Presence of left artificial knee joint; Z96.641 Presence of right artificial hip joint; Z79.899 Other long term (current) drug therapy; Z79.82 Long term (current) use of aspirin; Z95.0 Presence of cardiac pacemaker; Z95.1 Presence of aortocoronary bypass graft; Z90.49 Acquired absence of other specified parts of digestive tract
CPT/HCPCS: 36415; 51701; 70450; 71045; 74177; 80048; 80053; 81003; 83605; 83690; 83880; 84484; 85025; 85027; 85610; 85730; 87040; 87086; 90471; 90662; 93005; 96361; 96365; 96375; 96376; G0008; G0378; J2270; J2272; J2405; J2543; J3490; Q9967; U0003; U0005

== ENCOUNTER 2022-09-24 07:05 | Inpatient (IN) | payer MEDICARE ==
[2022-09-24] MEDS ORDERED: fentaNYL 50 mcg/mL 1 mL Vial ONE ×2 (07:52→09:25)
[2022-09-24 08:41] LABS: #Lymphocytes 1.4 thou/uL (1.20-3.40); #Monocytes 0.9 thou/uL (0.11-0.59); #Neutrophils 8.9 thou/uL (1.40-6.50); %Eosinophils 0.2 % (0.0-10.0); %Lymphocytes 12.5 % (21.0-51.0); %Monocytes 8.3 % (0.0-10.0); Hemoglobin 13.3 g/dL (14.0-18.0); Mean Corpuscular HGB CONC 31.9 g/dL (32.0-36.0); Mean Corpuscular Hemoglobin 29.2 pg (27.0-31.0); Mean Corpuscular Volume 91.4 fl (78.0-98.0); Mean Platelet Volume 8.7 fL (7.4-10.4); Platelet Count 249 10x3/uL (130-400); RBC Distribution Width 13.9 % (11.5-14.5); Red Blood Cell (RBC) Count 4.56 mill/uL (4.70-6.10); White Blood Cell (WBC) Count 11.2 10x3/uL (4.8-10.8)
[2022-09-24 08:58] LABS: ALT (SGPT) 8 U/L (8-55); AST (SGOT) 13 U/L (5-34); Albumin 4.1 g/dL (3.4-4.8); Alkaline Phosphatase 122 U/L (40-110); Anion Gap 16 mmol/L (10-20); BUN (Urea Nitrogen) 13 mg/dL (8.4-25.7); Bilirubin, Total 0.7 mg/dL (0.2-1.2); Calc. Creatinine Clearance 0 mL/min (70-130); Calcium 9.1 mg/dL (7.8-10.44); Carbon Dioxide 24 mmol/L (23-31); Chloride 100 mmol/L (98-107); Estimated GFR 85; Globulin 3.4 g/dL (2.4-3.5); Glucose 118 mg/dL (83-110); Lipase 25 U/L (8-78); Potassium 3.4 mmol/L (3.5-5.1); Protein, Total 7.5 g/dL (5.8-8.1); Sodium 137 mmol/L (136-145)
[2022-09-24 09:16] LABS: CKMB 1.4 ng/mL (0-6.6)
[2022-09-24] MEDS ORDERED: Piperacillin/Tazobactam 4.5 GM VIAL ONE (10:19)
[2022-09-24] MEDS ORDERED: Calcium Carbonate 500 MG ChewTAB PO PRN (10:37)
[2022-09-24] MEDS ORDERED: Acetaminophen 325 MG TAB PO PRN (10:37)
[2022-09-24] MEDS ORDERED: Electrolyte Replacement Protocol 1 EACH FS SCH (10:45)
[2022-09-24] MEDS ORDERED: Iopamidol 370 76% 100 ML VIAL ONE (10:52)
[2022-09-24] MEDS ORDERED: Electrolyte Replacement Protocol FS PRN (11:30)
[2022-09-24] MEDS ORDERED: Carvedilol 25 MG TAB PO SCH (11:30)
[2022-09-24] MEDS ORDERED: Furosemide 40 MG/4 ML VIAL SLOW IVP SCH (11:30)
[2022-09-24 11:45] VITALS: BMI 28.0
[2022-09-24] MEDS: HYDROcodone/Acetaminophen 5/325 mg Tablet PO PRN ×3 (11:55→20:47)
[2022-09-24] MEDS: Ondansetron PF 4 MG/2 ML Vial IVP PRN (12:01)
[2022-09-24] MEDS: Potassium Chloride 20 MEQ in Premix Bag 1 BAG IVPB SCH ×2 (12:09→16:34)
[2022-09-24 12:10] LABS: Troponin I 0.055 ng/mL (< 0.028)
[2022-09-24 14:47] LABS: Troponin I 0.041 ng/mL (< 0.028)
[2022-09-24] MEDS: Carvedilol 25 MG TAB PO SCH (16:35)
[2022-09-24] MEDS: hydrALAZINE 20 MG/ML VIAL SLOW IVP PRN ×2 (16:36→20:50)
[2022-09-25] MEDS: HYDROcodone/Acetaminophen 5/325 mg Tablet PO PRN ×4 (00:36→11:56)
[2022-09-25 04:23] LABS: #Lymphocytes 2.1 thou/uL (1.20-3.40); #Monocytes 1.3 thou/uL (0.11-0.59); #Neutrophils 7.9 thou/uL (1.40-6.50); %Basophils 0.1 % (0.0-1.0); %Eosinophils 0.1 % (0.0-10.0); %Neutrophils 69.7 % (42.0-75.0); Mean Corpuscular Hemoglobin 30.2 pg (27.0-31.0); Mean Corpuscular Volume 91.5 fl (78.0-98.0); Mean Platelet Volume 8.7 fL (7.4-10.4); Platelet Count 276 10x3/uL (130-400); RBC Distribution Width 14.1 % (11.5-14.5); Red Blood Cell (RBC) Count 4.31 mill/uL (4.70-6.10); White Blood Cell (WBC) Count 11.3 10x3/uL (4.8-10.8)
[2022-09-25 04:37] LABS: Anion Gap 16 mmol/L (10-20); BUN (Urea Nitrogen) 18 mg/dL (8.4-25.7); Calc. Creatinine Clearance 78 mL/min (70-130); Calcium 9.2 mg/dL (7.8-10.44); Carbon Dioxide 25 mmol/L (23-31); Chloride 98 mmol/L (98-107); Estimated GFR 79; Glucose 100 mg/dL (83-110); Potassium 3.5 mmol/L (3.5-5.1); Sodium 135 mmol/L (136-145)
[2022-09-25] MEDS: hydrALAZINE 20 MG/ML VIAL SLOW IVP PRN ×2 (04:44→08:22)
[2022-09-25] MEDS ORDERED: Potassium Chloride 20 MEQ TAB PO SCH (08:00)
[2022-09-25] MEDS: Ondansetron PF 4 MG/2 ML Vial IVP PRN ×2 (08:14→14:31)
[2022-09-25] MEDS: Carvedilol 25 MG TAB PO SCH ×2 (08:22→18:00)
[2022-09-25] MEDS ORDERED: Furosemide 40 MG TAB PO SCH (12:30)
[2022-09-25] MEDS: HYDROcodone/Acetaminophen 10/325 mg Tablet PO PRN ×3 (14:30→23:42)
[2022-09-25] MEDS: Pregabalin 75 MG CAP PO SCH (20:33)
[2022-09-25] MEDS: Zolpidem Tartrate 5 MG TAB PO SCH (20:34)
[2022-09-25] MEDS ORDERED: Non-Formulary Item 1 EACH (Zolpidem Tartrate [Zolpidem Tartrate] 10 MG Tablet) PO SCH (21:00)
[2022-09-26] MEDS ORDERED: Furosemide 40 MG TAB PO SCH (07:30)
[2022-09-26] MEDS: Carvedilol 25 MG TAB PO SCH (07:43)
[2022-09-26] MEDS: HYDROcodone/Acetaminophen 10/325 mg Tablet PO PRN ×2 (07:50→21:16)
[2022-09-26] MEDS: Atorvastatin Calcium 40 MG TAB PO SCH (09:49)
[2022-09-26] MEDS: Pregabalin 75 MG CAP PO SCH ×2 (09:49→21:13)
[2022-09-26] MEDS: Aspirin Chewable 81 MG TAB PO SCH (09:49)
[2022-09-26] MEDS ORDERED: Sodium Chloride 0.9% 500 ML IV SCH (13:30)
[2022-09-26] MEDS: Zolpidem Tartrate 5 MG TAB PO SCH (21:13)
[2022-09-27] MEDS: HYDROcodone/Acetaminophen 10/325 mg Tablet PO PRN ×5 (03:41→21:40)
[2022-09-27 04:24] LABS: #Eosinphils 0.1 thou/uL (0.0-0.7); #Lymphocytes 2.2 thou/uL (1.20-3.40); %Basophils 0.5 % (0.0-1.0); %Eosinophils 1.3 % (0.0-10.0); %Lymphocytes 26.1 % (21.0-51.0); %Monocytes 11.8 % (0.0-10.0); %Neutrophils 60.4 % (42.0-75.0); Hemoglobin 11.4 g/dL (14.0-18.0); Mean Corpuscular HGB CONC 31.9 g/dL (32.0-36.0); Mean Corpuscular Hemoglobin 30.1 pg (27.0-31.0); Mean Corpuscular Volume 94.3 fl (78.0-98.0); Mean Platelet Volume 8.5 fL (7.4-10.4); Platelet Count 233 10x3/uL (130-400); RBC Distribution Width 13.9 % (11.5-14.5); Red Blood Cell (RBC) Count 3.78 mill/uL (4.70-6.10); White Blood Cell (WBC) Count 8.3 10x3/uL (4.8-10.8)
[2022-09-27 04:39] LABS: Anion Gap 13 mmol/L (10-20); BUN (Urea Nitrogen) 35 mg/dL (8.4-25.7); Calc. Creatinine Clearance 65 mL/min (70-130); Carbon Dioxide 29 mmol/L (23-31); Chloride 99 mmol/L (98-107); Estimated GFR 63; Glucose 111 mg/dL (83-110); Potassium 3.8 mmol/L (3.5-5.1); Sodium 137 mmol/L (136-145)
[2022-09-27] MEDS: Aspirin Chewable 81 MG TAB PO SCH (08:28)
[2022-09-27] MEDS: Pregabalin 75 MG CAP PO SCH ×2 (08:28→21:39)
[2022-09-27] MEDS: Atorvastatin Calcium 40 MG TAB PO SCH (08:28)
[2022-09-27] MEDS ORDERED: PROPOFOL 200 MG/20 ML VIAL ONE (12:02)
[2022-09-27] MEDS ORDERED: Lidocaine 1% PF 5 ML VIAL ONE (12:02)
[2022-09-27] MEDS: Carvedilol 3.125 MG TAB PO SCH (17:08)
[2022-09-27] MEDS: Zolpidem Tartrate 5 MG TAB PO SCH (21:41)
[2022-09-28] MEDS: Aspirin Chewable 81 MG TAB PO SCH (08:38)
[2022-09-28] MEDS: HYDROcodone/Acetaminophen 10/325 mg Tablet PO PRN ×3 (08:39→17:07)
[2022-09-28] MEDS: Carvedilol 3.125 MG TAB PO SCH ×2 (08:39→17:04)
[2022-09-28] MEDS: Atorvastatin Calcium 40 MG TAB PO SCH (08:39)
[2022-09-28] MEDS: Pregabalin 75 MG CAP PO SCH (08:39)
[2022-09-28 15:14] VITALS: BP 108/60; TEMP 98
== END 2022-09-28 18:55 | disposition home or self-care (01) | DRG 391 ==
LOC: ERS 07:05 → 2NO 10:13
PROVIDERS: ADMIT Family Medicine; ATTEND Family Medicine
PROC: B246ZZ4 Ultrasonography of Right and Left Heart, Transesophageal (ICD-10-PCS; principal; 2022-09-27)
DX: K57.32 Diverticulitis of large intestine without perforation or abscess without bleeding (principal); I50.43 Acute on chronic combined systolic (congestive) and diastolic (congestive) heart failure; I71.02 Dissection of abdominal aorta; I11.0 Hypertensive heart disease with heart failure; I25.10 Atherosclerotic heart disease of native coronary artery without angina pectoris; E78.5 Hyperlipidemia, unspecified; E78.00 Pure hypercholesterolemia, unspecified; F41.9 Anxiety disorder, unspecified; Z96.641 Presence of right artificial hip joint; Z96.652 Presence of left artificial knee joint; F17.220 Nicotine dependence, chewing tobacco, uncomplicated; I16.0 Hypertensive urgency; I48.91 Unspecified atrial fibrillation; I49.5 Sick sinus syndrome; E87.6 Hypokalemia; I34.0 Nonrheumatic mitral (valve) insufficiency; Z95.5 Presence of coronary angioplasty implant and graft; Z85.46 Personal history of malignant neoplasm of prostate; Z95.1 Presence of aortocoronary bypass graft; Z95.0 Presence of cardiac pacemaker; Z90.49 Acquired absence of other specified parts of digestive tract; Z98.890 Other specified postprocedural states; Z79.82 Long term (current) use of aspirin; Z79.899 Other long term (current) drug therapy
CPT/HCPCS: 36415; 70450; 71045; 71275; 74174; 74177; 80048; 80053; 82553; 83690; 83880; 84484; 85025; 86140; 93005; 93312; 96365; 96374; 96376; J0360; J1650; J1940; J2405; J2543; J2704; J3010; J3480; J7030; Q9967

== ENCOUNTER 2022-12-07 11:20 | Inpatient (IN) | payer MEDICARE ==
[2022-12-07] MEDS ORDERED: Ondansetron PF 4 MG/2 ML Vial ONE ×2 (11:45→14:02)
[2022-12-07] MEDS ORDERED: Iopamidol 370 76% 100 ML VIAL ONE (11:56)
[2022-12-07 12:01] LABS: #Eosinphils 0.2 thou/uL (0.0-0.7); #Monocytes 0.7 thou/uL (0.11-0.59); #Neutrophils 4.7 thou/uL (1.40-6.50); %Basophils 0.4 % (0.0-1.0); %Lymphocytes 22.7 % (21.0-51.0); %Monocytes 9.6 % (0.0-10.0); Hemoglobin 10.8 g/dL (14.0-18.0); Mean Corpuscular HGB CONC 32.3 g/dL (32.0-36.0); Mean Corpuscular Hemoglobin 29.8 pg (27.0-31.0); Mean Corpuscular Volume 92.3 fl (78.0-98.0); Mean Platelet Volume 11.4 fL (7.4-10.4); Platelet Count 246 10x3/uL (130-400); RBC Distribution Width 14.5 % (11.5-14.5); Red Blood Cell (RBC) Count 3.62 mill/uL (4.70-6.10); White Blood Cell (WBC) Count 7.4 10x3/uL (4.8-10.8)
[2022-12-07 12:27] LABS: ALT (SGPT) 12 U/L (8-55); AST (SGOT) 32 U/L (5-34); Albumin 4.2 g/dL (3.4-4.8); Alkaline Phosphatase 109 U/L (40-110); Anion Gap 20 mmol/L (10-20); BUN (Urea Nitrogen) 31 mg/dL (8.4-25.7); Bilirubin, Total 0.6 mg/dL (0.2-1.2); Calc. Creatinine Clearance 0 mL/min (70-130); Calcium 9.7 mg/dL (7.8-10.44); Carbon Dioxide 27 mmol/L (23-31); Chloride 100 mmol/L (98-107); Estimated GFR 53; Globulin 3.9 g/dL (2.4-3.5); Glucose 105 mg/dL (83-110); Lipase 10 U/L (8-78); Potassium 4.8 mmol/L (3.5-5.1); Protein, Total 8.1 g/dL (5.8-8.1); Sodium 142 mmol/L (136-145)
[2022-12-07] MEDS ORDERED: Morphine 2 MG/ML VIAL ONE (15:00)
[2022-12-07 15:55] LABS: Troponin I Less than 0.010 ng/mL (< 0.028)
[2022-12-07] MEDS ORDERED: Ondansetron ODT 4 MG TAB PO PRN (16:15)
[2022-12-07] MEDS ORDERED: Acetaminophen 325 MG TAB PO PRN (16:15)
[2022-12-07] MEDS ORDERED: Furosemide 40 MG/4 ML VIAL SLOW IVP SCH (16:30)
[2022-12-07] MEDS ORDERED: cefTRIAXone\\ROCEPHIN 1 GM in Sodium Chloride 0.9% 100 ML IVPB SCH (16:30)
[2022-12-07] MEDS: Carvedilol 3.125 MG TAB PO SCH (17:11)
[2022-12-07 18:25] VITALS: BMI 4278.5
[2022-12-07] MEDS: HYDROcodone/Acetaminophen 10/325 mg Tablet PO PRN (19:52)
[2022-12-07] MEDS: Pregabalin 75 MG CAP PO SCH (19:52)
[2022-12-07] MEDS: Atorvastatin Calcium 40 MG TAB PO SCH (19:52)
[2022-12-07] MEDS: Famotidine/PF 20 mg/2ml Vial SLOW IVP SCH (19:52)
[2022-12-07] MEDS: Heparin 5,000 UNITS/ML VIAL SC SCH (20:00)
[2022-12-07 20:09] LABS: Troponin I Less than 0.010 ng/mL (< 0.028)
[2022-12-07] MEDS: Melatonin 3 MG TAB PO PRN (22:50)
[2022-12-08 04:52] LABS: #Eosinphils 0.2 thou/uL (0.0-0.7); #Monocytes 0.8 thou/uL (0.11-0.59); #Neutrophils 3.1 thou/uL (1.40-6.50); %Basophils 0.5 % (0.0-1.0); %Eosinophils 3.5 % (0.0-10.0); %Lymphocytes 29.8 % (21.0-51.0); %Monocytes 13.9 % (0.0-10.0); Hemoglobin 10.2 g/dL (14.0-18.0); Mean Corpuscular HGB CONC 31.5 g/dL (32.0-36.0); Mean Corpuscular Hemoglobin 29.7 pg (27.0-31.0); Mean Corpuscular Volume 94.2 fl (78.0-98.0); Mean Platelet Volume 10.6 fL (7.4-10.4); Platelet Count 212 10x3/uL (130-400); RBC Distribution Width 14.4 % (11.5-14.5); Red Blood Cell (RBC) Count 3.44 mill/uL (4.70-6.10)
[2022-12-08 05:22] LABS: Anion Gap 11 mmol/L (10-20); BUN (Urea Nitrogen) 27 mg/dL (8.4-25.7); Calc. Creatinine Clearance 62 mL/min (70-130); Calcium 9.4 mg/dL (7.8-10.44); Carbon Dioxide 33 mmol/L (23-31); Chloride 101 mmol/L (98-107); Estimated GFR 57; Glucose 91 mg/dL (83-110); Magnesium 2.2 mg/dL (1.6-2.6); Potassium 3.8 mmol/L (3.5-5.1); Sodium 141 mmol/L (136-145)
[2022-12-08] MEDS: HYDROcodone/Acetaminophen 10/325 mg Tablet PO PRN ×2 (05:59→16:44)
[2022-12-08] MEDS: Pregabalin 75 MG CAP PO SCH ×2 (09:22→19:28)
[2022-12-08] MEDS: Carvedilol 3.125 MG TAB PO SCH ×2 (09:22→16:44)
[2022-12-08] MEDS: Famotidine/PF 20 mg/2ml Vial SLOW IVP SCH ×2 (09:22→19:28)
[2022-12-08] MEDS: Aspirin Chewable 81 MG TAB PO SCH (09:22)
[2022-12-08] MEDS: Heparin 5,000 UNITS/ML VIAL SC SCH ×3 (09:23→19:28)
[2022-12-08] MEDS ORDERED: Potassium Chloride 20 MEQ TAB PO SCH (10:30)
[2022-12-08] MEDS: Morphine ER 15 MG TAB PO PRN (11:50)
[2022-12-08] MEDS: Ondansetron PF 4 MG/2 ML Vial IVP PRN (15:04)
[2022-12-08] MEDS: Senokot S 8.6-50 MG TAB PO PRN (15:14)
[2022-12-08] MEDS: Atorvastatin Calcium 40 MG TAB PO SCH (19:29)
[2022-12-08] MEDS: Melatonin 3 MG TAB PO PRN (19:29)
[2022-12-09] MEDS: Morphine ER 15 MG TAB PO PRN ×2 (00:29→13:14)
[2022-12-09 05:05] LABS: #Eosinphils 0.2 thou/uL (0.0-0.7); #Monocytes 0.6 thou/uL (0.11-0.59); #Neutrophils 3.6 thou/uL (1.40-6.50); %Basophils 0.3 % (0.0-1.0); %Eosinophils 3.4 % (0.0-10.0); %Lymphocytes 26.1 % (21.0-51.0); %Monocytes 10.5 % (0.0-10.0); %Neutrophils 59.5 % (42.0-75.0); Hemoglobin 10.4 g/dL (14.0-18.0); Mean Corpuscular HGB CONC 31.4 g/dL (32.0-36.0); Mean Corpuscular Hemoglobin 29.3 pg (27.0-31.0); Mean Corpuscular Volume 93.2 fl (78.0-98.0); Mean Platelet Volume 10.5 fL (7.4-10.4); Platelet Count 216 10x3/uL (130-400); RBC Distribution Width 14.4 % (11.5-14.5); Red Blood Cell (RBC) Count 3.55 mill/uL (4.70-6.10); White Blood Cell (WBC) Count 6.1 10x3/uL (4.8-10.8)
[2022-12-09 05:27] LABS: Anion Gap 13 mmol/L (10-20); BUN (Urea Nitrogen) 26 mg/dL (8.4-25.7); Calc. Creatinine Clearance 58 mL/min (70-130); Calcium 9.6 mg/dL (7.8-10.44); Carbon Dioxide 28 mmol/L (23-31); Chloride 100 mmol/L (98-107); Estimated GFR 52; Glucose 96 mg/dL (83-110); Potassium 4.3 mmol/L (3.5-5.1); Sodium 137 mmol/L (136-145)
[2022-12-09] MEDS: HYDROcodone/Acetaminophen 10/325 mg Tablet PO PRN ×2 (05:38→20:07)
[2022-12-09] MEDS ORDERED: Furosemide 40 MG/4 ML VIAL SLOW IVP SCH (06:00)
[2022-12-09] MEDS: Aspirin Chewable 81 MG TAB PO SCH (08:21)
[2022-12-09] MEDS: Senokot S 8.6-50 MG TAB PO PRN ×2 (08:21→21:35)
[2022-12-09] MEDS: Pregabalin 75 MG CAP PO SCH ×2 (08:22→20:06)
[2022-12-09] MEDS: Ondansetron PF 4 MG/2 ML Vial IVP PRN ×2 (08:23→20:06)
[2022-12-09] MEDS: Heparin 5,000 UNITS/ML VIAL SC SCH ×3 (08:23→20:08)
[2022-12-09] MEDS: Famotidine/PF 20 mg/2ml Vial SLOW IVP SCH ×2 (08:32→20:08)
[2022-12-09] MEDS: Carvedilol 3.125 MG TAB PO SCH ×2 (08:32→16:12)
[2022-12-09] MEDS ORDERED: Bisacodyl 10 MG SUPP PR PRN (08:53)
[2022-12-09] MEDS ORDERED: Potassium Chloride 10 MEQ TAB PO SCH (09:15)
[2022-12-09] MEDS: Senokot S 8.6-50 MG TAB PO SCH ×2 (09:32→09:36)
[2022-12-09] MEDS: Atorvastatin Calcium 40 MG TAB PO SCH (20:07)
[2022-12-09] MEDS: Melatonin 3 MG TAB PO PRN (21:36)
[2022-12-10] MEDS: Morphine ER 15 MG TAB PO PRN ×2 (01:42→20:02)
[2022-12-10 04:55] LABS: Anion Gap 14 mmol/L (10-20); BUN (Urea Nitrogen) 31 mg/dL (8.4-25.7); Calc. Creatinine Clearance 55 mL/min (70-130); Calcium 9.2 mg/dL (7.8-10.44); Carbon Dioxide 27 mmol/L (23-31); Chloride 101 mmol/L (98-107); Estimated GFR 49; Glucose 93 mg/dL (83-110); Potassium 4.4 mmol/L (3.5-5.1); Sodium 138 mmol/L (136-145)
[2022-12-10] MEDS: Pregabalin 75 MG CAP PO SCH ×2 (08:16→20:01)
[2022-12-10] MEDS: Famotidine/PF 20 mg/2ml Vial SLOW IVP SCH ×2 (08:16→20:01)
[2022-12-10] MEDS: Carvedilol 3.125 MG TAB PO SCH ×2 (08:16→18:23)
[2022-12-10] MEDS: Aspirin Chewable 81 MG TAB PO SCH (08:16)
[2022-12-10] MEDS: Furosemide 40 MG TAB PO SCH (08:16)
[2022-12-10] MEDS: Heparin 5,000 UNITS/ML VIAL SC SCH ×3 (08:17→20:01)
[2022-12-10] MEDS ORDERED: Sodium Chloride 0.9% 500 ML IV SCH (10:30)
[2022-12-10] MEDS: Senokot S 8.6-50 MG TAB PO PRN ×2 (14:28→20:03)
[2022-12-10] MEDS: HYDROcodone/Acetaminophen 10/325 mg Tablet PO PRN (14:28)
[2022-12-10] MEDS: Atorvastatin Calcium 40 MG TAB PO SCH (20:02)
[2022-12-11] MEDS: Melatonin 3 MG TAB PO PRN (01:46)
[2022-12-11] MEDS: HYDROcodone/Acetaminophen 10/325 mg Tablet PO PRN (01:46)
[2022-12-11] MEDS: Aspirin Chewable 81 MG TAB PO SCH (07:35)
[2022-12-11] MEDS: Famotidine/PF 20 mg/2ml Vial SLOW IVP SCH ×2 (07:35→21:25)
[2022-12-11] MEDS: Heparin 5,000 UNITS/ML VIAL SC SCH ×3 (07:36→21:24)
[2022-12-11] MEDS: Senokot S 8.6-50 MG TAB PO PRN (07:36)
[2022-12-11] MEDS: Carvedilol 3.125 MG TAB PO SCH ×2 (07:36→17:58)
[2022-12-11] MEDS: Pregabalin 75 MG CAP PO SCH ×2 (07:36→21:24)
[2022-12-11] MEDS: Furosemide 40 MG TAB PO SCH (07:36)
[2022-12-11 09:01] LABS: Anion Gap 13 mmol/L (10-20); BUN (Urea Nitrogen) 32 mg/dL (8.4-25.7); Calc. Creatinine Clearance 50 mL/min (70-130); Calcium 9.3 mg/dL (7.8-10.44); Carbon Dioxide 30 mmol/L (23-31); Chloride 99 mmol/L (98-107); Estimated GFR 44; Glucose 138 mg/dL (83-110); Potassium 4.2 mmol/L (3.5-5.1); Sodium 138 mmol/L (136-145)
[2022-12-11] MEDS: Morphine ER 15 MG TAB PO PRN ×2 (09:35→21:24)
[2022-12-11] MEDS ORDERED: Fleet Saline Enema 133 ML BOT PR SCH (14:00)
[2022-12-11] MEDS ORDERED: Lactated Ringer's 500 ML IV SCH (14:00)
[2022-12-11] MEDS ORDERED: Zolpidem Tartrate 5 MG TAB PO PRN (18:20)
[2022-12-11] MEDS: Atorvastatin Calcium 40 MG TAB PO SCH (21:25)
[2022-12-12 05:17] LABS: #Eosinphils 0.1 thou/uL (0.0-0.7); #Monocytes 1.3 thou/uL (0.11-0.59); #Neutrophils 4.2 thou/uL (1.40-6.50); %Basophils 0.1 % (0.0-1.0); %Eosinophils 0.9 % (0.0-10.0); %Lymphocytes 18.2 % (21.0-51.0); %Monocytes 18.4 % (0.0-10.0); %Neutrophils 62.1 % (42.0-75.0); Hemoglobin 10.2 g/dL (14.0-18.0); Mean Corpuscular HGB CONC 31.6 g/dL (32.0-36.0); Mean Corpuscular Hemoglobin 29.6 pg (27.0-31.0); Mean Corpuscular Volume 93.6 fl (78.0-98.0); Mean Platelet Volume 10.8 fL (7.4-10.4); Platelet Count 169 10x3/uL (130-400); RBC Distribution Width 14.6 % (11.5-14.5); Red Blood Cell (RBC) Count 3.45 mill/uL (4.70-6.10); White Blood Cell (WBC) Count 6.8 10x3/uL (4.8-10.8)
[2022-12-12 05:40] LABS: ALT (SGPT) 37 U/L (8-55); AST (SGOT) 75 U/L (5-34); Albumin 3.8 g/dL (3.4-4.8); Alkaline Phosphatase 92 U/L (40-110); Anion Gap 15 mmol/L (10-20); BUN (Urea Nitrogen) 30 mg/dL (8.4-25.7); Bilirubin, Total 0.4 mg/dL (0.2-1.2); Calc. Creatinine Clearance 53 mL/min (70-130); Calcium 8.8 mg/dL (7.8-10.44); Carbon Dioxide 27 mmol/L (23-31); Chloride 99 mmol/L (98-107); Estimated GFR 48; Globulin 3.2 g/dL (2.4-3.5); Glucose 96 mg/dL (83-110); Potassium 3.8 mmol/L (3.5-5.1); Sodium 137 mmol/L (136-145)
[2022-12-12] MEDS: Pregabalin 75 MG CAP PO SCH (10:39)
[2022-12-12] MEDS: Aspirin Chewable 81 MG TAB PO SCH (10:39)
[2022-12-12] MEDS: Morphine ER 15 MG TAB PO PRN (10:40)
[2022-12-12] MEDS: Famotidine/PF 20 mg/2ml Vial SLOW IVP SCH (10:40)
[2022-12-12] MEDS: Heparin 5,000 UNITS/ML VIAL SC SCH ×2 (10:42→14:03)
[2022-12-12] MEDS: Carvedilol 3.125 MG TAB PO SCH ×2 (10:44→17:24)
[2022-12-12 14:00] VITALS: BP 107/58; TEMP 97.4
== END 2022-12-12 17:31 | disposition home health service (06) | DRG 682 ==
LOC: ERS 11:20 → 2NO 14:39 → OBSVTOIN 12-08 10:16
PROVIDERS: ADMIT Internal Medicine; ATTEND Emergency Medicine
DX: N17.9 Acute kidney failure, unspecified (principal); I50.43 Acute on chronic combined systolic (congestive) and diastolic (congestive) heart failure; I13.0 Hypertensive heart and chronic kidney disease with heart failure and stage 1 through stage 4 chronic kidney disease, or unspecified chronic kidney disease; I48.92 Unspecified atrial flutter; R53.1 Weakness; D63.1 Anemia in chronic kidney disease; N18.9 Chronic kidney disease, unspecified; E78.5 Hyperlipidemia, unspecified; I48.91 Unspecified atrial fibrillation; C61 Malignant neoplasm of prostate; F17.210 Nicotine dependence, cigarettes, uncomplicated; R79.1 Abnormal coagulation profile; I25.10 Atherosclerotic heart disease of native coronary artery without angina pectoris; Z96.653 Presence of artificial knee joint, bilateral; Z98.890 Other specified postprocedural states; Z79.82 Long term (current) use of aspirin; Z79.899 Other long term (current) drug therapy; Z95.5 Presence of coronary angioplasty implant and graft; Z95.0 Presence of cardiac pacemaker; Z90.49 Acquired absence of other specified parts of digestive tract; Z82.49 Family history of ischemic heart disease and other diseases of the circulatory system; E86.0 Dehydration
CPT/HCPCS: 36415; 36416; 71045; 74018; 74177; 80048; 80053; 83690; 83735; 83880; 84484; 85025; 85379; 93005; 96372; 96374; 96375; 96376; G0378; J0696; J1644; J1940; J2272; J2405; J3490; J7030; J7120; Q0162; Q9967; S0028

== ENCOUNTER 2022-12-14 18:59 | Inpatient (IN) | payer MEDICARE ==
[~2022-12-14 18:59] MED LIST changes: -Iopamidol-370 76% 500 ML 1 ML ONE; +Iopamidol-370 76% 500 ML MDV (1 ML CHARGE) ONE
[2022-12-14] MEDS ORDERED: fentaNYL 50 mcg/mL 1 mL Vial ONE (20:04)
[2022-12-14 20:13] LABS: #Monocytes 1.3 thou/uL (0.11-0.59); #Neutrophils 9.1 thou/uL (1.40-6.50); %Basophils 0.1 % (0.0-1.0); %Lymphocytes 14.8 % (21.0-51.0); %Monocytes 10.2 % (0.0-10.0); %Neutrophils 73.8 % (42.0-75.0); Hemoglobin 10.4 g/dL (14.0-18.0); Mean Corpuscular Hemoglobin 30.1 pg (27.0-31.0); Mean Platelet Volume 10.8 fL (7.4-10.4); Platelet Count 152 10x3/uL (130-400); RBC Distribution Width 14.7 % (11.5-14.5); Red Blood Cell (RBC) Count 3.46 mill/uL (4.70-6.10); White Blood Cell (WBC) Count 12.3 10x3/uL (4.8-10.8)
[2022-12-14 20:29] LABS: Prothrombin Time 13.5 sec (12.0-14.7)
[2022-12-14 20:30] LABS: D-Dimer Test 2.32 *mcg/mL (0.27-0.43); PTT 54.5 sec (22.9-36.1)
[2022-12-14 20:58] LABS: ALT (SGPT) 50 U/L (8-55); AST (SGOT) 77 U/L (5-34); Albumin 3.8 g/dL (3.4-4.8); Alkaline Phosphatase 74 U/L (40-110); Anion Gap 15 mmol/L (10-20); BUN (Urea Nitrogen) 30 mg/dL (8.4-25.7); Bilirubin, Total 0.5 mg/dL (0.2-1.2); CK (CPK) 441 U/L (30-200); Calc. Creatinine Clearance 0 mL/min (70-130); Carbon Dioxide 27 mmol/L (23-31); Chloride 98 mmol/L (98-107); Estimated GFR 59; Globulin 2.8 g/dL (2.4-3.5); Glucose 112 mg/dL (83-110); Protein, Total 6.6 g/dL (5.8-8.1); Sodium 136 mmol/L (136-145)
[2022-12-14] MEDS ORDERED: Morphine 4 MG/ML VIAL ONE (23:01)
[2022-12-14] MEDS ORDERED: Acetaminophen/Codeine 30-300mg Tablet PO PRN (23:30)
[2022-12-14 23:56] LABS: #Monocytes 1.4 thou/uL (0.11-0.59); #Neutrophils 9.1 thou/uL (1.40-6.50); %Basophils 0.2 % (0.0-1.0); %Lymphocytes 14.3 % (21.0-51.0); %Monocytes 11.1 % (0.0-10.0); %Neutrophils 72.6 % (42.0-75.0); Hemoglobin 9.6 g/dL (14.0-18.0); Mean Corpuscular HGB CONC 31.8 g/dL (32.0-36.0); Mean Corpuscular Hemoglobin 29.8 pg (27.0-31.0); Mean Platelet Volume 11.2 fL (7.4-10.4); Platelet Count 124 10x3/uL (130-400); RBC Distribution Width 14.9 % (11.5-14.5); Red Blood Cell (RBC) Count 3.22 mill/uL (4.70-6.10); White Blood Cell (WBC) Count 12.6 10x3/uL (4.8-10.8)
[2022-12-15 00:09] LABS: Mean Corpuscular Volume 93.8 fl (78.0-98.0)
[2022-12-15 00:18] LABS: Troponin I 0.041 ng/mL (< 0.028)
[2022-12-15 00:36] LABS: Anion Gap 17 mmol/L (10-20); BUN (Urea Nitrogen) 25 mg/dL (8.4-25.7); Calc. Creatinine Clearance 0 mL/min (70-130); Carbon Dioxide 21 mmol/L (23-31); Chloride 101 mmol/L (98-107); Estimated GFR 66; Glucose 104 mg/dL (83-110); Potassium 3.8 mmol/L (3.5-5.1); Sodium 135 mmol/L (136-145)
[2022-12-15] MEDS: Sodium Chloride 0.9% 1,000 ML IV SCH ×2 (00:44→17:18)
[2022-12-15 04:14] VITALS: BMI 29.0
[2022-12-15 06:56] LABS: Cardiac Risk 3.7 (Less than 4.5)
[2022-12-15] MEDS: Morphine ER 15 MG TAB PO SCH ×2 (09:07→20:30)
[2022-12-15] MEDS: Carvedilol 3.125 MG TAB PO SCH ×2 (09:08→17:19)
[2022-12-15] MEDS: Pregabalin 75 MG CAP PO SCH ×2 (09:08→20:29)
[2022-12-15] MEDS: cefTRIAXone\\ROCEPHIN 1 GM in Sodium Chloride 0.9% 100 ML IVPB SCH (09:08)
[2022-12-15] MEDS: Aspirin 325 mg Enteric Coated Tablet PO SCH (09:08)
[2022-12-15] MEDS ORDERED: Iopamidol-370 76% 500 ML MDV (1 ML CHARGE) ONE (09:12)
[2022-12-15] MEDS: HYDROcodone/Acetaminophen 10/325 mg Tablet PO PRN ×2 (14:10→21:49)
[2022-12-15] MEDS: Ondansetron PF 4 MG/2 ML Vial IVP PRN (14:32)
[2022-12-15 14:38] LABS: Bacteria/HPF None Seen HPF (None Seen); Bilirubin Negative (Negative); Blood, Urine Negative (Negative); CAUTI Indications for Culture Fever or rigors; Clarity Clear (Clear); Glucose, Urine (Dipstick) Normal (Negative); Ketone, Urine Negative (Negative); Leukocyte Negative Leu/uL (Negative); Nitrite Negative (Negative); Protein, Urine (Dipstick) 50 mg/dL (Neg-Trace); RBC/HPF 0-3 HPF (0-3); Squamous Epithelial 0-3 HPF (0-3); Urobilinogen Normal mg/dL (Less than 2); WBC/HPF 0-3 HPF (0-3)
[2022-12-15 14:43] LABS: Specific Gravity, Urine 1.046 (1.002-1.036)
[2022-12-15 14:45] LABS: Urine Culture Reflex No No
[2022-12-15 14:59] LABS: Legionella Urinary Ag Negative (Negative); Strep pneumo Urine Ag NEGATIVE (NEGATIVE)
[2022-12-15] MEDS: Atorvastatin Calcium 40 MG TAB PO SCH (20:30)
[2022-12-16 02:56] LABS: Troponin I 0.044 ng/mL (< 0.028)
[2022-12-16] MEDS: HYDROcodone/Acetaminophen 10/325 mg Tablet PO PRN ×3 (03:37→21:21)
[2022-12-16] MEDS: Sodium Chloride 0.9% 1,000 ML IV SCH (03:38)
[2022-12-16 05:10] LABS: Hemoglobin 9.1 g/dL (14.0-18.0); Mean Corpuscular Hemoglobin 29.4 pg (27.0-31.0); Mean Corpuscular Volume 96.1 fl (78.0-98.0)
[2022-12-16 05:11] LABS: #Monocytes 0.7 thou/uL (0.11-0.59); #Neutrophils 7.6 thou/uL (1.40-6.50); %Basophils 0.1 % (0.0-1.0); %Eosinophils 0.4 % (0.0-10.0); %Lymphocytes 15.6 % (21.0-51.0); %Monocytes 7.3 % (0.0-10.0); %Neutrophils 76.1 % (42.0-75.0); Mean Corpuscular HGB CONC 30.5 g/dL (32.0-36.0); Mean Platelet Volume 11.3 fL (7.4-10.4); Platelet Count 126 10x3/uL (130-400); RBC Distribution Width 15.1 % (11.5-14.5)
[2022-12-16 06:09] LABS: Anion Gap 13 mmol/L (10-20); BUN (Urea Nitrogen) 22 mg/dL (8.4-25.7); Calc. Creatinine Clearance 90 mL/min (70-130); Calcium 8.5 mg/dL (7.8-10.44); Carbon Dioxide 24 mmol/L (23-31); Chloride 106 mmol/L (98-107); Estimated GFR 86; Glucose 87 mg/dL (83-110); Sodium 139 mmol/L (136-145)
[2022-12-16] MEDS ORDERED: Furosemide 20 MG/2 ML VIAL SLOW IVP SCH (08:00)
[2022-12-16] MEDS: Aspirin 325 mg Enteric Coated Tablet PO SCH (08:25)
[2022-12-16] MEDS: cefTRIAXone\\ROCEPHIN 1 GM in Sodium Chloride 0.9% 100 ML IVPB SCH (08:25)
[2022-12-16] MEDS: Guaifenesin DM 100-10/5 ML UDCUP PO PRN (08:25)
[2022-12-16] MEDS: Benzonatate 100 MG CAP PO SCH ×3 (08:25→20:04)
[2022-12-16] MEDS: Pregabalin 75 MG CAP PO SCH ×2 (08:26→20:02)
[2022-12-16] MEDS: Morphine ER 15 MG TAB PO SCH ×2 (08:26→20:04)
[2022-12-16] MEDS: Carvedilol 3.125 MG TAB PO SCH ×2 (08:27→16:51)
[2022-12-16] MEDS ORDERED: Furosemide 20 MG TAB PO SCH (09:00)
[2022-12-16] MEDS: Furosemide 20 MG TAB PO SCH (14:50)
[2022-12-16] MEDS: Atorvastatin Calcium 40 MG TAB PO SCH (20:04)
[2022-12-17] MEDS: HYDROcodone/Acetaminophen 10/325 mg Tablet PO PRN ×3 (03:21→18:54)
[2022-12-17 04:31] LABS: #Eosinphils 0.1 thou/uL (0.0-0.7); #Monocytes 0.6 thou/uL (0.11-0.59); #Neutrophils 5.1 thou/uL (1.40-6.50); %Eosinophils 1.1 % (0.0-10.0); %Lymphocytes 16.9 % (21.0-51.0); %Monocytes 9.1 % (0.0-10.0); %Neutrophils 72.6 % (42.0-75.0); Hemoglobin 9.6 g/dL (14.0-18.0); Mean Corpuscular HGB CONC 32.2 g/dL (32.0-36.0); Mean Corpuscular Hemoglobin 29.9 pg (27.0-31.0); Mean Platelet Volume 10.7 fL (7.4-10.4); Platelet Count 131 10x3/uL (130-400); RBC Distribution Width 14.9 % (11.5-14.5); Red Blood Cell (RBC) Count 3.21 mill/uL (4.70-6.10); White Blood Cell (WBC) Count 7.1 10x3/uL (4.8-10.8)
[2022-12-17 04:46] LABS: Mean Corpuscular Volume 92.8 fl (78.0-98.0)
[2022-12-17 04:58] LABS: Anion Gap 14 mmol/L (10-20); BUN (Urea Nitrogen) 21 mg/dL (8.4-25.7); CRP (Inflammatory) 3.31 mg/dL (= or < 0.5); Calc. Creatinine Clearance 90 mL/min (70-130); Calcium 8.6 mg/dL (7.8-10.44); Carbon Dioxide 22 mmol/L (23-31); Chloride 104 mmol/L (98-107); Estimated GFR 86; Glucose 89 mg/dL (83-110); Potassium 4.1 mmol/L (3.5-5.1); Sodium 136 mmol/L (136-145)
[2022-12-17] MEDS: cefTRIAXone\\ROCEPHIN 1 GM in Sodium Chloride 0.9% 100 ML IVPB SCH (09:12)
[2022-12-17] MEDS: Morphine ER 15 MG TAB PO SCH ×2 (09:13→21:17)
[2022-12-17] MEDS: Benzonatate 100 MG CAP PO SCH ×3 (09:13→21:19)
[2022-12-17] MEDS: Aspirin 325 mg Enteric Coated Tablet PO SCH (09:14)
[2022-12-17] MEDS: Pregabalin 75 MG CAP PO SCH ×2 (09:14→21:18)
[2022-12-17] MEDS: Carvedilol 3.125 MG TAB PO SCH ×2 (09:14→16:14)
[2022-12-17] MEDS: Guaifenesin DM 100-10/5 ML UDCUP PO PRN ×2 (10:14→21:17)
[2022-12-17] MEDS: Furosemide 20 MG TAB PO SCH (14:05)
[2022-12-17] MEDS: Atorvastatin Calcium 40 MG TAB PO SCH (21:19)
[2022-12-17] MEDS: Ondansetron PF 4 MG/2 ML Vial IVP PRN (21:27)
[2022-12-18] MEDS: HYDROcodone/Acetaminophen 10/325 mg Tablet PO PRN ×3 (02:15→19:21)
[2022-12-18] MEDS: Morphine ER 15 MG TAB PO SCH ×2 (08:36→20:39)
[2022-12-18] MEDS: Aspirin 325 mg Enteric Coated Tablet PO SCH (08:36)
[2022-12-18] MEDS: Benzonatate 100 MG CAP PO SCH ×3 (08:37→20:39)
[2022-12-18] MEDS: Carvedilol 3.125 MG TAB PO SCH ×2 (08:37→19:23)
[2022-12-18] MEDS: Pregabalin 75 MG CAP PO SCH ×2 (08:37→20:41)
[2022-12-18] MEDS: cefTRIAXone\\ROCEPHIN 1 GM in Sodium Chloride 0.9% 100 ML IVPB SCH (08:38)
[2022-12-18] MEDS: Ondansetron PF 4 MG/2 ML Vial IVP PRN (12:06)
[2022-12-18] MEDS: Furosemide 20 MG TAB PO SCH (14:03)
[2022-12-18] MEDS: Atorvastatin Calcium 40 MG TAB PO SCH (20:39)
[2022-12-19] MEDS: HYDROcodone/Acetaminophen 10/325 mg Tablet PO PRN (04:13)
[2022-12-19] MEDS: cefTRIAXone\\ROCEPHIN 1 GM in Sodium Chloride 0.9% 100 ML IVPB SCH (08:41)
[2022-12-19] MEDS: Aspirin 325 mg Enteric Coated Tablet PO SCH (08:46)
[2022-12-19] MEDS: Morphine ER 15 MG TAB PO SCH (08:46)
[2022-12-19] MEDS: Benzonatate 100 MG CAP PO SCH (08:46)
[2022-12-19] MEDS: Pregabalin 75 MG CAP PO SCH (08:46)
[2022-12-19] MEDS: Carvedilol 3.125 MG TAB PO SCH (08:47)
[2022-12-19 12:09] VITALS: BP 98/56; TEMP 98
== END 2022-12-19 12:43 | disposition home or self-care (01) | DRG 871 ==
LOC: ERS 18:59 → 2SE 23:23 → OBSVTOIN 12-16 12:55
PROVIDERS: ADMIT Hospitalist; ATTEND Hospitalist
DX: A41.9 Sepsis, unspecified organism (principal); J18.9 Pneumonia, unspecified organism; I48.92 Unspecified atrial flutter; I50.42 Chronic combined systolic (congestive) and diastolic (congestive) heart failure; I11.0 Hypertensive heart disease with heart failure; E78.5 Hyperlipidemia, unspecified; R53.1 Weakness; W18.30XA Fall on same level, unspecified, initial encounter; I25.10 Atherosclerotic heart disease of native coronary artery without angina pectoris; Z95.1 Presence of aortocoronary bypass graft; Z95.0 Presence of cardiac pacemaker; Z79.82 Long term (current) use of aspirin; Z79.899 Other long term (current) drug therapy; Y92.002 Bathroom of unspecified non-institutional (private) residence as the place of occurrence of the external cause
CPT/HCPCS: 36415; 36416; 70450; 71045; 71260; 71275; 72125; 74177; 80048; 80053; 80061; 81001; 82550; 82553; 83605; 84145; 84484; 85025; 85379; 85610; 85730; 86140; 87040; 87449; 87899; 93005; 93306; 93880; 93970; 94760; 96361; 96372; 96374; 96375; 96376; G0378; J0696; J1650; J1940; J2270; J2405; J3010; J3490; J7050; Q9967

== ENCOUNTER 2023-04-01 12:00 | Outpatient (CLI) | payer MEDICARE ==
[2023-04-01 13:05] LABS: #Eosinphils 0.3 10x3/uL (0.0-0.5); #Monocytes 1.2 10x3/uL (0.0-1.1); #Neutrophils 8.7 10x3/uL (1.5-8.4); %Basophils 0.3 % (0.0-2.0); %Eosinophils 2.1 % (0.0-6.0); %Lymphocytes 13.7 % (18.0-47.0); %Monocytes 10.1 % (0.0-10.0); %Neutrophils 73.5 % (40.0-75.0); Hematocrit 33.1 % (38.8-50.0); Hemoglobin 10.6 g/dL (13.5-17.5); Mean Corpuscular Hemoglobin 29.6 pg (27.0-33.0); Mean Corpuscular Volume 92.5 fl (81.2-95.1); Mean Platelet Volume 10.4 fl (7.4-10.4); Platelet Count 244 10x3/uL (150-450); RBC Distribution Width 14.1 % (11.5-14.5); Red Blood Cell (RBC) Count 3.58 10x6/uL (4.32-5.72); White Blood Cell (WBC) Count 11.8 10x3/uL (3.5-10.5)
[2023-04-01 13:35] LABS: Anion Gap 16 mmol/L (10-20); BUN (Urea Nitrogen) 28 mg/dL (8.4-25.7); Calc. Creatinine Clearance 0 mL/min (70-130); Calcium 8.4 mg/dL (7.8-10.44); Carbon Dioxide 24 mmol/L (23-31); Chloride 106 mmol/L (98-107); Estimated GFR 72; Glucose 119 mg/dL (83-110); Potassium 4.7 mmol/L (3.5-5.1); Sodium 141 mmol/L (136-145)
== END 2023-04-01 12:01 | disposition home or self-care (01) ==
LOC: LABBT 12:00
PROVIDERS: ATTEND Internal Medicine Cardiovascular Disease
DX: Z01.812 Encounter for preprocedural laboratory examination (principal); I48.91 Unspecified atrial fibrillation
CPT/HCPCS: 80048; 85025

== ENCOUNTER 2023-04-04 07:01 | Day surgery (SDC) | payer MEDICARE ==
[2023-04-01 12:54] VITALS: BMI 30.4
[2023-04-04] MEDS ORDERED: PROPOFOL 200 MG/20 ML VIAL ONE (09:08)
== END 2023-04-04 10:01 | disposition home or self-care (01) ==
LOC: SDC 07:01
PROVIDERS: ATTEND Internal Medicine Cardiovascular Disease
PROC: 5A2204Z Restoration of Cardiac Rhythm, Single (ICD-10-PCS; principal; 2023-04-04)
DX: I48.0 Paroxysmal atrial fibrillation (principal); N17.9 Acute kidney failure, unspecified; I25.5 Ischemic cardiomyopathy; I71.03 Dissection of thoracoabdominal aorta; I35.8 Other nonrheumatic aortic valve disorders; I10 Essential (primary) hypertension; I25.10 Atherosclerotic heart disease of native coronary artery without angina pectoris; E78.00 Pure hypercholesterolemia, unspecified; R55 Syncope and collapse; Z90.49 Acquired absence of other specified parts of digestive tract; Z95.818 Presence of other cardiac implants and grafts; Z95.1 Presence of aortocoronary bypass graft; Z95.0 Presence of cardiac pacemaker; Z82.49 Family history of ischemic heart disease and other diseases of the circulatory system
CPT/HCPCS: 92960; 93005; 93010; J2704

== ENCOUNTER 2023-04-20 23:44 | Inpatient (IN) | payer MEDICARE ==
[2023-04-21 00:10] LABS: #Eosinphils 0.1 thou/uL (0.0-0.7); #Monocytes 0.7 thou/uL (0.11-0.59); #Neutrophils 5.8 thou/uL (1.40-6.50); %Basophils 0.4 % (0.0-1.0); %Eosinophils 0.6 % (0.0-10.0); %Lymphocytes 17.9 % (21.0-51.0); %Monocytes 8.4 % (0.0-10.0); %Neutrophils 72.3 % (42.0-75.0); Hematocrit 36.3 % (42.0-52.0); Hemoglobin 11.8 g/dL (14.0-18.0); Mean Corpuscular HGB CONC 32.5 g/dL (32.0-36.0); Mean Corpuscular Volume 92.4 fl (78.0-98.0); Mean Platelet Volume 10.2 fL (7.4-10.4); Platelet Count 304 10x3/uL (130-400); Red Blood Cell (RBC) Count 3.93 mill/uL (4.70-6.10)
[2023-04-21 00:33] LABS: ALT (SGPT) 10 U/L (8-55); AST (SGOT) 18 U/L (5-34); Alkaline Phosphatase 122 U/L (40-110); Anion Gap 16 mmol/L (10-20); BUN (Urea Nitrogen) 17 mg/dL (8.4-25.7); Calc. Creatinine Clearance 0 mL/min (70-130); Calcium 9.3 mg/dL (7.8-10.44); Carbon Dioxide 26 mmol/L (23-31); Chloride 99 mmol/L (98-107); Estimated GFR 73; Glucose 110 mg/dL (83-110); Lipase 22 U/L (8-78); Potassium 4.5 mmol/L (3.5-5.1); Sodium 136 mmol/L (136-145)
[2023-04-21 00:37] LABS: Troponin I Less than 0.010 ng/mL (< 0.028)
[2023-04-21] MEDS ORDERED: Morphine 4 MG/ML VIAL ONE ×2 (01:01→04:45)
[2023-04-21] MEDS ORDERED: Prochlorperazine 10 MG/2 ML VIAL ONE (01:01)
[2023-04-21] MEDS ORDERED: diphenhydrAMINE 50 MG/ML VIAL ONE (01:01)
[2023-04-21 01:37] LABS: Magnesium 2.3 mg/dL (1.6-2.6)
[2023-04-21 02:32] LABS: Bacteria/HPF None Seen HPF (None Seen); Bilirubin Negative (Negative); Blood, Urine Negative (Negative); CAUTI Indications for Culture Pelvic or flank pain; Clarity Clear (Clear); Glucose, Urine (Dipstick) Normal (Negative); Ketone, Urine Negative (Negative); Leukocyte Negative Leu/uL (Negative); Nitrite Negative (Negative); Protein, Urine (Dipstick) Negative (Neg-Trace); RBC/HPF 0-3 HPF (0-3); Specific Gravity, Urine 1.015 (1.002-1.036); Squamous Epithelial None Seen HPF (0-3); WBC/HPF 0-3 HPF (0-3); pH, Urine 7.5 (5.0-9.0)
[2023-04-21 02:34] LABS: Urine Culture Reflex No No
[2023-04-21] MEDS ORDERED: Ondansetron PF 4 MG/2 ML Vial ONE ×2 (03:44→08:22)
[2023-04-21] MEDS ORDERED: Furosemide 40 MG/4 ML VIAL ONE (03:44)
[2023-04-21] MEDS ORDERED: Ondansetron PF 4 MG/2 ML Vial IVP PRN (05:56)
[2023-04-21] MEDS ORDERED: Ondansetron ODT 4 MG TAB PO PRN (05:56)
[2023-04-21] MEDS ORDERED: Acetaminophen 650 MG Suppository PR PRN (05:56)
[2023-04-21] MEDS ORDERED: Acetaminophen 325 MG TAB PO PRN (05:56)
[2023-04-21 06:08] LABS: Troponin I 0.013 ng/mL (< 0.028)
[2023-04-21] MEDS ORDERED: Acetaminophen 325 MG TAB ONE (08:54)
[2023-04-21] MEDS ORDERED: Promethazine HCl 12.5 MG in Sodium Chloride 0.9% 50 ML IVPB PRN ×2 (09:04→09:06)
[2023-04-21 09:13] LABS: Troponin I 0.012 ng/mL (< 0.028)
[2023-04-21] MEDS ORDERED: Pantoprazole 40 MG VIAL ONE (09:41)
[2023-04-21] MEDS: Pantoprazole 40 MG VIAL IVP SCH ×2 (09:45→21:22)
[2023-04-21] MEDS ORDERED: HYDROcodone/Acetaminophen 10/325 mg Tablet ONE (11:55)
[2023-04-21] MEDS ORDERED: Metoclopramide HCl 10 MG/2 ML VIAL ONE (11:56)
[2023-04-21] MEDS: HYDROcodone/Acetaminophen 10/325 mg Tablet PO SCH ×3 (12:02→21:22)
[2023-04-21] MEDS: Metoclopramide HCl 10 MG/2 ML VIAL IVP PRN (12:02)
[2023-04-21] MEDS ORDERED: Iopamidol-370 76% 500 ML MDV (1 ML CHARGE) ONE (12:39)
[2023-04-21] MEDS: Carvedilol 3.125 MG TAB PO SCH (17:05)
[2023-04-21] MEDS ORDERED: Non-Formulary Item 1 EACH (Pregabalin [Lyrica] 150 MG Capsule) PO SCH (21:00)
[2023-04-21] MEDS: Heparin 5,000 UNITS/ML VIAL SC SCH (21:22)
[2023-04-21] MEDS: Pregabalin 75 MG CAP PO SCH (21:22)
[2023-04-21] MEDS: Nitroglycerin 0.4 MG TAB (25 Tab Bottle) SL PRN ×3 (22:40→23:10)
[2023-04-21] MEDS ORDERED: Sodium Chloride 0.9% 500 ML IV SCH (23:30)
[2023-04-22] MEDS: HYDROcodone/Acetaminophen 10/325 mg Tablet PO SCH ×6 (00:34→20:26)
[2023-04-22] MEDS: Metoclopramide HCl 10 MG/2 ML VIAL IVP PRN (03:02)
[2023-04-22 03:41] LABS: #Eosinphils 0.1 thou/uL (0.0-0.7); #Neutrophils 4.3 thou/uL (1.40-6.50); %Basophils 0.5 % (0.0-1.0); %Eosinophils 1.2 % (0.0-10.0); %Lymphocytes 27.4 % (21.0-51.0); %Monocytes 13.3 % (0.0-10.0); %Neutrophils 57.3 % (42.0-75.0); Hematocrit 35.8 % (42.0-52.0); Hemoglobin 11.5 g/dL (14.0-18.0); Mean Corpuscular HGB CONC 32.1 g/dL (32.0-36.0); Mean Corpuscular Hemoglobin 29.3 pg (27.0-31.0); Mean Corpuscular Volume 91.1 fl (78.0-98.0); Mean Platelet Volume 10.2 fL (7.4-10.4); Platelet Count 306 10x3/uL (130-400); RBC Distribution Width 14.1 % (11.5-14.5); Red Blood Cell (RBC) Count 3.93 mill/uL (4.70-6.10); White Blood Cell (WBC) Count 7.5 10x3/uL (4.8-10.8)
[2023-04-22 04:10] LABS: Anion Gap 13 mmol/L (10-20); BUN (Urea Nitrogen) 20 mg/dL (8.4-25.7); Calc. Creatinine Clearance 67 mL/min (70-130); Carbon Dioxide 28 mmol/L (23-31); Chloride 100 mmol/L (98-107); Estimated GFR 65; Glucose 122 mg/dL (83-110); Sodium 137 mmol/L (136-145)
[2023-04-22] MEDS ORDERED: FLU VACC QS2023(65UP)/MF59C/PF 60 MCG/0.5 ML SYRINGE IM ONE (09:00)
[2023-04-22] MEDS ORDERED: Furosemide 20 MG TAB PO SCH (09:00)
[2023-04-22] MEDS ORDERED: TRAMADOL HCL 200 MG PO SCH (09:00)
[2023-04-22] MEDS ORDERED: Non-Formulary Item 1 EACH (Tramadol Hcl [Tramadol Hcl Er] 200 MG Tab.Er.24h) PO SCH (09:00)
[2023-04-22] MEDS ORDERED: Amiodarone 200 MG TAB PO SCH (09:00)
[2023-04-22] MEDS: Pregabalin 75 MG CAP PO SCH ×2 (09:26→20:20)
[2023-04-22] MEDS: Atorvastatin Calcium 40 MG TAB PO SCH (09:26)
[2023-04-22] MEDS: Carvedilol 3.125 MG TAB PO SCH ×2 (09:26→17:04)
[2023-04-22] MEDS: Pantoprazole 40 MG VIAL IVP SCH (09:28)
[2023-04-22] MEDS: Heparin 5,000 UNITS/ML VIAL SC SCH ×2 (09:28→20:20)
[2023-04-22 14:03] VITALS: BMI 29.1
[2023-04-22] MEDS ORDERED: Furosemide 20 MG/2 ML VIAL SLOW IVP SCH (15:30)
[2023-04-22] MEDS: Amiodarone 200 MG TAB PO SCH (20:20)
[2023-04-23] MEDS: HYDROcodone/Acetaminophen 10/325 mg Tablet PO SCH ×6 (01:32→20:55)
[2023-04-23] MEDS: Heparin 5,000 UNITS/ML VIAL SC SCH ×2 (08:49→20:56)
[2023-04-23] MEDS: Pregabalin 75 MG CAP PO SCH ×2 (08:50→20:55)
[2023-04-23] MEDS: Amiodarone 200 MG TAB PO SCH ×2 (08:50→20:56)
[2023-04-23] MEDS: Furosemide 40 MG TAB PO SCH (08:51)
[2023-04-23] MEDS: Carvedilol 3.125 MG TAB PO SCH ×2 (08:51→17:11)
[2023-04-23] MEDS: Atorvastatin Calcium 40 MG TAB PO SCH (08:51)
[2023-04-24] MEDS: HYDROcodone/Acetaminophen 10/325 mg Tablet PO SCH ×6 (00:40→16:26)
[2023-04-24 05:56] LABS: #Eosinphils 0.2 thou/uL (0.0-0.7); #Monocytes 1.2 thou/uL (0.11-0.59); #Neutrophils 5.4 thou/uL (1.40-6.50); %Basophils 0.4 % (0.0-1.0); %Eosinophils 2.1 % (0.0-10.0); %Lymphocytes 24.1 % (21.0-51.0); %Monocytes 13.3 % (0.0-10.0); %Neutrophils 59.9 % (42.0-75.0); Hematocrit 37.3 % (42.0-52.0); Hemoglobin 11.8 g/dL (14.0-18.0); Mean Corpuscular HGB CONC 31.6 g/dL (32.0-36.0); Mean Corpuscular Hemoglobin 29.1 pg (27.0-31.0); Mean Corpuscular Volume 92.1 fl (78.0-98.0); Mean Platelet Volume 10.7 fL (7.4-10.4); Platelet Count 288 10x3/uL (130-400); RBC Distribution Width 14.3 % (11.5-14.5); Red Blood Cell (RBC) Count 4.05 mill/uL (4.70-6.10); White Blood Cell (WBC) Count 9.1 10x3/uL (4.8-10.8)
[2023-04-24 06:22] LABS: Anion Gap 13 mmol/L (10-20); BUN (Urea Nitrogen) 42 mg/dL (8.4-25.7); Calc. Creatinine Clearance 51 mL/min (70-130); Calcium 8.8 mg/dL (7.8-10.44); Carbon Dioxide 29 mmol/L (23-31); Chloride 100 mmol/L (98-107); Estimated GFR 48; Glucose 109 mg/dL (83-110); Potassium 3.8 mmol/L (3.5-5.1); Sodium 138 mmol/L (136-145)
[2023-04-24] MEDS: Atorvastatin Calcium 40 MG TAB PO SCH (08:56)
[2023-04-24] MEDS: Pregabalin 75 MG CAP PO SCH (08:56)
[2023-04-24] MEDS: Furosemide 40 MG TAB PO SCH (08:57)
[2023-04-24] MEDS: Carvedilol 3.125 MG TAB PO SCH ×3 (08:57→16:27)
[2023-04-24] MEDS: Amiodarone 200 MG TAB PO SCH (08:58)
[2023-04-24] MEDS: Heparin 5,000 UNITS/ML VIAL SC SCH (08:59)
[2023-04-24 15:35] VITALS: BP 107/70; TEMP 97.6
== END 2023-04-24 17:00 | disposition home or self-care (01) | DRG 291 ==
LOC: ERS 23:44 → ERHOLD 04-21 04:54 → OBSVTOIN 04-21 04:54 → 2NO 04-21 16:03
PROVIDERS: ADMIT Student in an Organized Health Care Education/Training Program; ATTEND Internal Medicine
DX: I11.0 Hypertensive heart disease with heart failure (principal); I50.43 Acute on chronic combined systolic (congestive) and diastolic (congestive) heart failure; I25.810 Atherosclerosis of coronary artery bypass graft(s) without angina pectoris; N17.9 Acute kidney failure, unspecified; E78.00 Pure hypercholesterolemia, unspecified; F41.9 Anxiety disorder, unspecified; R51.9 Headache, unspecified; E78.2 Mixed hyperlipidemia; I44.7 Left bundle-branch block, unspecified; I25.5 Ischemic cardiomyopathy; T50.2X5A Adverse effect of carbonic-anhydrase inhibitors, benzothiadiazides and other diuretics, initial encounter; I48.0 Paroxysmal atrial fibrillation; Z95.0 Presence of cardiac pacemaker; R11.2 Nausea with vomiting, unspecified; Z95.1 Presence of aortocoronary bypass graft; Z98.890 Other specified postprocedural states; Z95.5 Presence of coronary angioplasty implant and graft; Z88.2 Allergy status to sulfonamides; Z79.82 Long term (current) use of aspirin; Z79.899 Other long term (current) drug therapy; Z90.49 Acquired absence of other specified parts of digestive tract
CPT/HCPCS: 36415; 36416; 70450; 71045; 74177; 80048; 80053; 81001; 83690; 83735; 83880; 84484; 85025; 93005; 96365; 96375; 97139; C9113; J0780; J1200; J1644; J1940; J2270; J2405; J2765; Q0162; Q9967

== ENCOUNTER 2023-05-16 12:03 | Inpatient (IN) | payer MEDICARE ==
[2023-05-16] MEDS ORDERED: Iopamidol-370 76% 500 ML MDV (1 ML CHARGE) ONE (12:18)
[2023-05-16] MEDS ORDERED: Ondansetron PF 4 MG/2 ML Vial ONE (12:51)
[2023-05-16] MEDS ORDERED: Morphine 4 MG/ML VIAL ONE (12:51)
[2023-05-16 12:53] LABS: #Monocytes 0.9 thou/uL (0.11-0.59); #Neutrophils 7.8 thou/uL (1.40-6.50); %Basophils 0.2 % (0.0-1.0); %Monocytes 8.5 % (0.0-10.0); Hematocrit 37.9 % (42.0-52.0); Hemoglobin 12.6 g/dL (14.0-18.0); Mean Corpuscular HGB CONC 33.2 g/dL (32.0-36.0); Mean Corpuscular Hemoglobin 29.7 pg (27.0-31.0); Mean Corpuscular Volume 89.4 fl (78.0-98.0); Mean Platelet Volume 10.3 fL (7.4-10.4); Platelet Count 275 10x3/uL (130-400); RBC Distribution Width 14.6 % (11.5-14.5); Red Blood Cell (RBC) Count 4.24 mill/uL (4.70-6.10); White Blood Cell (WBC) Count 10.1 10x3/uL (4.8-10.8)
[2023-05-16 13:01] LABS: Bilirubin Negative (Negative); Blood, Urine Small (Negative); Glucose, Urine (Dipstick) 100 mg/dL (Negative); Ketone, Urine Trace mg/dL (Negative); Leukocyte Negative (Negative); Nitrite Negative (Negative); Protein, Urine (Dipstick) Negative (Neg-Trace); Specific Gravity, Urine 1.015 (1.005-1.030); Urobilinogen 0.2 mg/dL (Less than 2)
[2023-05-16 13:02] LABS: Clarity Hazy (Clear)
[2023-05-16 13:10] LABS: ALT (SGPT) 11 U/L (8-55); AST (SGOT) 22 U/L (5-34); Albumin 4.1 g/dL (3.4-4.8); Alkaline Phosphatase 120 U/L (40-110); Anion Gap 15 mmol/L (10-20); BUN (Urea Nitrogen) 19 mg/dL (8.4-25.7); Bilirubin, Total 1.4 mg/dL (0.2-1.2); Calc. Creatinine Clearance 0 mL/min (70-130); Calcium 9.5 mg/dL (7.8-10.44); Carbon Dioxide 26 mmol/L (23-31); Chloride 94 mmol/L (98-107); Estimated GFR 79; Globulin 4.2 g/dL (2.4-3.5); Glucose 121 mg/dL (83-110); Lipase 10 U/L (8-78); Potassium 4.4 mmol/L (3.5-5.1); Protein, Total 8.3 g/dL (5.8-8.1); Sodium 131 mmol/L (136-145)
[2023-05-16 13:11] LABS: CAUTI Indications for Culture Dysuria,urgency,freq; RBC/HPF 0-3 HPF (0-3); Squamous Epithelial 0-3 HPF (0-3); WBC/HPF 0-3 HPF (0-3)
[2023-05-16 13:12] LABS: Bacteria/HPF 1+ HPF (None Seen)
[2023-05-16 13:13] LABS: Urine Culture Reflex No No
[2023-05-16 13:17] LABS: Troponin I 0.214 ng/mL (< 0.028)
[2023-05-16] MEDS ORDERED: Aspirin Chewable 81 MG TAB ONE (14:59)
[2023-05-16] MEDS ORDERED: Enoxaparin 100 MG (1 mL) SYRINGE ONE (15:00)
[2023-05-16] MEDS ORDERED: Nitroglycerin 0.4 MG TAB (25 Tab Bottle) SL PRN (16:29)
[2023-05-16] MEDS: HYDROcodone/Acetaminophen 10/325 mg Tablet PO PRN ×2 (17:26→20:56)
[2023-05-16] MEDS: Carvedilol 3.125 MG TAB PO SCH (17:26)
[2023-05-16 20:52] LABS: Troponin I 0.286 ng/mL (< 0.028)
[2023-05-16] MEDS: Amiodarone 200 MG TAB PO SCH (20:57)
[2023-05-16] MEDS: Ondansetron ODT 4 MG TAB SL PRN (20:57)
[2023-05-16] MEDS: Pregabalin 75 MG CAP PO SCH (20:58)
[2023-05-17] MEDS: HYDROcodone/Acetaminophen 10/325 mg Tablet PO PRN ×6 (01:16→23:50)
[2023-05-17] MEDS: Furosemide 40 MG (4 mL) VIAL SLOW IVP SCH ×2 (05:08→15:07)
[2023-05-17 05:13] LABS: #Monocytes 1.1 thou/uL (0.11-0.59); #Neutrophils 6.3 thou/uL (1.40-6.50); %Basophils 0.2 % (0.0-1.0); %Eosinophils 0.1 % (0.0-10.0); %Lymphocytes 19.5 % (21.0-51.0); %Monocytes 11.7 % (0.0-10.0); %Neutrophils 68.2 % (42.0-75.0); Hematocrit 35.2 % (42.0-52.0); Hemoglobin 11.4 g/dL (14.0-18.0); Mean Corpuscular HGB CONC 32.4 g/dL (32.0-36.0); Mean Corpuscular Hemoglobin 29.2 pg (27.0-31.0); Mean Corpuscular Volume 90.3 fl (78.0-98.0); Mean Platelet Volume 10.8 fL (7.4-10.4); Platelet Count 256 10x3/uL (130-400); RBC Distribution Width 14.7 % (11.5-14.5); White Blood Cell (WBC) Count 9.3 10x3/uL (4.8-10.8)
[2023-05-17] MEDS: Ondansetron ODT 4 MG TAB SL PRN (05:18)
[2023-05-17 05:41] LABS: Anion Gap 14 mmol/L (10-20); BUN (Urea Nitrogen) 18 mg/dL (8.4-25.7); Calc. Creatinine Clearance 83 mL/min (70-130); Calcium 8.9 mg/dL (7.8-10.44); Carbon Dioxide 26 mmol/L (23-31); Chloride 94 mmol/L (98-107); Estimated GFR 81; Glucose 96 mg/dL (83-110); Magnesium 2.1 mg/dL (1.6-2.6); Potassium 4.1 mmol/L (3.5-5.1); Sodium 130 mmol/L (136-145)
[2023-05-17] MEDS: Pregabalin 75 MG CAP PO SCH ×2 (08:45→21:30)
[2023-05-17] MEDS: Amlodipine 5 MG TAB PO SCH (08:46)
[2023-05-17] MEDS: Aspirin Chewable 81 MG TAB PO SCH (08:46)
[2023-05-17] MEDS: Atorvastatin Calcium 40 MG TAB PO SCH (08:46)
[2023-05-17] MEDS: Amiodarone 200 MG TAB PO SCH (08:47)
[2023-05-17] MEDS: Carvedilol 3.125 MG TAB PO SCH ×2 (08:47→18:23)
[2023-05-17] MEDS: Enoxaparin 40 MG (0.4 mL) SYRINGE SC SCH (08:47)
[2023-05-17] MEDS: Pantoprazole 40 MG VIAL IVP SCH (18:22)
[2023-05-18] MEDS: HYDROcodone/Acetaminophen 10/325 mg Tablet PO PRN ×5 (04:08→22:03)
[2023-05-18 04:28] LABS: #Eosinphils 0.1 thou/uL (0.0-0.7); #Monocytes 1.4 thou/uL (0.11-0.59); #Neutrophils 5.2 thou/uL (1.40-6.50); %Basophils 0.2 % (0.0-1.0); %Eosinophils 0.6 % (0.0-10.0); %Lymphocytes 24.3 % (21.0-51.0); %Monocytes 15.3 % (0.0-10.0); %Neutrophils 59.4 % (42.0-75.0); Hematocrit 36.9 % (42.0-52.0); Hemoglobin 12.2 g/dL (14.0-18.0); Mean Corpuscular HGB CONC 33.1 g/dL (32.0-36.0); Mean Corpuscular Hemoglobin 29.5 pg (27.0-31.0); Mean Corpuscular Volume 89.1 fl (78.0-98.0); Mean Platelet Volume 10.7 fL (7.4-10.4); Platelet Count 265 10x3/uL (130-400); RBC Distribution Width 14.6 % (11.5-14.5); Red Blood Cell (RBC) Count 4.14 mill/uL (4.70-6.10); White Blood Cell (WBC) Count 8.8 10x3/uL (4.8-10.8)
[2023-05-18 05:03] LABS: Anion Gap 14 mmol/L (10-20); BUN (Urea Nitrogen) 26 mg/dL (8.4-25.7); Calc. Creatinine Clearance 65 mL/min (70-130); Calcium 8.8 mg/dL (7.8-10.44); Carbon Dioxide 29 mmol/L (23-31); Chloride 93 mmol/L (98-107); Estimated GFR 61; Glucose 92 mg/dL (83-110); Potassium 3.4 mmol/L (3.5-5.1); Sodium 133 mmol/L (136-145)
[2023-05-18] MEDS: Furosemide 40 MG (4 mL) VIAL SLOW IVP SCH ×2 (06:15→13:26)
[2023-05-18] MEDS: Aspirin Chewable 81 MG TAB PO SCH (07:54)
[2023-05-18] MEDS: Pregabalin 75 MG CAP PO SCH ×2 (07:54→22:03)
[2023-05-18] MEDS: Pantoprazole 40 MG VIAL IVP SCH ×2 (07:54→07:55)
[2023-05-18] MEDS: Atorvastatin Calcium 40 MG TAB PO SCH (07:54)
[2023-05-18] MEDS: Enoxaparin 40 MG (0.4 mL) SYRINGE SC SCH (07:55)
[2023-05-18] MEDS: Carvedilol 3.125 MG TAB PO SCH ×2 (07:59→16:59)
[2023-05-18] MEDS: Amlodipine 5 MG TAB PO SCH (07:59)
[2023-05-18] MEDS ORDERED: traMADol HCl 50 MG TAB PO PRN (09:17)
[2023-05-18] MEDS: Lidocaine 4% Patch TD SCH (10:13)
[2023-05-18] MEDS ORDERED: Nitroglycerin 0.4 MG TAB (25 Tab Bottle) SL PRN (14:25)
[2023-05-18] MEDS: LIDOCAINE Patch Removal TOP SCH (22:04)
[2023-05-18] MEDS ORDERED: Sodium Chloride 0.9% 500 ML IV SCH (23:45)
[2023-05-19] MEDS: HYDROcodone/Acetaminophen 10/325 mg Tablet PO PRN ×4 (03:59→20:55)
[2023-05-19 05:07] LABS: #Eosinphils 0.1 thou/uL (0.0-0.7); #Monocytes 1.1 thou/uL (0.11-0.59); #Neutrophils 3.8 thou/uL (1.40-6.50); %Basophils 0.3 % (0.0-1.0); %Eosinophils 1.6 % (0.0-10.0); %Lymphocytes 31.4 % (21.0-51.0); %Monocytes 15.4 % (0.0-10.0); Hematocrit 36.3 % (42.0-52.0); Hemoglobin 11.9 g/dL (14.0-18.0); Mean Corpuscular HGB CONC 32.8 g/dL (32.0-36.0); Mean Corpuscular Hemoglobin 29.7 pg (27.0-31.0); Mean Corpuscular Volume 90.5 fl (78.0-98.0); Mean Platelet Volume 10.8 fL (7.4-10.4); Platelet Count 255 10x3/uL (130-400); RBC Distribution Width 14.9 % (11.5-14.5); Red Blood Cell (RBC) Count 4.01 mill/uL (4.70-6.10); White Blood Cell (WBC) Count 7.4 10x3/uL (4.8-10.8)
[2023-05-19 05:38] LABS: Anion Gap 16 mmol/L (10-20); BUN (Urea Nitrogen) 39 mg/dL (8.4-25.7); Calc. Creatinine Clearance 46 mL/min (70-130); Calcium 8.5 mg/dL (7.8-10.44); Carbon Dioxide 29 mmol/L (23-31); Chloride 95 mmol/L (98-107); Estimated GFR 41; Glucose 94 mg/dL (83-110); Potassium 3.6 mmol/L (3.5-5.1); Sodium 136 mmol/L (136-145)
[2023-05-19] MEDS: Furosemide 40 MG (4 mL) VIAL SLOW IVP SCH (05:55)
[2023-05-19] MEDS: Furosemide 40 MG TAB PO SCH (08:47)
[2023-05-19] MEDS: Pregabalin 75 MG CAP PO SCH ×2 (08:48→20:56)
[2023-05-19] MEDS: Atorvastatin Calcium 40 MG TAB PO SCH (08:48)
[2023-05-19] MEDS: Enoxaparin 40 MG (0.4 mL) SYRINGE SC SCH (08:48)
[2023-05-19] MEDS: Aspirin Chewable 81 MG TAB PO SCH (08:48)
[2023-05-19] MEDS: Carvedilol 3.125 MG TAB PO SCH ×2 (08:48→17:39)
[2023-05-19] MEDS: Lidocaine 4% Patch TD SCH (17:39)
[2023-05-19] MEDS: LIDOCAINE Patch Removal TOP SCH (20:56)
[2023-05-20] MEDS: HYDROcodone/Acetaminophen 10/325 mg Tablet PO PRN ×5 (02:18→22:12)
[2023-05-20 05:21] LABS: #Eosinphils 0.2 thou/uL (0.0-0.7); #Monocytes 1.2 thou/uL (0.11-0.59); #Neutrophils 4.4 thou/uL (1.40-6.50); %Basophils 0.4 % (0.0-1.0); %Eosinophils 2.8 % (0.0-10.0); %Lymphocytes 27.1 % (21.0-51.0); %Monocytes 14.9 % (0.0-10.0); %Neutrophils 54.7 % (42.0-75.0); Hematocrit 35.7 % (42.0-52.0); Hemoglobin 11.6 g/dL (14.0-18.0); Mean Corpuscular HGB CONC 32.5 g/dL (32.0-36.0); Mean Corpuscular Volume 92.2 fl (78.0-98.0); Platelet Count 247 10x3/uL (130-400); RBC Distribution Width 14.9 % (11.5-14.5); Red Blood Cell (RBC) Count 3.87 mill/uL (4.70-6.10)
[2023-05-20 05:47] LABS: Anion Gap 12 mmol/L (10-20); BUN (Urea Nitrogen) 39 mg/dL (8.4-25.7); Calc. Creatinine Clearance 51 mL/min (70-130); Calcium 8.5 mg/dL (7.8-10.44); Carbon Dioxide 32 mmol/L (23-31); Chloride 97 mmol/L (98-107); Estimated GFR 47; Glucose 102 mg/dL (83-110); Potassium 3.5 mmol/L (3.5-5.1); Sodium 137 mmol/L (136-145)
[2023-05-20] MEDS: Pregabalin 75 MG CAP PO SCH ×2 (10:09→22:15)
[2023-05-20] MEDS: Enoxaparin 40 MG (0.4 mL) SYRINGE SC SCH (10:09)
[2023-05-20] MEDS: Carvedilol 3.125 MG TAB PO SCH ×2 (10:10→17:03)
[2023-05-20] MEDS: Atorvastatin Calcium 40 MG TAB PO SCH (10:10)
[2023-05-20] MEDS: Aspirin Chewable 81 MG TAB PO SCH (10:10)
[2023-05-20] MEDS: Furosemide 40 MG TAB PO SCH (10:10)
[2023-05-20] MEDS: Lidocaine 4% Patch TD SCH (10:10)
[2023-05-20 17:03] VITALS: BMI 28.9
[2023-05-20] MEDS: LIDOCAINE Patch Removal TOP SCH (22:17)
[2023-05-21] MEDS: HYDROcodone/Acetaminophen 10/325 mg Tablet PO PRN ×4 (02:27→20:50)
[2023-05-21 04:38] LABS: #Eosinphils 0.3 thou/uL (0.0-0.7); #Monocytes 1.4 thou/uL (0.11-0.59); %Basophils 0.2 % (0.0-1.0); %Eosinophils 3.7 % (0.0-10.0); %Lymphocytes 25.1 % (21.0-51.0); %Monocytes 15.4 % (0.0-10.0); %Neutrophils 55.4 % (42.0-75.0); Hematocrit 35.3 % (42.0-52.0); Hemoglobin 11.3 g/dL (14.0-18.0); Mean Corpuscular Hemoglobin 29.8 pg (27.0-31.0); Mean Corpuscular Volume 93.1 fl (78.0-98.0); Mean Platelet Volume 10.7 fL (7.4-10.4); Platelet Count 235 10x3/uL (130-400); RBC Distribution Width 14.8 % (11.5-14.5); Red Blood Cell (RBC) Count 3.79 mill/uL (4.70-6.10)
[2023-05-21 05:02] LABS: Anion Gap 14 mmol/L (10-20); BUN (Urea Nitrogen) 39 mg/dL (8.4-25.7); Calc. Creatinine Clearance 50 mL/min (70-130); Calcium 8.4 mg/dL (7.8-10.44); Carbon Dioxide 31 mmol/L (23-31); Chloride 98 mmol/L (98-107); Estimated GFR 45; Glucose 100 mg/dL (83-110); Potassium 3.7 mmol/L (3.5-5.1); Sodium 139 mmol/L (136-145)
[2023-05-21] MEDS: Pregabalin 75 MG CAP PO SCH ×2 (09:28→20:50)
[2023-05-21] MEDS: Atorvastatin Calcium 40 MG TAB PO SCH (09:28)
[2023-05-21] MEDS: Lidocaine 4% Patch TD SCH (09:28)
[2023-05-21] MEDS: Enoxaparin 40 MG (0.4 mL) SYRINGE SC SCH (09:28)
[2023-05-21] MEDS: Aspirin Chewable 81 MG TAB PO SCH (09:29)
[2023-05-21] MEDS: Carvedilol 3.125 MG TAB PO SCH ×2 (09:29→16:18)
[2023-05-21] MEDS: Furosemide 40 MG TAB PO SCH (09:29)
[2023-05-21] MEDS: Tramadol Hcl [Tramadol Hcl Er] 200 MG Tab.Er.24h PO SCH ×2 (10:28→17:27)
[2023-05-21] MEDS ORDERED: Mineral Oil ENEMA PR SCH (14:45)
[2023-05-21] MEDS: LIDOCAINE Patch Removal TOP SCH (20:51)
[2023-05-22] MEDS: HYDROcodone/Acetaminophen 10/325 mg Tablet PO PRN ×2 (01:18→09:26)
[2023-05-22] MEDS: Enoxaparin 40 MG (0.4 mL) SYRINGE SC SCH (09:22)
[2023-05-22] MEDS: Aspirin Chewable 81 MG TAB PO SCH (09:22)
[2023-05-22] MEDS: Lidocaine 4% Patch TD SCH (09:22)
[2023-05-22] MEDS: Carvedilol 3.125 MG TAB PO SCH ×2 (09:22→16:33)
[2023-05-22] MEDS: Atorvastatin Calcium 40 MG TAB PO SCH (09:22)
[2023-05-22] MEDS: Pregabalin 75 MG CAP PO SCH (09:24)
[2023-05-22 15:23] LABS: Anion Gap 16 mmol/L (10-20); BUN (Urea Nitrogen) 29 mg/dL (8.4-25.7); Calc. Creatinine Clearance 67 mL/min (70-130); Carbon Dioxide 28 mmol/L (23-31); Chloride 99 mmol/L (98-107); Estimated GFR 64; Glucose 132 mg/dL (83-110); Potassium 3.6 mmol/L (3.5-5.1); Sodium 139 mmol/L (136-145)
[2023-05-22 15:46] VITALS: BP 114/57; TEMP 97.3
== END 2023-05-22 17:46 | disposition home health service (06) | DRG 280 ==
LOC: ERS 12:03 → 2NO 17:17
PROVIDERS: ADMIT Internal Medicine; ATTEND Internal Medicine
DX: I13.0 Hypertensive heart and chronic kidney disease with heart failure and stage 1 through stage 4 chronic kidney disease, or unspecified chronic kidney disease (principal); I50.33 Acute on chronic diastolic (congestive) heart failure; I21.A1 Myocardial infarction type 2; N17.9 Acute kidney failure, unspecified; I25.10 Atherosclerotic heart disease of native coronary artery without angina pectoris; E78.5 Hyperlipidemia, unspecified; Z66 Do not resuscitate; I48.0 Paroxysmal atrial fibrillation; R79.89 Other specified abnormal findings of blood chemistry; K57.30 Diverticulosis of large intestine without perforation or abscess without bleeding; M47.814 Spondylosis without myelopathy or radiculopathy, thoracic region; F41.9 Anxiety disorder, unspecified; K59.00 Constipation, unspecified; M54.9 Dorsalgia, unspecified; G89.29 Other chronic pain; I25.5 Ischemic cardiomyopathy; I95.9 Hypotension, unspecified; Z96.659 Presence of unspecified artificial knee joint; Z95.1 Presence of aortocoronary bypass graft; Z88.2 Allergy status to sulfonamides; Z79.82 Long term (current) use of aspirin; Z79.899 Other long term (current) drug therapy; Z98.890 Other specified postprocedural states; Z90.49 Acquired absence of other specified parts of digestive tract
CPT/HCPCS: 36415; 71045; 72128; 74177; 80048; 80053; 81001; 83605; 83690; 83735; 83880; 84484; 85025; 93005; 93306; 93798; 94760; C9113; J1650; J1940; J2270; J2405; Q0162; Q9967

== ENCOUNTER 2023-06-24 10:49 | Inpatient (IN) | payer MEDICARE ==
[2023-06-24 12:01] LABS: #Monocytes 0.8 thou/uL (0.11-0.59); %Basophils 0.3 % (0.0-1.0); %Eosinophils 0.1 % (0.0-10.0); %Lymphocytes 13.4 % (21.0-51.0); %Monocytes 7.9 % (0.0-10.0); %Neutrophils 77.9 % (42.0-75.0); Hematocrit 36.5 % (42.0-52.0); Hemoglobin 12.1 g/dL (14.0-18.0); Mean Corpuscular HGB CONC 33.2 g/dL (32.0-36.0); Mean Corpuscular Hemoglobin 30.2 pg (27.0-31.0); Mean Platelet Volume 10.2 fL (7.4-10.4); Platelet Count 283 10x3/uL (130-400); RBC Distribution Width 14.3 % (11.5-14.5); Red Blood Cell (RBC) Count 4.01 mill/uL (4.70-6.10); White Blood Cell (WBC) Count 10.2 10x3/uL (4.8-10.8)
[2023-06-24] MEDS ORDERED: diphenhydrAMINE 50 MG/ML VIAL ONE (12:13)
[2023-06-24] MEDS ORDERED: Metoclopramide HCl 10 MG (2 mL) VIAL ONE (12:14)
[2023-06-24] MEDS ORDERED: Famotidine/PF 20 mg/2ml Vial ONE (12:14)
[2023-06-24 12:28] LABS: ALT (SGPT) 10 U/L (8-55); AST (SGOT) 17 U/L (5-34); Albumin 4.2 g/dL (3.4-4.8); Alkaline Phosphatase 122 U/L (40-110); Anion Gap 14 mmol/L (10-20); BUN (Urea Nitrogen) 20 mg/dL (8.4-25.7); Bilirubin, Total 1.2 mg/dL (0.2-1.2); Calc. Creatinine Clearance 0 mL/min (70-130); Calcium 9.6 mg/dL (7.8-10.44); Carbon Dioxide 28 mmol/L (23-31); Chloride 96 mmol/L (98-107); Estimated GFR 74; Globulin 3.8 g/dL (2.4-3.5); Glucose 100 mg/dL (83-110); Lipase 18 U/L (8-78); Potassium 4.2 mmol/L (3.5-5.1); Sodium 134 mmol/L (136-145)
[2023-06-24 12:32] LABS: Troponin I 0.011 ng/mL (< 0.028)
[2023-06-24] MEDS ORDERED: Iopamidol-370 76% 500 ML MDV (1 ML CHARGE) ONE (15:12)
[2023-06-24] MEDS ORDERED: Acetaminophen 325 MG TAB PO PRN (15:42)
[2023-06-24] MEDS ORDERED: Ondansetron ODT 4 MG TAB PO PRN (15:42)
[2023-06-24] MEDS ORDERED: Sodium Chloride 0.9% 1,000 ML IV SCH (15:45)
[2023-06-24 16:21] VITALS: BMI 29.8
[2023-06-24] MEDS ORDERED: Bisacodyl 10 MG SUPP PR PRN (16:35)
[2023-06-24] MEDS ORDERED: Bisacodyl 10 MG SUPP PR SCH (16:45)
[2023-06-24] MEDS: Ondansetron PF 4 MG/2 ML Vial IVP PRN (16:56)
[2023-06-24] MEDS: Famotidine/PF 20 mg/2ml Vial SLOW IVP SCH (20:05)
[2023-06-24] MEDS: Ketorolac Tromethamine 30 MG (1 mL) VIAL IVP PRN (20:06)
[2023-06-24] MEDS: Morphine 2 MG/ML VIAL SLOW IVP PRN (22:20)
[2023-06-25] MEDS: Ondansetron PF 4 MG/2 ML Vial IVP PRN ×2 (01:52→14:38)
[2023-06-25] MEDS: Morphine 2 MG/ML VIAL SLOW IVP PRN ×3 (03:05→14:40)
[2023-06-25 06:26] LABS: #Eosinphils 0.1 thou/uL (0.0-0.7); #Monocytes 1.1 thou/uL (0.11-0.59); #Neutrophils 4.9 thou/uL (1.40-6.50); %Basophils 0.4 % (0.0-1.0); %Lymphocytes 21.9 % (21.0-51.0); %Monocytes 14.3 % (0.0-10.0); %Neutrophils 62.1 % (42.0-75.0); Hematocrit 31.5 % (42.0-52.0); Hemoglobin 10.4 g/dL (14.0-18.0); Mean Corpuscular Hemoglobin 30.2 pg (27.0-31.0); Mean Corpuscular Volume 91.6 fl (78.0-98.0); Mean Platelet Volume 10.8 fL (7.4-10.4); Platelet Count 263 10x3/uL (130-400); RBC Distribution Width 14.5 % (11.5-14.5); Red Blood Cell (RBC) Count 3.44 mill/uL (4.70-6.10)
[2023-06-25 06:57] LABS: Anion Gap 11 mmol/L (10-20); BUN (Urea Nitrogen) 22 mg/dL (8.4-25.7); Calc. Creatinine Clearance 67 mL/min (70-130); Calcium 8.7 mg/dL (7.8-10.44); Carbon Dioxide 26 mmol/L (23-31); Chloride 104 mmol/L (98-107); Estimated GFR 62; Glucose 90 mg/dL (83-110); Potassium 3.8 mmol/L (3.5-5.1); Sodium 137 mmol/L (136-145)
[2023-06-25] MEDS: Famotidine/PF 20 mg/2ml Vial SLOW IVP SCH ×2 (08:20→20:31)
[2023-06-25] MEDS ORDERED: FLU VACC QS2023(65UP)/MF59C/PF 60 MCG/0.5 ML SYRINGE IM ONE (09:00)
[2023-06-25] MEDS ORDERED: Polyethylene Glycol 3350 17 GM Packet PO SCH (10:00)
[2023-06-25] MEDS ORDERED: Senokot S 8.6-50 MG TAB PO SCH (10:15)
[2023-06-25] MEDS ORDERED: FLU VACC QS2023-24(6MOS UP)/PF 60 MCG/0.5 ML SYRINGE IM ONE (11:29)
[2023-06-25] MEDS: Ketorolac Tromethamine 30 MG (1 mL) VIAL IVP PRN (20:31)
[2023-06-25] MEDS: Senokot S 8.6-50 MG TAB PO SCH (20:31)
[2023-06-26] MEDS: Morphine 2 MG/ML VIAL SLOW IVP PRN ×4 (01:52→23:29)
[2023-06-26] MEDS: Famotidine/PF 20 mg/2ml Vial SLOW IVP SCH (08:44)
[2023-06-26] MEDS: Polyethylene Glycol 3350 17 GM Packet PO SCH (08:44)
[2023-06-26] MEDS: Senokot S 8.6-50 MG TAB PO SCH ×2 (08:44→20:50)
[2023-06-26] MEDS ORDERED: Losartan 25 MG TAB PO SCH (09:45)
[2023-06-26] MEDS ORDERED: hydrALAZINE 20 MG/ML VIAL SLOW IVP PRN (13:18)
[2023-06-26] MEDS ORDERED: hydrALAZINE 20 MG/ML VIAL SLOW IVP SCH (13:30)
[2023-06-26] MEDS: Carvedilol 3.125 MG TAB PO SCH (17:06)
[2023-06-26] MEDS: Famotidine 20 MG TAB PO SCH (20:51)
[2023-06-26] MEDS: HYDROcodone/Acetaminophen 10/325 mg Tablet PO SCH (20:51)
[2023-06-27] MEDS: HYDROcodone/Acetaminophen 10/325 mg Tablet PO SCH (05:55)
[2023-06-27 06:20] LABS: #Eosinphils 0.2 thou/uL (0.0-0.7); #Monocytes 1.1 thou/uL (0.11-0.59); %Basophils 0.4 % (0.0-1.0); %Eosinophils 3.2 % (0.0-10.0); %Lymphocytes 22.8 % (21.0-51.0); %Monocytes 15.6 % (0.0-10.0); %Neutrophils 57.7 % (42.0-75.0); Hematocrit 34.1 % (42.0-52.0); Hemoglobin 10.9 g/dL (14.0-18.0); Mean Corpuscular Hemoglobin 29.7 pg (27.0-31.0); Mean Corpuscular Volume 92.9 fl (78.0-98.0); Mean Platelet Volume 10.5 fL (7.4-10.4); Platelet Count 255 10x3/uL (130-400); RBC Distribution Width 14.8 % (11.5-14.5); Red Blood Cell (RBC) Count 3.67 mill/uL (4.70-6.10)
[2023-06-27 06:42] LABS: Anion Gap 13 mmol/L (10-20); BUN (Urea Nitrogen) 21 mg/dL (8.4-25.7); Calc. Creatinine Clearance 69 mL/min (70-130); Carbon Dioxide 25 mmol/L (23-31); Chloride 104 mmol/L (98-107); Estimated GFR 64; Glucose 95 mg/dL (83-110); Potassium 3.8 mmol/L (3.5-5.1); Sodium 138 mmol/L (136-145)
[2023-06-27 08:09] VITALS: TEMP 98.1
[2023-06-27] MEDS: Senokot S 8.6-50 MG TAB PO SCH (08:43)
[2023-06-27] MEDS: Polyethylene Glycol 3350 17 GM Packet PO SCH (08:43)
[2023-06-27] MEDS: Carvedilol 3.125 MG TAB PO SCH (08:43)
[2023-06-27] MEDS: Ketorolac Tromethamine 30 MG (1 mL) VIAL IVP PRN (08:44)
[2023-06-27] MEDS: Famotidine 20 MG TAB PO SCH (08:44)
[2023-06-27] MEDS ORDERED: Atorvastatin Calcium 40 MG TAB PO SCH (09:00)
[2023-06-27] MEDS ORDERED: Furosemide 40 MG TAB PO SCH (09:00)
[2023-06-27] MEDS ORDERED: Losartan 25 MG TAB PO SCH (09:00)
[2023-06-27] MEDS ORDERED: Aspirin Chewable 81 MG TAB PO SCH (09:00)
[2023-06-27 12:12] VITALS: BP 164/91
== END 2023-06-27 13:40 | disposition home or self-care (01) | DRG 392 ==
LOC: ERS 10:49 → T4-B 15:10 → OBSVTOIN 06-26 14:49
PROVIDERS: ADMIT Internal Medicine; ATTEND Internal Medicine
DX: K59.03 Drug induced constipation (principal); I48.0 Paroxysmal atrial fibrillation; E78.5 Hyperlipidemia, unspecified; I25.10 Atherosclerotic heart disease of native coronary artery without angina pectoris; G89.29 Other chronic pain; M54.9 Dorsalgia, unspecified; E78.00 Pure hypercholesterolemia, unspecified; F41.9 Anxiety disorder, unspecified; I71.40 Abdominal aortic aneurysm, without rupture, unspecified; T40.2X5A Adverse effect of other opioids, initial encounter; I11.0 Hypertensive heart disease with heart failure; I50.9 Heart failure, unspecified; Z88.2 Allergy status to sulfonamides; Z79.899 Other long term (current) drug therapy; Z95.1 Presence of aortocoronary bypass graft; Z98.890 Other specified postprocedural states; Z79.82 Long term (current) use of aspirin; Z95.0 Presence of cardiac pacemaker; Z95.5 Presence of coronary angioplasty implant and graft; Z90.49 Acquired absence of other specified parts of digestive tract
CPT/HCPCS: 36415; 70450; 74018; 74177; 80048; 80053; 83690; 84484; 85025; 90471; 90686; 90694; 93005; 96361; 96372; 96374; 96375; 96376; G0008; G0378; J0360; J1200; J1885; J2272; J2405; J2765; J7050; Q9967; S0028